=== PATIENT | male | born 1940 | race Caucasian/White ===

== ENCOUNTER 2018-09-16 14:06 | Inpatient (IN) | payer MEDICARE, OTHER, SELFPAY ==
[2018-09-16] VITALS (8 sets, daily range): BP systolic 101–135; BP diastolic 55–85; PULSE 69–73; RESP 13–19; TEMP 36.3–36.4; O2SAT 96–100; BMI 29.2
--- NOTE | 2018-09-16 | DI.ECHO.S_ITS ---
[facility] +---------+ : : [address] : : : [place], [place] : : : : [id number] : : : : Phone: [phone]+ Echocardiogram Report + + :Name: LIDIA STEVENS Study Date: 09/17/2018 Height: 76 in : :[facility] Exam Location: [facility] Weight: 240 lb : : Gender: Male BSA: 2.4 m2 : :: 1940 Age: 77 yrs BP: 116/74 mmHg: :Reason For Study: Heart failure / Valve repair : :Ordering Physician: Nik : :Hospitalist Performed By: Xiomara Page : :Referring: JONATHAN MOSES : + + Interpretation Summary There is mild concentric left ventricular hypertrophy. The left ventricle is normal in size. Left ventricular ejection fraction is estimated to be 50 +/- 5%. Left ventricular systolic function has significantly improved compared to the previous exam. Mild inferolateral hypokinesis and basal inferior hypokinesis The right ventricle is moderate to severely dilated. There is a pacemaker lead in the right ventricle. Right ventricular systolic function is moderately reduced. Both atria are severely dilated. The mitral valve has been surgically repaired and an annuloplasty ring sewn in place. The aortic valve is mildly calcified. There is mild aortic regurgitation. There is moderate tricuspid regurgitation. Right ventricular systolic pressure is estimated to be 25 mmHg plus the clinically estimated CVP which cannot be estimated on this exam. Procedure: A two-dimensional transthoracic echocardiogram with color flow and Doppler was performed. The study quality was technically difficult. Comparison is made with the echocardiogram of 05/09/2011. The patient has a paced rhythm. Left Ventricle: The left ventricle is normal in size. There is mild concentric left ventricular hypertrophy. Left ventricular ejection fraction is estimated to be 50 +/- 5%. Left ventricular systolic function has significantly improved compared to the previous exam. Mild inferolateral hypokinesis and basal inferior hypokinesis. Diastolic function could not be accurately assessed due to paced rhythm. Right Ventricle: The right ventricle is moderate to severely dilated. There is a pacemaker lead in the right ventricle. Right ventricular systolic function is moderately reduced. Atria: Both atria are severely dilated. There is no Doppler evidence for an interatrial shunt. The interatrial septum bows toward right atrium consistent with elevated left atrial pressure. Mitral Valve: The mitral valve has been surgically repaired and an annuloplasty ring sewn in place. There is trace mitral regurgitation. Aortic Valve: The aortic valve is not well visualized. The aortic valve is mildly calcified. The aortic valve opens well. There is mild aortic regurgitation. Tricuspid Valve: The tricuspid valve leaflets are thin and pliable. There is moderate tricuspid regurgitation. Right ventricular systolic pressure is estimated to be 25 mmHg plus the clinically estimated CVP which cannot be estimated on this exam. Pulmonic Valve: The pulmonic valve is not well visualized. There is a trace or physiologic amount of pulmonic regurgitation. Great Vessels: The aortic root is normal size. The ascending aorta could not be visualized. The aortic arch could not be visualized. The pulmonary artery is not well visualized, but is probably normal size. The inferior vena cava was not visualized. Pericardium/ Pleura There is no pericardial effusion. There is no pleural effusion. MMode/2D Measurements & Calculations LVIDd: 4.8 cm LVOT diam: 2.3 cm LVIDs: 3.7 cm Ao root diam: 3.8 cm FS: 22.3 % EPSS: 0.28 cm IVSd: 1.1 cm LVPWd: 1.2 cm LV maier. diameter/BSA (cm/m^2): 2.0 LV sys. diameter/BSA (cm/m^2): 1.6 LA A2 area: 58.9 cm2 RA long axis: 8.8 cm LA A4 area: 62.1 cm2 RA area: 49.5 cm2 LA length (vol): 9.7 cm RA vol: 236.7 ml LA vol: 320.1 ml RA : 98.9 ml/m2 LA vol index: 133.7 ml/m2 RVD1 (basal): 5.7 cm Doppler Measurements & Calculations Ao V2 max: 138.9 cm/sec LVOT Max Lg: 85.7 cm/sec Ao V2 mean: 101.0 cm/sec LV V1 max P.9 mmHg Ao max P.7 mmHg LV V1 VTI: 16.8 cm Ao mean P.4 mmHg CARLOS(I,D): 2.7 cm2 Ao V2 VTI: 25.8 cm CARLOS(V,D): 2.6 cm2 sev ratio: 0.65 CARLOS indexed to BSA (cm^2/m^2): 1.1 AI P1/2t: 540.2 msec AI dec slope: 226.1 cm/sec2 MV E max lg: 146.1 cm/sec TR max lg: 251.6 cm/sec MV P1/2t: 71.4 msec TR max P.3 mmHg MVA(VTI): 1.9 cm2 PA V2 max: 69.3 cm/sec PA V2 mean: 51.2 cm/sec PA mean P.1 mmHg PA Accel Time: 0.09 sec MV V2 mean: 63.3 cm/sec MV P1/2t max lg: 147.0 cm/sec MV mean P.3 mmHg MVA(P1/2t): 3.1 cm2 MV V2 VTI: 36.7 cm SV(LVOT): 70.1 ml Reading Physician:04:59 PM
--- NOTE | 2018-09-16 14:58 | DI.RAD.S_ITS ---
PROCEDURE: XR CHEST 1V INDICATIONS: SHORTNESS OF BREATH TECHNIQUE: One view of the chest was acquired. COMPARISON: [facility], , CHEST 1 VIEW, 10/01/2013, 21:21. FINDINGS: Surgical changes and devices: Median sternotomy wires and left chest wall cardiac device position is unchanged. Lungs and pleura: Blunting of left costophrenic angle is seen suggestive of trace left pleural effusion and left basilar atelectasis. No definite focal infiltrate. No gross pneumothorax. Mediastinum: Mediastinal contours appear normal. Heart size is enlarged. Bones and chest wall: No suspicious bony lesions. Overlying soft tissues appear unremarkable. IMPRESSION: Suggestion of trace left pleural effusion/thickening with left basilar atelectasis. No focal infiltrate or pneumothorax. Dictated by: Sanjay Vann M.D. on 09/16/2018 at 15:39 Approved by: Sanjay Vann M.D. on 09/16/2018 at 15:40
[2018-09-16 15:04] LABS: Add Manual Diff / Slide Review NO; Basophils Absolute Auto 100 /uL (0-100); Basophils Percent Auto 0.8 % (0-2); Eosinophils Absolute Auto 0 /uL (0-450); Eosinophils Percent Auto 0.4 % (2-4); Hematocrit 28.9 % (41-53); Hemoglobin 9.8 g/dL (13.5-17.5); Lymphocytes Absolute Auto 900 /uL (1100-4500); Lymphocytes Percent Auto 9.7 % (25-40); Mean Corpuscular HGB Conc 33.8 % (30-36); Mean Corpuscular Hemoglobin 32.2 PG (26-34); Mean Corpuscular Volume 95.2 fL (80-100); Monocytes Absolute Auto 1000 /uL (0-900); Neutrophils Absolute Auto 7800 /uL (1500-7000); Neutrophils Percent Auto 79.1 % (50-75); Platelet Count 183 X10^3/uL (150-400); Red Blood Cell Count 3.04 X10^6/uL (4.5-5.9); Red Cell Distribution Width 17.2 % (11.6-14.8); White Blood Cell Count 9.8 X10^3/uL (4.5-11.0)
[2018-09-16 15:16] LABS: Alanine Aminotransferase 38 IU/L (21-72); Albumin 3.3 g/dL (3.5-5.0); Albumin Globulin Ratio 1.2 (1.0-2.8); Alkaline Phosphatase 61 U/L (38-126); Aspartate Aminotransferase 51 IU/L (17-59); Bilirubin Total 3.8 mg/dL (0.2-1.3); Blood Urea Nitrogen 33 mg/dL (9-20); Calcium 8.6 mg/dL (8.4-10.2); Carbon Dioxide 29 mmol/L (22-32); Chloride 93 mmol/L (98-107); Creatine Kinase 178 U/L (55-170); Estimated Glomerular Filt Rate 45.3 mL/min (>60); Globulin 2.8 g/dL (1.7-4.1); Glucose 88 mg/dL (80-110); HEMOLYSIS < 15 (0-50); Lipase 90 U/L (23-300); Potassium 4.1 mmol/L (3.4-5.1); Sodium 130 mmol/L (137-145); Total Protein 6.1 g/dL (6.3-8.2)
[2018-09-16 15:23] LABS: B Type Natriuretic Peptide 445 (<100)
--- NOTE | 2018-09-16 15:26 | ED_ITS ---
HPI - Abdominal Pain General Chief Complaint: Abdominal Pain Stated Complaint: states pubic area is all black,legs swelling Time Seen by Provider: 09/16/18 14:54 Source: patient Mode of arrival: ambulatory Limitations: no limitations History of Present Illness HPI narrative: Patient is a 77-year-old male who presents with a variety of complaints. He has a history of a pacemaker and possibly congestive heart failur e presenting with increasing shortness of breath. He has noticed increasing lower extremity edema in his legs. At he gets more short of breath with exertion. 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 Since then he has notice worsening affect. He denies any chest pain or heart palpitations. His bigger complaint today is that he has right hip pain. He denies any fall. His cousin who states she feeds him dinner every night 2 weeks ago he was able to walk from his truck into her house without stopping and now is unable to get out of the truck due to severe right hip pain. He is noted to have a signific ant contusion along his right leg and abdomen. He is on Coumadin for valve replacement and pacemaker. He denies falling or any injury. He does not really have abdominal pain but is noted to have significant contusion on his abdomen. Related Data Home Medications Medication Instructions Recorded Confirmed Fish Oil 1,000 mg PO DAILY #0 12/27/11 09/16/18 amlodipine 5 mg PO DAILY 09/16/18 09/16/18 anastrozole 0.5 mg PO 2XW 09/16/18 09/16/18 carvedilol 25 mg PO BID 09/16/18 09/16/18 furosemide 40 mg PO DAILY 09/16/18 09/16/18 levothyroxine 50 mcg PO DAILY 09/16/18 09/16/18 lisinopril 10 mg PO BID 09/16/18 09/16/18 spironolactone 12.5 mg PO BID 09/16/18 09/16/18 testosterone 1 applic TOPICAL DIRECTED 09/16/18 09/16/18 thyroid (pork) [[place] Thyroid] 45 mg PO DAILY 09/16/18 09/16/18 warfarin 2.5 mg PO WE 09/16/18 09/16/18 warfarin 5 mg PO SUMOTUTHFRSA 09/16/18 09/16/18 Allergies Allergy/AdvReac Type Severity Reaction Status Date / Time No Known Drug Allergies Allergy Verified 09/16/18 16:17 Review of Systems Review of Systems ROS Unobtainable: All systems reviewed & are unremarkable except as noted in HPI and below Constitutional Denies chills, Denies fever(s), Denies lethargy and Denies weakness Cardiovascular Reports as per HPI, Reports dyspnea on exertion and Denies orthopnea Respiratory Reports as per HPI and Reports dyspnea on exertion Gastrointestinal Gastrointestinal: Denies abdominal pain, Denies diarrhea and Denies nausea Genitourinary Denies hematuria, Denies flank pain, Denies urinary incontinence and Denies urinary urgency Musculoskeletal Reports as per HPI Integumentary/Breasts Reports as per HPI Neurologic Denies weakness Hematologic/Lymphatic Reports easy bleeding and Reports easy bruising PFSH Medical History Cardiac valvular malformation (Acute) Hypertension (Acute) Hypothyroid (Acute) Pacemaker (Acute) Surgical History Status post cardiac catheterization (12/25/07) Status post hernia repair Status post transurethral resection of prostate Family History Father Heart disease Social History Smoking Status: Never smoker Family History Father Heart disease Social History Smoking Status: Never smoker Exam Initial Vital Signs Initial Vital Signs: Vital Signs Temperature 97.5 F L 09/16/18 14:37 Pulse Rate 69 09/16/18 14:37 Respiratory Rate 13 09/16/18 14:37 Blood Pressure 102/66 09/16/18 14:37 Pulse Oximetry 96 09/16/18 14:37 Gen.: Alert pleasant elderly male HEENT: Atraumatic no contusion no depression, EOMI Neck: Supple no vertebral tenderness Lungs: Slight rales at bases no respiratory distress no wheezing speaks in full sentences without difficulty Cardiac: Regular rate no murmurs S1-S2 her Abdomen: Non tender no guarding no rebound Extremities: +3 is pitting edema bilateral lower extremities, no gross bony deformities. Tender right hip area. Distal pulses difficult to feel due to such significant swelling. Neurologic: Alert oriented x3 immigration manager strength equal bilaterally moving all extremities skin: Significant extensive contusion in abdomen and right thigh and hip area. It does extend onto his back as well. Slightly tender to touch. Course Orders Ordered: ED Orders 09/16/18 14:55 B Type Natriuretic Peptide Stat Complete Blood Count AUTO DIFF Stat Comprehensive Metabolic Panel Stat Lipase Stat Partial Thromboplastin Time Stat Prothrombin Time INR Stat Troponin & CK Cardiac Panel Stat 09/16/18 14:58 XR chest 1V Stat 09/16/18 15:25 CT abdomen pelvis w con Stat 09/16/18 15:38 EKG-12 Lead Stat Carvedilol (Coreg) 25 mg PO BID MARSHALL Furosemide (Lasix) 40 mg PO DAILY MARSHALL Lisinopril (Zestril) 10 mg PO BID MARSHALL Spironolactone (Aldactone) 12.5 mg PO BID MARSHALL Discontinued Medications Furosemide (Lasix) 60 mg IV NOW ONE Stop: 09/16/18 15:26 Last Admin: 09/16/18 15:59 Dose: 60 mg Phytonadione (Mephyton) 5 mg PO NOW ONE Stop: 09/16/18 16:01 Last Admin: 09/16/18 16:11 Dose: 5 mg Prothrombin Complex Concent (Human) (Kcentra 1,000 Unit Vial) 5,000 unit IV NOW ONE Stop: 09/16/18 18:01 Last Admin: 09/16/18 18:52 Dose: 5,000 unit Vital Signs - 8 hr 09/16/18 14:37 09/16/18 16:14 09/16/18 17:00 Temperature 97.5 F L Pulse Rate 69 70 73 Respiratory Rate 13 19 18 Blood Pressure 102/66 Blood Pressure [Right Arm] 114/77 135/85 Pulse Oximetry 96 100 100 09/16/18 17:55 Temperature 97.4 F L Pulse Rate 72 Respiratory Rate 14 Blood Pressure 116/74 Blood Pressure [Right Arm] Pulse Oximetry 98 MDM - Abdominal Pain Lab Data Attestation: I reviewed the patient's lab results. Result diagrams: 09/16/18 14:55 09/16/18 14:55 Lab Results 09/16/18 09/16/18 09/16/18 Range/Units 14:55 14:55 14:55 WBC 9.8 (4.5-11.0) X10^3/uL RBC 3.04 L (4.5-5.9) X10^6/uL Hgb 9.8 L (13.5-17.5) g/dL Hct 28.9 L (41-53) % MCV 95.2 (80-100) fL MCH 32.2 (26-34) PG MCHC 33.8 (30-36) % RDW 17.2 H (11.6-14.8) % Plt Count 183 (150-400) X10^3/uL Neut % (Auto) 79.1 H (50-75) % Lymph % (Auto) 9.7 L (25-40) % [place] % (Auto) 10.0 (3-14) % Eos % (Auto) 0.4 L (2-4) % Baso % (Auto) 0.8 (0-2) % Neut # (Auto) 7800 H (0878-6393) /uL Lymph # (Auto) 900 L (1244-2111) /uL [place] # (Auto) 1000 H (0-900) /uL Eos # (Auto) 0 (0-450) /uL Baso # (Auto) 100 (0-100) /uL PT (10.1-12.7) SECONDS INR (0.9-1.3) APTT (26.4-36.2) SECONDS Sodium 130 L (137-145) mmol/L Potassium 4.1 (3.4-5.1) mmol/L Chloride 93 L (98-107) mmol/L Carbon Dioxide 29 (22-32) mmol/L BUN 33 H (9-20) mg/dL Creatinine 1.50 H (0.66-1.25) mg/dL Estimated GFR 45.3 L (>60) mL/min BUN/Creatinine Ratio 22.0 (6-22) Glucose 88 (80-110) mg/dL Calcium 8.6 (8.4-10.2) mg/dL Total Bilirubin 3.8 H (0.2-1.3) mg/dL AST 51 (17-59) IU/L ALT 38 (21-72) IU/L Alkaline Phosphatase 61 (38-126) U/L Total Creatine Kinase 178 H (55-170) U/L CK-MB (CK-2) 1.92 (<2.37) ng/mL CK-MB (CK-2) Rel Index 1.1 L (1.5-5.0) % Troponin I 0.025 (0.01-0.034) ng/mL B-Natriuretic Peptide 445 H (<100) Total Protein 6.1 L (6.3-8.2) g/dL Albumin 3.3 L (3.5-5.0) g/dL Globulin 2.8 (1.7-4.1) g/dL Albumin/Globulin Ratio 1.2 (1.0-2.8) Lipase 90 (23-300) U/L 09/16/18 Range/Units 14:55 WBC (4.5-11.0) X10^3/uL RBC (4.5-5.9) X10^6/uL Hgb (13.5-17.5) g/dL Hct (41-53) % MCV (80-100) fL MCH (26-34) PG MCHC (30-36) % RDW (11.6-14.8) % Plt Count (150-400) X10^3/uL Neut % (Auto) (50-75) % Lymph % (Auto) (25-40) % [place] % (Auto) (3-14) % Eos % (Auto) (2-4) % Baso % (Auto) (0-2) % Neut # (Auto) (1557-9589) /uL Lymph # (Auto) (6084-1745) /uL [place] # (Auto) (0-900) /uL Eos # (Auto) (0-450) /uL Baso # (Auto) (0-100) /uL PT 152.0 H (10.1-12.7) SECONDS INR 12.6 H* (0.9-1.3) APTT 78 H* (26.4-36.2) SECONDS Sodium (137-145) mmol/L Potassium (3.4-5.1) mmol/L Chloride (98-107) mmol/L Carbon Dioxide (22-32) mmol/L BUN (9-20) mg/dL Creatinine (0.66-1.25) mg/dL Estimated GFR (>60) mL/min BUN/Creatinine Ratio (6-22) Glucose (80-110) mg/dL Calcium (8.4-10.2) mg/dL Total Bilirubin (0.2-1.3) mg/dL AST (17-59) IU/L ALT (21-72) IU/L Alkaline Phosphatase (38-126) U/L Total Creatine Kinase (55-170) U/L CK-MB (CK-2) (<2.37) ng/mL CK-MB (CK-2) Rel Index (1.5-5.0) % Troponin I (0.01-0.034) ng/mL B-Natriuretic Peptide (<100) Total Protein (6.3-8.2) g/dL Albumin (3.5-5.0) g/dL Globulin (1.7-4.1) g/dL Albumin/Globulin Ratio (1.0-2.8) Lipase (23-300) U/L Imaging Data CT scan - abdomen: Radiologist's impression: PROCEDURE: CT ABDOMEN PELVIS W CON INDICATIONS: significant external brusing on coumadin, no injury TECHNIQUE: After the administration of intravenous contrast, 5 mm thick sections acquired from the diaphragm to the symphysis. 5 mm coronal and sagittal reformats were acquired. For radiation dose reduction, the following was used: automated exposure control, adjustment of mA and/or kV according to patient size. COMPARISON: None. FINDINGS: Image quality: Excellent. ABDOMEN: Lung bases: Emphysematous changes are noted at bilateral lung bases. Bibasilar scarring/atelectasis is seen more prominent on the left side. Trace left pleural effusion is also present. Heart size is normal. Solid organs: Liver is normal in size and enhancement. Gallbladder is contracted and show no gross abnormality. Biliary system is non dilated. Pancreas enhances normally. Spleen is normal in size and enhancement. Thickened left adrenal gland is seen with suggestion of multiple hypodense left adrenal nodules measuring up to 1.5 x 1.3 cm in size and may represent adrenal adenoma. Kidneys demonstrate normal size and enh ancement, without hydronephrosis. Peritoneum and bowel: Bowel loops demonstrate normal wall thickness and caliber. No free fluid or air. Nodes and vessels: No retroperitoneal or mesenteric adenopathy by size criteria. Aorta and inferior vena cava are normal in size. Miscellaneous: No ventral hernias. PELVIS: Genitourinary: Bladder wall thickness is normal. Miscellaneous: No inguinal hernias or adenopathy. Large intramuscular hematoma involving the right gluteus [place], and right gluteus medius and minimus muscles are seen. Bones: No suspicious bony lesions. Osteophytic changes throughout bony pelvis is seen. Degenerative disc disease throughout lumbar spine is noted. No vertebral body compression fractures. IMPRESSION: 1. Large intramuscular hematoma involving right gluteus muscles adjacent to right iliac bone and right hip joint. No gross acute hip fracture or dislocation is seen. Osteoarthritis throughout bony pelvis. 2. No peritoneal free fluid or free air. No retroperitoneal hematoma. 3. Nodular thickening of left adrenal gland, which may represent adrenal adenoma. 4. Trace left pleural effusion and bibasilar atelectasis. Dictated by: Sanjay Vann M.D. on 09/16/2018 at 16:10 Approved by: Sanjay Vann M.D. on 09/16/2018 at 16:17 Chest x-ray: Radiologist's impression: PROCEDURE: XR CHEST 1V INDICATIONS: SHORTNESS OF BREATH TECHNIQUE: One view of the chest was acquired. COMPARISON: [facility], , CHEST 1 VIEW, 10/01/2013, 21:21. FINDINGS: Surgical changes and devices: Median sternotomy wires and left chest wall cardiac device position is unchanged. Lungs and pleura: Blunting of left costophrenic angle is seen suggestive of t race left pleural effusion and left basilar atelectasis. No definite focal infiltrate. No gross pneumothorax. Mediastinum: Mediastinal contours appear normal. Heart size is enlarged. Bones and chest wall: No suspicious bony lesions. Overlying soft tissues appear unremarkable. IMPRESSION: Suggestion of trace left pleural effusion/thickening with left basilar atelectasis. No focal infiltrate or pneumothorax. Dictated by: Sanjay Vann M.D. on 09/16/2018 at 15:39 ECG Data Attestation: I personally reviewed and interpreted this ECG as follows: Prior ECG tracings: available for review Interpretation: Of paced rhythm artifact noted no significant ST changes similar to prior EKG MDM Narrative Medical decision making narrative: Patient has significantly elevated INR 12.6 with extensive contusion and bruising. Patient finally did remember that he did fall about 10 days ago landing on his right hip. I discussed his with radiologist results of a large right gluteal hematoma is specifically asked for any fractures. CT is negative for fractures. Patient is given vitamin K to help decrease his INR. I discussed case with Dr. Mendoza, general surgery, in regards to large hematoma. She says at this time conservative management only. If still having pain is in weeks to months they may drainage however certainly not with a significantly elevated INR. Discussed case with Dr. Calix was happy to accept patient. Agrees with vitamin K. Discharge Plan Departure Patient Disposition: Admitted As Inpatient Clinical Impression: Elevated INR Hematoma of abdominal wall Qualifiers: Encounter type: initial encounter Qualified Code(s): S30.1XXA - Contusion of abdominal wall, initial encounter CHF (congestive heart failure) Qualifiers: Heart failure type: other Qualified Code(s): I50.9 - Heart failure, unspecified Discharge Date/Time: 09/16/18 17:50 Interventions: ED Discharge Assessment Last Done: 09/16/18 17:50 Admit Date/Time: 09/16/18 17:02 Admit Provider: Melissa Calix
[2018-09-16 15:27] LABS: Troponin I 0.025 ng/mL (0.01-0.034)
[2018-09-16 15:32] LABS: CKMB % Relative Index 1.1 % (1.5-5.0); Creatine Kinase MB 1.92 ng/mL (<2.37)
[2018-09-16 15:49] LABS: INR 12.6 (0.9-1.3)
[2018-09-16 15:58] LABS: PTT Partial Thromboplastin Tim 78 SECONDS (26.4-36.2)
[2018-09-16] MEDS: FUROSEMIDE 100 MG/10 ML VIAL 60 MG IV (15:59)
[2018-09-16] MEDS: PHYTONADIONE (VIT K1) 5 MG TABLET PO (16:11)
[2018-09-16] MEDS: PROTHROMBIN CPLX(PCC)4FACT 1,000 UNIT/40 ML VIAL 5000 UNIT IV (18:52)
--- NOTE | 2018-09-16 19:24 | PM.HP.1 ---
History of Present Illness Date Patient Seen: 09/16/18 Time Patient Seen: 19:45 Chief complaint: states pubic area is all black,legs swelling Narrative: This is a 77-year-old gentleman with a history congestive failure, atrial fibrillation, ventricular pacemaker, hypertension and hypothyroidism who presents to the hospital today with complaints of abdominal pain, right hip pain with bruising over right hip in abdomen and leg swelling. The patient was in his usual state health which is active and independent when he took a fall 10 days ago that was a nonsyncopal ground level trip and fall landing on his right hip. He has been anticoagulated on warfarin. The patient reports on his last INR was 3.1 and received no call back for dosage adjustment or instructions, he indicates that was a couple months ago and he has not had INR testing since. He states since the fall he has had pain with ambulation and developed progressive leg swelling with increasing pain in the right ankle. He has been using a walker to ambulate and at baseline has needed no assistive devices. Additionally, the patient was seen approximately 10 days ago at [facility] by Cardiology or the patient had spirolactone added to his medication regimen. The patient is no complaints of headaches or dizziness, has no changes in hearing or vision and is status post cataract surgery bilaterally. Denies neck or back pain. He denies chest pain or palpitations and does have a left anterior chest pacemaker. Reports no shortness of breath, exertional dyspnea or cough. He has had no nausea vomiting and has tenderness the lower abdominal wall with presence of ecchymosis extending laterally into the right buttock. Reports difficulty ambulating related to pain. Since his fall is had developed marked swelling in the lower extremities which reports as new though he has been on diuretic therapy. The patient arrived in the ER at 2:37 p.m. at that time he was found to be afebrile at 97.5, have a heart rate 69, blood pressure of 102/66, respiratory rate of 13 with a saturation of 96% on room air. In the ER the patient had a chest x-ray taken which showed a small left pleural effusion/thickening with left atelectasis and enlarged heart. A CT scan of the abdomen was done with the radiologist interpretation of: a large intramuscular hematoma of the right gluteus muscle adjacent to the iliac bone and right hip without bony fracture, nodular thickening of left adrenal which may represent aunt adrenal adenoma. On lab work the patient was found to have INR supratherapeutic at 12.6. His CBC reveals a white count of 9.8 with a left shift, hemoglobin of 9.8 and hematocrit 28.9 and platelets of 183. His electrolytes are within normal range he has a BUN of 33 and creatinine 1.5. His LFTs are within normal range with an elevated bilirubin of 3.8 He has a negative troponin at 0.025 and elevated total CK at 178 with a normal CK-MB at 1.92 and a low index of 1.1. He has a BNP of 445. In the ER patient additionally had EKG completed, received vitamin K 5 mg and 60 mg of Lasix. The patient is admitted for supratherapeutic INR associated bleeding in the form of a large gluteal hematoma. 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 (Acute) Hypertension (Acute) Hypothyroid (Acute) Pacemaker (Acute) Surgical History History of heart valve repair (Acute) Status post cardiac catheterization (12/25/07) Status post hernia repair Status post transurethral resection of prostate Family History Father Heart disease Social History Smoking Status: Never smoker Family & Social History Safety & Behavioral: Feels Safe in Current Yes Environment Been Physically Hurt or No Threatened By a Person Suicidal Ideation Description None Suicide Plan Description No Plan Tobacco & Substance use: Smoking Status Never smoker alcohol intake frequency holiday/special occasion Substance Use Type does not use Comment: The patient currently lives alone in a single family home. He had been for a ?couple of years? and has been for 25 years. His parents are both passing away from cardiac disease his father notably at the age 49 and his mother at 92. He has no brothers or sisters and has no children. Occupation: Patient is retired [employer] Smoking: Patient has never smoked Alcohol: Occasionally on holidays Substance use: No recreational pharmaceuticals, herbals or cannabis products Advanced directives: Patient desires to be a full code and designates his friend Ramos East as his surrogate decision maker [facility] Medications Medication Instructions Recorded Confirmed Type Fish Oil 1,000 mg PO DAILY #0 12/27/11 09/16/18 History amlodipine 5 mg PO DAILY 09/16/18 09/16/18 History anastrozole 0.5 mg PO 2XW 09/16/18 09/16/18 History carvedilol 25 mg PO BID 09/16/18 09/16/18 History furosemide 40 mg PO DAILY 09/16/18 09/16/18 History levothyroxine 50 mcg PO DAILY 09/16/18 09/16/18 History lisinopril 10 mg PO BID 09/16/18 09/16/18 History spironolactone 12.5 mg PO BID 09/16/18 09/16/18 History testosterone 1 applic TOPICAL DIRECTED 09/16/18 09/16/18 History thyroid (pork) [Garland Thyroid] 45 mg PO DAILY 09/16/18 09/16/18 History warfarin 2.5 mg PO WE 09/16/18 09/16/18 History warfarin 5 mg PO SUMOTUTHFRSA 09/16/18 09/16/18 History Allergies Allergy/AdvReac Type Severity Reaction Status Date / Time No Known Drug Allergies Allergy Verified 09/16/18 16:17 Review of Systems Review of Systems All systems reviewed & are unremarkable except as noted in HPI and below Exam Vital Signs (past 8 hours): - 09/16/18 14:37 09/16/18 16:14 09/16/18 17:00 Temperature 97.5 F L Pulse Rate 69 70 73 Respiratory Rate 13 19 18 Blood Pressure 102/66 Blood Pressure [Right Arm] 114/77 135/85 Pulse Oximetry 96 100 100 09/16/18 17:55 Temperature 97.4 F L Pulse Rate 72 Respiratory Rate 14 Blood Pressure 116/74 Blood Pressure [Right Arm] Pulse Oximetry 98 Oxygen Delivery Method Room Air Oxygen Flow Rate 0 Narrative Exam Narrative: GENERAL APPEARANCE: well developed, well nourished, in no acute distress. HEAD: Normocephalic, atraumatic, no scalp lesions. EYES: pupils equal, round, reactive to light and accommodation, sclera non-icteric, small right subconjunctival hemorrhage, extraocular movement intact . EARS: normal external structures, no ear pain NOSE: nares patent, no lesions, sinuses non tender to percussion, no rhinorrhea ORAL CAVITY: mucosa moist without lesions or exudate, on dentition, palate normal, tongue in midline. THROAT: normal, no erythema, no exudate, pharynx normal, uvula midline. NECK/THYROID: neck supple, no cervical lymphadenopathy, no jugular venous distention, no carotid bruit, no thyromegaly, thyroid nontender, trachea midline. LYMPH NODES: no cervical or supraclavicular lymphadenopathy. SKIN: warm and dry, large area of ecchymosis right lower abdomen sending lateral to the hip and down the right leg, no suspicious lesions, no rashes, good turgor. HEART: regular rate and rhythm, 1/6 systolic murmur loudest over left mid sternal borde, rubs, gallops, brisk capillary refill, 4+ edema extending to above the knees LUNGS: clear to auscultation bilaterally, no coarseness crackles or wheezing CHEST: Symmetrical movement, no accessory muscle use, no pain to AP and lateral compression. ABDOMEN: Soft, no epigastric or upper abdominal tenderness on palpation, abdominal wall pain right lower quadrant and right flank, no guarding or peritoneal signs, no organomegaly, ecchymoses across right lower quadrant extending lateral to the flank and hip and inferiorly across the perineum BACK: Normal curvature, lumbar tenderness to palpation without perispinal muscular spasm, no CVA tenderness EXTREMITIES: moves all extremities, strength is 5/5 and symmetrical, light ecchymosis right leg extending down to the right ankle NEUROLOGIC: AAO x4, no focal neurologic deficits, motor strength normal upper and lower extremities, sensory exam intact to light touch, cranial nerves II-XII grossly intact, hearing grossly normal to speech. PSYCH: Flat affect, short answer to questions alert, mildly impaired memory, stable mood with congruent affect Objective Labs Result Diagrams: 09/16/18 14:55 09/16/18 14:55 Labs: Laboratory Results - last 24 hr 09/16/18 09/16/18 09/16/18 14:55 14:55 14:55 WBC 9.8 RBC 3.04 L Hgb 9.8 L Hct 28.9 L MCV 95.2 MCH 32.2 MCHC 33.8 RDW 17.2 H Plt Count 183 Neut % (Auto) 79.1 H Lymph % (Auto) 9.7 L Mathews % (Auto) 10.0 Eos % (Auto) 0.4 L Baso % (Auto) 0.8 Neut # (Auto) 7800 H Lymph # (Auto) 900 L Mathews # (Auto) 1000 H Eos # (Auto) 0 Baso # (Auto) 100 PT INR APTT Sodium 130 L Potassium 4.1 Chloride 93 L Carbon Dioxide 29 BUN 33 H Creatinine 1.50 H Estimated GFR 45.3 L BUN/Creatinine Ratio 22.0 Glucose 88 Calcium 8.6 Total Bilirubin 3.8 H AST 51 ALT 38 Alkaline Phosphatase 61 Total Creatine Kinase 178 H CK-MB (CK-2) 1.92 CK-MB (CK-2) Rel Index 1.1 L Troponin I 0.025 B-Natriuretic Peptide 445 H Total Protein 6.1 L Albumin 3.3 L Globulin 2.8 Albumin/Globulin Ratio 1.2 Lipase 90 09/16/18 14:55 WBC RBC Hgb Hct MCV MCH MCHC RDW Plt Count Neut % (Auto) Lymph % (Auto) Mathews % (Auto) Eos % (Auto) Baso % (Auto) Neut # (Auto) Lymph # (Auto) Mathews # (Auto) Eos # (Auto) Baso # (Auto) PT 152.0 H INR 12.6 H* APTT 78 H* Sodium Potassium Chloride Carbon Dioxide BUN Creatinine Estimated GFR BUN/Creatinine Ratio Glucose Calcium Total Bilirubin AST ALT Alkaline Phosphatase Total Creatine Kinase CK-MB (CK-2) CK-MB (CK-2) Rel Index Troponin I B-Natriuretic Peptide Total Protein Albumin Globulin Albumin/Globulin Ratio Lipase CT scan - abdomen: Radiologist's impression: PROCEDURE: CT ABDOMEN PELVIS W CON INDICATIONS: significant external brusing on coumadin, no injury TECHNIQUE: After the administration of intravenous contrast, 5 mm thick sections acquired from the diaphragm to the symphysis. 5 mm coronal and sagittal reformats were acquired. For radiation dose reduction, the following was used: automated exposure control, adjustment of mA and/or kV according to patient size. COMPARISON: None. FINDINGS: Image quality: Excellent. ABDOMEN: Lung bases: Emphysematous changes are noted at bilateral lung bases. Bibasilar scarring/atelectasis is seen more prominent on the left side. Trace left pleural effusion is also present. Heart size is normal. Solid organs: Liver is normal in size and enhancement. Gallbladder is contracted and show no gross abnormality. Biliary system is non dilated. Pancreas enhances normally. Spleen is normal in size and enhancement. Thickened left adrenal gland is seen with suggestion of multiple hypodense left adrenal nodules measuring up to 1.5 x 1.3 cm in size and may represent adrenal adenoma. Kidneys demonstrate normal size and enhancement, without hydronephrosis. Peritoneum and bowel: Bowel loops demonstrate normal wall thickness and caliber. No free fluid or air. Nodes and vessels: No retroperitoneal or mesenteric adenopathy by size criteria. Aorta and inferior vena cava are normal in size. Miscellaneous: No ventral hernias. PELVIS: Genitourinary: Bladder wall thickness is normal. Miscellaneous: No inguinal hernias or adenopathy. Large intramuscular hematoma involving the right gluteus [place], and right gluteus medius and minimus muscles are seen. Bones: No suspicious bony lesions. Osteophytic changes throughout bony pelvis is seen. Degenerative disc disease throughout lumbar spine is noted. No vertebral body compression fractures. IMPRESSION: 1. Large intramuscular hematoma involving right gluteus muscles adjacent to right iliac bone and right hip joint. No gross acute hip fracture or dislocation is seen. Osteoarthritis throughout bony pelvis. 2. No peritoneal free fluid or free air. No retroperitoneal hematoma. 3. Nodular thickening of left adrenal gland, which may represent adrenal adenoma. 4. Trace left pleural effusion and bibasilar atelectasis. Dictated by: Sanjay Vann M.D. on 09/16/2018 at 16:10 Approved by: Sanjay Vann M.D. on 09/16/2018 at 16:17 Chest x-ray: Radiologist's impression: PROCEDURE: XR CHEST 1V INDICATIONS: SHORTNESS OF BREATH TECHNIQUE: One view of the chest was acquired. COMPARISON: [facility], CHEST 1 VIEW, 10/01/2013, 21:21. FINDINGS: Surgical changes and devices: Median sternotomy wires and left chest wall cardiac device position is unchanged. Lungs and pleura: Blunting of left costophrenic angle is seen suggestive of trace left pleural effusion and left basilar atelectasis. No definite focal infiltrate. No gross pneumothorax. Mediastinum: Mediastinal contours appear normal. Heart size is enlarged. Bones and chest wall: No suspicious bony lesions. Overlying soft tissues appear unremarkable. IMPRESSION: Suggestion of trace left pleural effusion/thickening with left basilar atelectasis. No focal infiltrate or pneumothorax. Assessment & Plan Assessment & Plan narrative: The patient is admitted to the hospital related to supratherapeutic INR of 12.6 with associated large right hip hematoma. Dr. Mendoza surgery was consulted by the ER physician who recommended conservative treatment related to the supra therapeutic INR. 1. Supratherapeutic INR, present on admission, chronic -patient is on long-term anticoagulation on warfarin -the patient reports an INR 3.1 several months ago and no subsequent testing or just been in medication -patient received 5 mg of vitamin K in the ER as well as 4 factor PCC. -will recheck INR now and follow as appropriate 2. Large right gluteal hematoma, present on admission, acute -patient sustained a fall 10 days ago landing on right hip, patient has been ambulatory since albeit with increasing pain and debility using a walker for assistance. -CT imaging identified a large right gluteal hematoma adjacent to the iliac bone extending to the right hip, without bony fracture. -supratherapeutic INR is reversed as above -PT and OT to consult, evaluate and treat 3. Atrial fibrillation, chronic -12 lead EKG reviewed by myself shows atrial fibrillation with ventricular paced rhythm at a rate of 70, no ectopy or signs of ischemia -will continue carvedilol 25 mg twice daily for rhythm control 4. Congestive heart failure, unspecified, acute on chronic -patient has an enlarged heart on chest x-ray with a mildly elevated BNP of 445 -history of valvular surgery which patient describes as ?valve work?, 1/6 systolic murmur noted, sternal wires are present but no annular ring is visualized on chest x-ray. -marked 4+ bilateral lower extremity edema that the patient reports his progressive -patient also has elevated creatinine at 1.5 a BUN of 33 with recent addition of spironolactone to furosemide -patient takes 40 mg Lasix daily with addition of spironolactone 12.5 mg twice daily by Cardiology 10 days ago -the patient received 60 mg of Lasix in the emergency department, will continue Lasix 40 mg and spironolactone and monitor renal function and edema 5. Elevated serum creatinine, present on admission -it is unknown whether this is a acute or chronic condition -will monitor renal function 6. Hypertension, chronic, stable -Patient has been on amlodipine 5 mg daily, carvedilol 25 mg twice daily Lasix and spirolactone -Blood pressure appears well managed with a blood pressure 102/66. -will hold amlodipine at this time and re-evaluate affect on edema 7. Hypothyroidism, chronic, presumed stable -Pharmacy was called to validate patient is taking both thyroxine 50 mcg and Garland Thyroid 45 mcg since the patient states he cannot recall his medications -obtain a TSH and free T4 levels The patient is admitted to the hospital related to the severity of symptoms as well as high risk of complications. Patient will be admitted as an inpatient with expected length of stay greater than 2 midnights. Scores GCS Sun coma scale eye opening: Spontaneous [place] coma scale verbal response: Orientated Sun coma scale motor response: Obey commands [place] coma scale total score: 15 CHADS-VASc Congestive heart failure: yes Hypertension: yes Age 75 years or older: yes Diabetes mellitus: no Stroke, TIA, or TE: no Vascular disease: no Age 65 to 74 years: yes Sex category (female): Male CHADS-VASc Score: 5 Quality VTE Deep Vein Thrombosis/Pulmonary Embolism Present on Admission: No
[2018-09-16 20:31] LABS: INR 1.3 (0.9-1.3); Prothrombin Time 14.6 SECONDS (10.1-12.7)
[2018-09-16 20:35] LABS: Magnesium 1.9 mg/dL (1.6-2.3)
[2018-09-16] MEDS: CARVEDILOL 25 MG TABLET PO (20:40)
[2018-09-16] MEDS: DOCUSATE 100 MG CAPSULE PO (20:41)
[2018-09-16] MEDS: SPIRONOLACTONE 25 MG TABLET 12.5 MG PO (20:42)
[2018-09-16] MEDS: LISINOPRIL 10 MG TABLET PO (20:42)
[2018-09-16] MEDS: PANTOPRAZOLE 20 MG TABLET PO (21:07)
[2018-09-16] MEDS: HYDROCODONE/ACET 5/325 TABLET 1 TAB PO (22:14)
[2018-09-16 22:18] LABS: Bacteria Urine None Seen; RBC Urine None Seen (0-5/HPF); WBC Urine None Seen (0-5/HPF)
[2018-09-16 22:40] LABS: Appearance Urine UA CLEAR; Bilirubin Urine UA NEGATIVE (NEGATIVE); Color Urine UA YELLOW; Glucose Urine UA NEGATIVE (Negative); Ketones Urine UA NEGATIVE (NEGATIVE); Leukocyte Esterase Urine UA NEGATIVE (NEGATIVE); Nitrite Urine UA NEGATIVE (Negative); Occult Blood Urine UA NEGATIVE (Negative); Protein Urine UA NEGATIVE (Negative); Specific Gravity Urine UA <=1.005 (1.000-1.035)
--- NOTE | 2018-09-16 22:41 | PC.NURSE ---
Pt alert/oriented. Due to frequency to void, has set off bed alarm while sitting up to bedside to void via urinal. LS clear, SOB with exertion. RA 96%. Large hematoma/bruising to right buttock/thigh, bruising on lower back/abdomen and down right leg/thigh to ankle. One tab vicodin given for pain. Using call light appropriately.
[2018-09-16 22:46] LABS: Culture Indicated Urine Cult Not Indicated; Urine Comments Microscopic Normal
[2018-09-17] VITALS (11 sets, daily range): BP systolic 94–119; BP diastolic 51–73; PULSE 70–98; RESP 16–20; TEMP 36.1–36.7; O2SAT 95–98
[2018-09-17 05:24] LABS: INR 1.8 (0.9-1.3); Prothrombin Time 20.4 SECONDS (10.1-12.7)
[2018-09-17 05:28] LABS: Add Manual Diff / Slide Review NO; Basophils Absolute Auto 0 /uL (0-100); Basophils Percent Auto 0.4 % (0-2); Eosinophils Absolute Auto 100 /uL (0-450); Eosinophils Percent Auto 0.7 % (2-4); Hematocrit 26.1 % (41-53); Lymphocytes Absolute Auto 1100 /uL (1100-4500); Lymphocytes Percent Auto 11.5 % (25-40); Mean Corpuscular HGB Conc 34.3 % (30-36); Mean Corpuscular Hemoglobin 32.5 PG (26-34); Mean Corpuscular Volume 94.6 fL (80-100); Monocytes Absolute Auto 1000 /uL (0-900); Monocytes Percent Auto 10.7 % (3-14); Neutrophils Absolute Auto 7200 /uL (1500-7000); Neutrophils Percent Auto 76.7 % (50-75); Platelet Count 169 X10^3/uL (150-400); Red Blood Cell Count 2.76 X10^6/uL (4.5-5.9); Red Cell Distribution Width 16.9 % (11.6-14.8); White Blood Cell Count 9.4 X10^3/uL (4.5-11.0)
[2018-09-17 05:31] LABS: Creatine Kinase 218 U/L (55-170)
[2018-09-17 05:32] LABS: Blood Urea Nitrogen 33 mg/dL (9-20); Calcium 8.1 mg/dL (8.4-10.2); Carbon Dioxide 29 mmol/L (22-32); Chloride 94 mmol/L (98-107); Estimated Glomerular Filt Rate 45.3 mL/min (>60); Glucose 98 mg/dL (80-110); HEMOLYSIS < 15 (0-50); Potassium 3.8 mmol/L (3.4-5.1); Sodium 130 mmol/L (137-145)
[2018-09-17 05:42] LABS: Troponin I 0.026 ng/mL (0.01-0.034)
[2018-09-17 05:46] LABS: CKMB % Relative Index 0.8 % (1.5-5.0); Creatine Kinase MB 1.75 ng/mL (<2.37)
[2018-09-17] MEDS: PANTOPRAZOLE 20 MG TABLET PO (06:10)
[2018-09-17] MEDS: HYDROCODONE/ACET 5/325 TABLET 1 TAB PO (06:10)
[2018-09-17 06:13] LABS: Free T4, Direct Thyroxine 1.59 ng/dL (0.78-2.19)
[2018-09-17 06:27] LABS: Thyroid Stimulating Hormone 2.71 uIU/mL (0.47-4.68)
[2018-09-17] MEDS: LEVOTHYROXINE 50 MCG TABLET PO (08:20)
[2018-09-17] MEDS: FUROSEMIDE 40 MG TABLET PO (08:21)
[2018-09-17] MEDS: SPIRONOLACTONE 25 MG TABLET 12.5 MG PO ×2 (08:21→20:41)
[2018-09-17] MEDS: DOCUSATE 100 MG CAPSULE PO ×2 (08:22→20:41)
[2018-09-17] MEDS: THYROID, PORK 30 MG TABLET 45 MG PO (08:23)
[2018-09-17] MEDS: CARVEDILOL 25 MG TABLET PO ×2 (08:23→20:40)
[2018-09-17] MEDS: SODIUM CHLORIDE 0.9% FLUSH 10 ML IV ×2 (08:26→20:41)
--- NOTE | 2018-09-17 10:31 | PC.NURSE ---
Addendum entered by Carlotta Lynn R.N. 09/17/18 14:39: Pt started on IV lasix 40mg, given at 1305. Since dose pt has voided 225mls kate urine and inc X1 on his way to BR with PT/OT. Pt slightly dizzy upon ambulation with PT/OT to BR, BP checked at 1430 99/64 once back in bed. Original Note: Day Shift- Pt A&OX4, slightly disoriented to date, states 18 of September. Cooperative with care, able to make needs known using call light. High fall risk precautions in place, bed alarm on. Denies pain, states had pain earlier to right hip that was relieved with prn Tylenol. Abd, right hip, outer thigh, outer lower leg has purple bruising. Edema to RLE more than LLE from groin to foot. Pedal pulses found with doppler and marked. BLE edema 3+ pitting.
--- NOTE | 2018-09-17 10:53 | CM.DANOTE ---
Addendum entered by Libra Barrera R.N. 09/17/18 14:58: Met with patient's friend, Ramos Landin, and his . Also met with patient's cousin, Lucila. She gave her phone number of: [phone]. Ramos gave a different phone number to reach him on. His number is: [phone]. Patient has no power of chemist pharmaceutical, or immediate family in the area. Apparently, he goes over to his cousin Lucila's house for dinner. He has breakfast at Ramos's house. They voiced concerns regarding patient's living environment. They stated that house is cluttered and dirty. Asked if he has gone to see his primary provider. They stated that he goes to the walk in clinic if he needs any care. He also sees a flatwork catcher in [place] named Dr. Gallardo at [facility]. Their number is: [phone]. Spoke to [facility], for Dr. Gillespie and Urmila Means are listed on face sheet. They stated that they have not seen him in 6 years, and he would need to get re-established. Stated that they have a nurse practitioner that can see him, Randi Ma. May try to pursue skilled, if he is here for 3 days, and if patient will consent to go, for medication management and weakness. Original Note: DCP: Case received, EMR reviewed and met with patient. Introduced self and role. DCP template completed with information currently available. Patient is a 77 year old male who admitted yesterday afternoon to the care of the hospitalist team. PCP: Dr. Gillespie. Payer: confirmed: Medicare/[employer]. Patient came to hospital due to hematoma to right hip region. Patient had a fall approximately 10 days ago. He is also on Warfarin for cardiac issues. Was noted to have an increased INR. Patient has history of A-fib, CHF, and has a pacemaker. He is a full code, and is . Lives at home alone. Has a friend named Ramos Landin, who helps him out. He also uses a walker. P: DCP to continue to follow closely, and will see how he progresses here in hospital. Libra Barrera RN/Sourcing Assistant
--- NOTE | 2018-09-17 11:26 | PT.IPTN ---
Current Diagnoses Hypothyroidism, unspecified (09/16/18) Essential (primary) hypertension (09/16/18) Chronic atrial fibrillation (09/16/18) Heart failure, unspecified (09/16/18) Abnormal coagulation profile (09/16/18) Physical Therapy Treatment Note Notes Pt currently getting echo, will check back in the afternoon.
--- NOTE | 2018-09-17 11:50 | PM.PN.1 ---
Subjective Date Patient Seen: 09/17/18 Interval history: The patient is a 77-year-old male with a history of atrial fibrillation, pacemaker placement, congestive heart failure presumably systolic dysfunction who presented with a supratherapeutic INR and a right gluteal hematoma. Patient also has significant bilateral pedal edema exertional shortness of breath and likely decompensated congestive heart failure as well. He reports he continues to have pain in the gluteal area. His edema has been worse most recently and he has had associated shortness of breath. Patient does confirm that he was not getting his INR checked. Last INR was 3.1/1 month ago. Following administration of factor for concentrate his INR corrected from 12.6-1.8. Exam Vital Signs (past 8 hours): - 09/17/18 04:36 09/17/18 08:00 09/17/18 08:23 Temperature 97.4 F L 97.6 F Pulse Rate 70 70 70 Respiratory Rate 16 16 Blood Pressure 117/65 98/63 108/66 Pulse Oximetry 95 98 09/17/18 09:09 09/17/18 10:18 09/17/18 11:00 Temperature 98 F Pulse Rate 70 70 Respiratory Rate 16 Blood Pressure 101/51 L 94/52 L Pulse Oximetry 98 97 Oxygen Delivery Method Room Air Oxygen Flow Rate 0 Narrative Exam Narrative: Pleasant elderly gentleman who appears to be somewhat uncomfortable from pain lungs: Decreased breath sounds bilaterally cardiac exam: Irregularly irregular normal S1-S2 with a 2/6 systolic ejection murmur abdomen: Soft nontender skin: Multiple bruising and ecchymoses on the abdomen right flank right thigh and right hip lower extremity: 4+ bilateral pitting edema Objective Labs Result Diagrams: 09/17/18 05:00 09/17/18 05:00 Labs: Laboratory Results - last 24 hr 09/16/18 09/16/18 09/16/18 14:55 14:55 14:55 WBC 9.8 RBC 3.04 L Hgb 9.8 L Hct 28.9 L MCV 95.2 MCH 32.2 MCHC 33.8 RDW 17.2 H Plt Count 183 Neut % (Auto) 79.1 H Lymph % (Auto) 9.7 L [place] % (Auto) 10.0 Eos % (Auto) 0.4 L Baso % (Auto) 0.8 Neut # (Auto) 7800 H Lymph # (Auto) 900 L [place] # (Auto) 1000 H Eos # (Auto) 0 Baso # (Auto) 100 PT INR APTT Sodium 130 L Potassium 4.1 Chloride 93 L Carbon Dioxide 29 BUN 33 H Creatinine 1.50 H Estimated GFR 45.3 L BUN/Creatinine Ratio 22.0 Glucose 88 Calcium 8.6 Phosphorus Magnesium Total Bilirubin 3.8 H AST 51 ALT 38 Alkaline Phosphatase 61 Total Creatine Kinase 178 H CK-MB (CK-2) 1.92 CK-MB (CK-2) Rel Index 1.1 L Troponin I 0.025 B-Natriuretic Peptide 445 H Total Protein 6.1 L Albumin 3.3 L Globulin 2.8 Albumin/Globulin Ratio 1.2 Lipase 90 TSH Free T4 Urine Color Urine Appearance Urine pH Ur Specific [place] Urine Protein Urine Glucose (UA) Urine Ketones Urine Occult Blood Urine Nitrate Urine Bilirubin Urine Urobilinogen Ur Leukocyte Esterase Urine RBC Urine WBC Urine Bacteria Ur Culture Indicated? Micro UA Comment 09/16/18 09/16/18 09/16/18 14:55 20:15 20:15 WBC RBC Hgb Hct MCV MCH MCHC RDW Plt Count Neut % (Auto) Lymph % (Auto) [place] % (Auto) Eos % (Auto) Baso % (Auto) Neut # (Auto) Lymph # (Auto) [place] # (Auto) Eos # (Auto) Baso # (Auto) PT 152.0 H INR 12.6 H* APTT 78 H* Sodium Potassium Chloride Carbon Dioxide BUN Creatinine Estimated GFR BUN/Creatinine Ratio Glucose Calcium Phosphorus 3.0 Magnesium 1.9 Total Bilirubin AST ALT Alkaline Phosphatase Total Creatine Kinase CK-MB (CK-2) CK-MB (CK-2) Rel Index Troponin I B-Natriuretic Peptide Total Protein Albumin Globulin Albumin/Globulin Ratio Lipase TSH Free T4 Urine Color Urine Appearance Urine pH Ur Specific [place] Urine Protein Urine Glucose (UA) Urine Ketones Urine Occult Blood Urine Nitrate Urine Bilirubin Urine Urobilinogen Ur Leukocyte Esterase Urine RBC Urine WBC Urine Bacteria Ur Culture Indicated? Micro UA Comment 09/16/18 09/16/18 09/17/18 20:15 Unknown 05:00 WBC RBC Hgb Hct MCV MCH MCHC RDW Plt Count Neut % (Auto) Lymph % (Auto) [place] % (Auto) Eos % (Auto) Baso % (Auto) Neut # (Auto) Lymph # (Auto) [place] # (Auto) Eos # (Auto) Baso # (Auto) PT 14.6 H D INR 1.3 APTT Sodium Potassium Chloride Carbon Dioxide BUN Creatinine Estimated GFR BUN/Creatinine Ratio Glucose Calcium Phosphorus Magnesium Total Bilirubin AST ALT Alkaline Phosphatase Total Creatine Kinase CK-MB (CK-2) CK-MB (CK-2) Rel Index Troponin I B-Natriuretic Peptide Total Protein Albumin Globulin Albumin/Globulin Ratio Lipase TSH 2.71 Free T4 1.59 Urine Color Yellow Urine Appearance Clear Urine pH 6.0 Ur Specific [place] <=1.005 Urine Protein Negative Urine Glucose (UA) Negative Urine Ketones Negative Urine Occult Blood Negative Urine Nitrate Negative Urine Bilirubin Negative Urine Urobilinogen 1.0 Ur Leukocyte Esterase Negative Urine RBC None seen Urine WBC None seen Urine Bacteria None seen Ur Culture Indicated? Cult not indicated Micro UA Comment Microscopic normal 09/17/18 09/17/18 09/17/18 05:00 05:00 05:00 WBC 9.4 RBC 2.76 L Hgb 9.0 L Hct 26.1 L MCV 94.6 MCH 32.5 MCHC 34.3 RDW 16.9 H Plt Count 169 Neut % (Auto) 76.7 H Lymph % (Auto) 11.5 L [place] % (Auto) 10.7 Eos % (Auto) 0.7 L Baso % (Auto) 0.4 Neut # (Auto) 7200 H Lymph # (Auto) 1100 [place] # (Auto) 1000 H Eos # (Auto) 100 Baso # (Auto) 0 PT 20.4 H D INR 1.8 H APTT Sodium 130 L Potassium 3.8 Chloride 94 L Carbon Dioxide 29 BUN 33 H Creatinine 1.50 H Estimated GFR 45.3 L BUN/Creatinine Ratio 22.0 Glucose 98 Calcium 8.1 L Phosphorus Magnesium Total Bilirubin AST ALT Alkaline Phosphatase Total Creatine Kinase CK-MB (CK-2) CK-MB (CK-2) Rel Index Troponin I B-Natriuretic Peptide Total Protein Albumin Globulin Albumin/Globulin Ratio Lipase TSH Free T4 Urine Color Urine Appearance Urine pH Ur Specific [place] Urine Protein Urine Glucose (UA) Urine Ketones Urine Occult Blood Urine Nitrate Urine Bilirubin Urine Urobilinogen Ur Leukocyte Esterase Urine RBC Urine WBC Urine Bacteria Ur Culture Indicated? Micro UA Comment 09/17/18 05:00 WBC RBC Hgb Hct MCV MCH MCHC RDW Plt Count Neut % (Auto) Lymph % (Auto) [place] % (Auto) Eos % (Auto) Baso % (Auto) Neut # (Auto) Lymph # (Auto) [place] # (Auto) Eos # (Auto) Baso # (Auto) PT INR APTT Sodium Potassium Chloride Carbon Dioxide BUN Creatinine Estimated GFR BUN/Creatinine Ratio Glucose Calcium Phosphorus Magnesium Total Bilirubin AST ALT Alkaline Phosphatase Total Creatine Kinase 218 H CK-MB (CK-2) 1.75 CK-MB (CK-2) Rel Index 0.8 L Troponin I 0.026 B-Natriuretic Peptide Total Protein Albumin Globulin Albumin/Globulin Ratio Lipase TSH Free T4 Urine Color Urine Appearance Urine pH Ur Specific [place] Urine Protein Urine Glucose (UA) Urine Ketones Urine Occult Blood Urine Nitrate Urine Bilirubin Urine Urobilinogen Ur Leukocyte Esterase Urine RBC Urine WBC Urine Bacteria Ur Culture Indicated? Micro UA Comment Assessment & Plan (1) Hematoma of abdominal wall: Problem details: the patient is status post 5000 units of K Centra. His INR has improved. His his blood count is stable and there is no evidence of ongoing bleeding. Will continue to monitor his INR. Consider resuming Coumadin at a lower dose in 1-2 day Qualifiers: Encounter type: initial encounter Qualified Code(s): S30.1XXA - Contusion of abdominal wall, initial encounter Current visit: Yes Status: Acute (2) CHF (congestive heart failure): Problem details: patient is awaiting cardiac echo. This will determine whether he has systolic or diastolic dysfunction. Suspect the patient has acute on chronic systolic dysfunction echo to confirm. Will start the patient on IV Lasix given his significant peripheral edema. Will hold his lisinopril given his low blood pressure but resume once he is no longer on the IV Lasix Qualifiers: Heart failure chronicity: Heart failure type: other Qualified Code(s): I50.9 - Heart failure, unspecified Current visit: Yes Status: Acute (3) Elevated INR: Problem details: supratherapeutic INR has improved. Will need close monitoring of Coumadin. Would consider alternative anticoagulation given this occurrence. Current visit: Yes Status: Acute (4) Chronic atrial fibrillation: Problem details: Patient's rate is controlled. Will continue Coreg. Coumadin on hold but will resume shortly. Current visit: No Status: None (5) Essential hypertension with goal blood pressure less than 140/90: Problem details: Continue Coreg. Lisinopril on hold. Will resume once blood pressure tolerates Current visit: No Status: None (6) Acquired hypothyroidism: Problem details: continue levothyroxine Current visit: No Status: None (7) Anemia in chronic illness: Problem details: will continue to follow Current visit: Yes Status: Acute Quality VTE Deep Vein Thrombosis/Pulmonary Embolism Present on Admission: No
[2018-09-17] MEDS: FUROSEMIDE 40 MG/4 ML VIAL IV (13:05)
--- NOTE | 2018-09-17 14:38 | OT.IP.EVAL ---
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 (Acute) Hypertension (Acute) Hypothyroid (Acute) Pacemaker (Acute) Surgical History (Last Reviewed 09/16/18 @ 21:19 by TULIO Suazo) History of heart valve repair (Acute) Status post cardiac catheterization (12/25/07) Status post hernia repair Status post transurethral resection of prostate Occupational Therapy Inpatient Evaluation/Re-Eval M1 PT/OT-IP Prior Functional Status Start: 09/17/18 09:08 Freq: NEEDED Status: Active Protocol: Document 09/17/18 14:40 RS (Rec: 09/17/18 15:02 RS [id number]) Medical Review Prior Functional Status Medical History Reviewed Yes Diet/Fluid Consistency Regular Communication no known deficits Mobility and Gait Pt normally walks without a device w/occasional use of SPC, has recently been using a FWW after fall ~10 days ago, denies any other falls Activities of Daily Living and IADL's sits in tub for bathing Prior Functional Level (Other details) drives, eats dinner at his cousin's house nightly, eats breakfast at friend's house Social History Household Members none Living Arrangements House Number of Floors (Floors) One Floor Number of Stairs To Enter/Railing? ramped entry (portable ramp)pt tripped on ramp w/fall 10 days ago Home Environment Tub/Shower Home Equipment Front Wheel Walker Straight Cane Grab Bars In Shower Employment Status Retired M2 OT-IP Current Condition Start: 09/17/18 16:07 Freq: Status: Active Protocol: Document 09/17/18 14:38 PJM (Rec: 09/17/18 16:42 PJM [id number]) Occupational Therapy Current Condition Current Condition Evaluation Date 09/17/18 Treatment Diagnosis decr'd self care,mobility s/p fall w/supratherapeuic INR, abd wall hematoma Diagnosis Onset Date 09/16/18 Post Operative Precautions Other Precautions large abdominal wall intramuscular hematoma of R gluteal muscle extending to R iliac bone and hip joint with extensive bruising of R hip/ flank area Weight Bearing Status Weight Bearing Status Weight Bear as Tolerated M3 OT- IP Subjective and Pain Start: 09/17/18 16:07 Freq: Status: Active Protocol: Document 09/17/18 14:38 PJM (Rec: 09/17/18 16:42 PJ [id number]) OT- Subjective Occupational Therapy Visit Type Type Initial Evaluation Visit Start Time 14:11 Visit Stop Time 14:38 Total Visit Minutes 27 Notes Partial co eval with P.T. to conserve energy. Pt irritable with questions and declines gait belt or CGA for gait to bathroom. Just get out of my way. Occupational Therapy Visit Comments Patient/Caregiver Goals none verbalized this session OT Pain Assessment Pain When Pain Assessed After Treatment Pain Present Pain Present Pain Reported FLACC Pain Scale Face Occasional grimace/frown Legs Uneasy, restless, tense Activity Quiet, moves easily Cry No cry (awake or asleep) Consolability Reassurable with touch FLACC Total 3 Location Right Hip Scale Used does not rate on 10 pt scale M4 OT- IP ADL's Start: 09/17/18 16:07 Freq: Status: Active Protocol: Document 09/17/18 14:38 PJM (Rec: 09/17/18 16:42 PJ [id number]) OT OCG-Hdfu-Sxwyiue General Evaluation Self-Feeding Ability Independent OT ADL-Grooming Comments OT Grooming Comments pt declined to wash his hands after using bathroom or use hand slip dumper OT ADL-Oral Care Comments Oral Care Comments pt declined OT ADL-Dressing General Eval Upper Body Dressing Ability Standby Assistance Areas Needing Assistance Underpants/Brief Comments OT Dressing Comments pt able to change brief seated EOB with no LOB noted OT ADL-Toileting General Evaluation Toileting Ability Minimal Assistance Comments OT Toileting Comments Pt stood at toilet but therapist noticed significant amount of urine on floor. Pt unaware and did not wait for urine to be wiped up. Note urine on pt's bare feet causing significant slip and fall risk. Pt declined assistance for drying of feet or floor. OT ADL-Bathing Comments OT Bathing Comments to be assessed M5 OT- IP IADL's Start: 09/17/18 16:07 Freq: Status: Active Protocol: Document 09/17/18 14:38 PJM (Rec: 09/17/18 16:42 PJM [id number]) OT-Instrumental Activities of Daily Living Deficits IADL Deficits Identified Deficits Home Safety Awareness Awareness of Need for Assistance at Home Decreased Awareness Ability to Problem Solve Emergency Unable to Problem Solve Situations Medication Management Medication Management Comments Pt states he manages his own meds but could not name any of them or what they are for, except Warfarin. Money Management Money Management Comments Pt states he manages his own finances Meal Preparation Meal Preparation Caregiver Provides Assist Meal Preparation Comments Pt states he does his own cooking but note that family states he eats dinner every night at his cousin's and breakfast every night at his friend's house. Insurance Business Analyst Insurance Business Analyst Comments Family reports dirty and cluttered house. Note pt would be unable to clean up floor in bathroom after urinating on it today, Driving Driving Comments Pt still drives. M6 OT- IP Functional Cognition Start: 09/17/18 16:07 Freq: Status: Active Protocol: Document 09/17/18 14:38 PJM (Rec: 09/17/18 16:42 PJ [id number]) Cognitive Factors Limiting Selfcare Function Cognitive Ability Level of Alertness Alert Patient Orientation Name Month Date Year Place Attention Span Ability Capable of Focused Attention Ability to Follow Commands Able to Follow One Step Commands Memory Description Short Term Impaired Safety Awareness Underestimates Need for Assistance Problem Solving Ability Unable to Identify Errors Needs Assist to Identify Solutions Cognitive Comments Cognitive Assessment Comments Pt has decreased insight into current medical situation and significantly underestimates his abilities to functional safely alone in his home. Pt appears to have some short term memory deficits as he cannot recall home meds or purpose and RN has reviewed this x2 with him today. Pt appears to use gruffness to cover some deficits. Pt has poor awareness of potential fall risk from wet floor in bathroom and does not initiate appropriate hygiene after toileting. Family notes poor care of his home environment. OT- Vision and Hearing OT- Hearing Assessment OT- Hearing Assessment WFL OT- Vision Assessment Visual Acuity WFL Glasses For Reading Vision Assessment Comments Pt s/p B cataract sx. Can read wall clock without glasses. M7 OT- IP Mobility and Balance Start: 09/17/18 16:07 Freq: Status: Active Protocol: Document 09/17/18 14:38 PJM (Rec: 09/17/18 16:42 PJM [id number]) OT- Bed Mobility Assessment Rolling Type of Rolling Roll to Left Level of Assistance Standby Assistance Supine to Sit Supine to Sit Assist Standby Assistance Sit to Supine Sit to Supine Assist Standby Assistance Scooting Scooting to Edge of Bed Standby Assistance OT-Transfer Assessment Sit to and From Stand Sit to and from Stand Standby Assistance Transfers Transfer Ability Standby Assistance Technique Transfer Destination Bed Transfer Technique Stand Step Pivot Devices Transfer Assistive Devices Front Wheeled Walker Comments Mobility Comments pt adamantly declines gait belt or CGA for mobility; impulsivity noted OT- Gait Assessment Gait Gait Assistance Required: Standby Assistance Distance (Feet) 20 Assistive Devices Assistive Device Front Wheeled Walker Comments Gait Ability Comments pt moves quickly with decreased safety awareness OT- Balance Assessment Sitting Balance and Reactions Static Sitting Balance Ability Good Standing Balance and Reactions Static Standing Balance Ability Good Comments Other Balance Tests/Deviations/Treatment pt leans on wall when standing : to urinate M8 OT- IP Objective Assessments Start: 09/17/18 16:07 Freq: Status: Active Protocol: Document 09/17/18 14:38 PJM (Rec: 09/17/18 16:42 PJM [id number]) OT Gross Range of Motion Upper Extremity Range of Motion Assessment Within Functional Limits OT Strength Upper Extremity Strength Assessment Within Functional Limits OT- Coordination Assessment Comments Coordination Comments BUE appears WFL for self care OT-Muscle Tone Assessment Muscle Tone WNL Yes OT Sensation Assessment Comments Summary Comments pt reports occasional numbness in L index finger, none today Edema Edema Present Edema Comments Pt has generalized edema in BUE and especially BLE's R>L M9 OT- IP Assessment and Plan Start: 09/17/18 16:07 Freq: Status: Active Protocol: Document 09/17/18 14:38 PJM (Rec: 09/17/18 16:42 PJM [id number]) OT Summary Assessment and Plan Potential Rehabilitation Potential Fair Analytic Complexity at Evaluation Low Summary OT Impairments Strength Balance Functional Cognition Functional Mobility Grooming Dressing Toileting Bathing Toilet Transfers Shower Transfers Assessment Summary Low complexity OT assessment completed on this 77 yr old male admitted after fall 10 days prior to admit. Pt found to have supratherapeuitc INR on admit at 12.6 with large abdominal hematoma with intramuscular hematoma of R gluteus extending to iliac crest and R hip joint. Pt appears to have significantly decreased insight into current medical situation and significantly underestimates his abilities to functional safely alone in his home. Pt appears to have some short term memory deficits as he cannot recall home meds or purpose and RN has reviewed this x2 with him today. Pt appears to use gruffness to cover some deficits. Pt has poor awareness of potential fall risk from wet floor in bathroom and does not initiate appropriate hygiene after toileting. Family notes poor care of his home environment. Pt also has performance deficits in all functional mobility/transfers with significantly decreased activity tolerance due to R hip pain. He also has decreased independence in lower body dressing, bathing and toileting. Recommend SNF at discharge for further subacute rehab services and to further assess IADL skills and home safety. Will attempt cognitive screening here if pt willing to participate. Goals Self-Feeding Goal Adapted Ut[place]il Grooming Goal Standby Assistance Dressing Goal Standby Assistance Toileting Goal Standby Assistance Bathing Goal Standby Assistance Toilet Transfer Goal Standby Assistance Shower Transfer Goal Contact Guard Assistance Walk-in Shower Shower Chair Grab Bars Patient/Caregiver Education Goal Demonstrate Energy Conservation and Pacing OT-Other Goals Pt to complete cognitive screening test with good participation and effort. Days to Meet Goals 7 Frequency of Treatment Frequency Of Treatment Once a Day Treatment Plan OT Treatment Plan ADL Training Functional Cognition Training Functional Mobility Patient/Family Education Discharge Planning Discharge Recommendations OT Discharge Recommendations SNF Rehab Home Equipment Needs to be determined in next rehab setting
--- NOTE | 2018-09-17 14:40 | PT.IIE ---
Current Diagnoses Anemia in other chronic diseases classified elsewhere (09/16/18) Hypothyroidism, unspecified (09/16/18) Essential (primary) hypertension (09/16/18) Chronic atrial fibrillation (09/16/18) Heart failure, unspecified (09/16/18) Abnormal coagulation profile (09/16/18) Contusion of abdominal wall, initial encounter (09/16/18) Surgical History (Last Reviewed 09/16/18 @ 21:19 by TULIO Suazo) History of heart valve repair (Acute) Status post cardiac catheterization (12/25/07) Status post hernia repair Status post transurethral resection of prostate Medical History (Last Updated 09/16/18 @ 21:19 by TULIO Suazo) Atrial fibrillation (Acute) Cardiac valvular malformation (Acute) Congestive heart failure (Acute) Current use of group home anticoagulation (Acute) Hypertension (Acute) Hypothyroid (Acute) Pacemaker (Acute) Physical Therapy Inpatient Evaluation/Re-Eval M1 PT/OT-IP Prior Functional Status Start: 09/17/18 09:08 Freq: NEEDED Status: Active Protocol: Document 09/17/18 14:40 RS (Rec: 09/17/18 15:02 RS [id number]) Medical Review Prior Functional Status Medical History Reviewed Yes Diet/Fluid Consistency Regular Communication no known deficits Mobility and Gait mostly ind, occassional use of SPC, has recently been using a FWW after fall ~10 days ago, denies any other falls Activities of Daily Living and IADL's sits in tub for bathing Prior Functional Level (Other details) drives, eats dinner at his cousin's house nightly Social History Household Members none Living Arrangements House Number of Floors (Floors) One Floor Number of Stairs To Enter/Railing? ramped entry (portable ramp) Home Environment Tub/Shower Home Equipment Front Wheel Walker Straight Cane Grab Bars In Shower Employment Status Retired M3 PT-IP Subjective Start: 09/17/18 09:08 Freq: NEEDED Status: Active Protocol: Document 09/17/18 14:40 RS (Rec: 09/17/18 15:02 RS [id number]) Subjective Physical Therapy Visit Type Type Initial Evaluation Visit Start Time 14:15 Visit Stop Time 14:40 Total Visit Minutes 25 Physical Therapy Visit Comments Patient Comments Pt initially pleasant and answering questions without issue but quickly progressed to a little bit agitated and now wanting to answer questions, Get out of my way , Enough with the questions Patient Goals did not state Therapy Pain Assessment Pain When Pain Assessed During Mobility Pain Present Pain Present Pain Reported M4 PT-IP Mobility and Gait Start: 09/17/18 09:08 Freq: NEEDED Status: Active Protocol: Document 09/17/18 14:40 RS (Rec: 09/17/18 15:02 RS [id number]) PT-Bed Mobility Assessment Supine to Sit Supine to Sit Standby Assistance Head of Bed Elevated Bedrails Sit to Supine Sit to Supine Standby Assistance Head of Bed Elevated Bedrails Scooting Scooting to Edge of Bed Standby Assistance PT-Transfer Assessment Sit to and From Stand Sit to and from Stand Standby Assistance Equipment Transfer Assistive Device Front Wheeled Walker Transfers Transfer Destination Bed Transfer Technique walked Transfer Ability Level of Assist Standby Assistance Comments Mobility Comments Pt a little impulsive, but trying to make it to the bathroom quickly. Did not listen to cues or wait to allow a gait belt to be donned . When attempting to hold onto pt's gown as an alternative he asked to be let go. Gait Assessment Gait Gait Assistance Required: Standby Assistance Distance (Feet) 10 Assistive Devices Assistive Device Front Wheeled Walker Gait Deviations General Gait Pattern Decreased Stride Length Decreased Feet Clearance Wide Based Gait Comments Gait Comments Pt demonstrating unsafe behaviors while walking, pt made no effort to avoid or ask for help with a puddle in the bathroom, just walked right through it in bare feet. Pt was observably SOB after walking back to bed from toilet. Stair Climbing Assessment Comments Stair Climbing Comments not tested this session PT-Balance Assessment Sitting Balance and Reactions Static Sitting Balance Ability Good Dynamic Sitting Balance Ability Good Standing Balance and Reactions Static Standing Balance Ability Fair Dynamic Standing Balance Ability Fair Device Used FWW M5 PT-IP Objective Assessments Start: 09/17/18 09:08 Freq: NEEDED Status: Active Protocol: Document 09/17/18 14:40 RS (Rec: 09/17/18 15:02 RS [id number]) Gross Range of Motion Upper Extremity ROM Assessment Within Functional Limits Lower Extremity ROM Assessment Within Functional Limits Impairments except decreased bilat ankle DF d/t swelling Strength Comments Strength Comments BLE not formally assessed due to pt's need to get to bathroom quickly and then d/t growing agitation with continuing to participate in therapy session M6 PT-IP Treatment Start: 09/17/18 09:08 Freq: NEEDED Status: Active Protocol: Document 09/17/18 14:40 RS (Rec: 09/17/18 15:02 RS [id number]) Physical Therapy Treatment Education Education Provided Safety M7 PT-IP Assessment and Plan Start: 09/17/18 09:08 Freq: NEEDED Status: Active Protocol: Document 09/17/18 14:40 RS (Rec: 09/17/18 15:02 RS [id number]) PT Summary Assessment and Plan Potential Rehabilitation Potential Good Status of Condition at Evaluation Evolving Summary Impairments Pain Strength Balance Cognition Transfers Gait Activity Tolerance Assessment Summary Pt presents today with pain, likely pain-related weakness, and poor activity tolerance with SOB. Pt currently requiring use of FWW and 1 person assist for very short distances, which is below pt's reported functional baseline. Pt does have potential for functional improvement and will benefit from ongoing skilled PT. Recommend pt transition to SNF rehab once medically ready. Goals Bed Mobility Goal Standby Assistance Transfer Goal Standby Assistance Front Wheeled Walker Gait Goal Standby Assistance Front Wheel Walker Gait Distance 75 Days to Meet Goals 4 Frequency of Treatment Frequency Of Treatment Twice a Day Treatment Plan Physical Therapy Treatment Plan Bed Mobility Training Transfer Training Gait Training Therapeutic Exercise Balance Retraining Post Op Education Discharge Planning Hot or Cold Pack Neuromuscular Re-ed Coordination Retraining Manual Therapy Other Recommendations and Next Treatment bed mob from flat bed, Focus progress gait distance, monitor BP and SpO2 Recommendations To Nursing Amount of Assist Needed 1 Person Assist Discharge Recommendations PT Discharge Recommendations SNF Rehab Other Discharge Recommendations may progress to home pending length of acute stay, would need HHPT
[2018-09-18] MEDS: FUROSEMIDE 40 MG/4 ML VIAL IV ×3 (00:30→20:00)
[2018-09-18 03:28] VITALS: BP 125/74; PULSE 70; RESP 16; TEMP 36.3; O2SAT 95
[2018-09-18 05:33] LABS: INR 2.7 (0.9-1.3); Prothrombin Time 31.3 SECONDS (10.1-12.7)
[2018-09-18] MEDS: PANTOPRAZOLE 20 MG TABLET PO (06:02)
[2018-09-18] MEDS: LEVOTHYROXINE 50 MCG TABLET PO (06:42)
[2018-09-18 07:41] VITALS: BP 130/72; PULSE 68; RESP 18; TEMP 37.2; O2SAT 95
[2018-09-18] MEDS: CARVEDILOL 25 MG TABLET PO ×2 (09:06→20:00)
[2018-09-18] MEDS: SPIRONOLACTONE 25 MG TABLET 12.5 MG PO ×2 (09:06→20:01)
[2018-09-18] MEDS: THYROID, PORK 30 MG TABLET 45 MG PO (09:06)
[2018-09-18] MEDS: SODIUM CHLORIDE 0.9% FLUSH 10 ML IV ×2 (09:14→20:01)
--- NOTE | 2018-09-18 09:15 | P.PN_ITS ---
Subjective Date Patient Seen: 09/18/18 Interval history: MR. STEVENS IS A 77-YEAR-OLD GENTLEMAN WITH A HISTORY OF ATRIAL FIBRILLATION, PACEMAKER PLACEMENT, CHRONIC ANTICOAGULATION, CONGESTIVE HEART FAILURE WHO PRESENTED TO THE HOSPITAL WITH A SUPRATHERAPEUTIC INR. IN ADDITION THE PATIENT PRESENTED WITH ACUTE ON CHRONIC HEART FAILURE. HIS INR WAS 12. HE RECEIVED 4 FACTOR CONCENTRATE AND NOW HIS INR IS LESS THAN 3.0. THE PATIENT HAD BEEN TAKING COUMADIN AT HOME AND THIS HAD NOT BEEN REGULATED. HE FELL AND SUSTA INED A HEMATOMA TO THE LEFT GLUTEAL REGION. HE HAS NO FURTHER EVIDENCE OF BLEEDING. PATIENT DENIES ANY SHORTNESS OF BREATH. HE CONTINUES TO HAVE SIGNIFICANT BILATERAL LOWER EXTREMITY EDEMA. HE IS ANXIOUS TO AMBULATE. HIS DESIRE IS TO RETURN HOME. eCHO REVEALS THE FOLLOWING: There is mild concentric left ventricular hypertrophy. The left ventricle is normal in size. Left ventricular ejection fraction is estimated to be 50 +/- 5%. Left ventricular systolic function has significantly improved compared to the previous exam. Mild inferolateral hypokinesis and basal inferior hypokinesis The right ventricle is moderate to severely dilated. There is a pacemaker lead in the right ventricle. Right ventricular systolic function is moderately reduced. Both atria are severely dilated. The mitral valve has been surgically repaired and an annuloplasty ring sewn in place. The aortic valve is mildly calcified. There is mild aortic regurgitation. There is moderate tricuspid regurgitation. Right ventricular systolic pressure is estimated to be 25 mmHg plus the clinically estimated CVP which cannot be estimated on this exam. Exam Vital Signs (past 8 hours): - 09/18/18 03:28 09/18/18 07:41 Temperature 97.3 F L 98.9 F Pulse Rate 70 68 Respiratory Rate 16 18 Blood Pressure 125/74 130/72 Pulse Oximetry 95 95 Oxygen Delivery Method Room Air Oxygen Flow Rate 0 Narrative Exam Narrative: PLEASANT ELDERLY MALE WHO DOES NOT APPEAR SHORT OF BREATH LUNGS: DECREASED BREATH SOUNDS BILATERALLY CARDIAC EXAM: REGULAR RATE AND RHYTHM NORMAL S1 AND S2 WITH A 2/6 SYSTOLIC EJECTI ON MURMUR ABDOMEN: SOFT NONTENDER NONDISTENDED EXTREMITIES: 3 TO 4+ PITTING EDEMA BILATERALLY Objective Labs Result Diagrams: 09/17/18 05:00 09/17/18 05:00 Labs: Laboratory Results - last 24 hr 09/18/18 05:10 PT 31.3 H D INR 2.7 H Assessment & Plan (1) Gluteal pain: Problem details: the patient is a 77-year-old male who presented with a gluteal hematoma following a fall and a supratherapeutic INR, present on admission patient will continue to work with PT and OT. His INR has been improved with [facility]. Given his history of atrial fibrillation will resume low-dose Coumadin at 2.5 mg daily. Current visit: Yes Status: Acute (2) Acute blood loss anemia: Problem details: Acute blood loss anemia, present on admission. Suspect the patient has lost blood due to the fall and hematoma of the gluteal area. At this point will check iron studies. Will defer transfusion unless hemoglobin is less than 8 Current visit: Yes Status: Acute (3) CHF (congestive heart failure): Problem details: acute on chronic heart failure, secondary to diastolic dysfunction, present on admission will continue IV Lasix, will continue to follow laboratory studies Qualifiers: Heart failure chronicity: Heart failure type: other Qualified Code(s): I50.9 - Heart failure, unspecified Current visit: Yes Status: Acute (4) Presence of cardiac pacemaker: Current visit: No Status: None (5) Acquired hypothyroidism: Problem details: continue levothyroxine Current visit: No Status: None (6) Essential hypertension with goal blood pressure less than 140/90: Problem details: Continue Coreg. Lisinopril on hold. Will resume once blood pressure tolerates Current visit: No Status: None (7) Chronic atrial fibrillation: Problem details: Patient's rate is controlled. Will continue Coreg. Coumadin on hold but will resume shortly. Current visit: No Status: None (8) Paroxysmal atrial fibrillation: Current visit: Yes Status: Acute Assessment & Plan narrative: patient is ready for discharge home when he is able to ambulate safely independently. Quality VTE Deep Vein Thrombosis/Pulmonary Embolism Present on Admission: No
--- NOTE | 2018-09-18 10:55 | OT.IP.TRT ---
Current Diagnoses Acute posthemorrhagic anemia (09/16/18) Anemia in other chronic diseases classified elsewhere (09/16/18) Hypothyroidism, unspecified (09/16/18) Essential (primary) hypertension (09/16/18) Paroxysmal atrial fibrillation (09/16/18) Chronic atrial fibrillation (09/16/18) Heart failure, unspecified (09/16/18) Myalgia, other site (09/16/18) Abnormal coagulation profile (09/16/18) Contusion of abdominal wall, initial encounter (09/16/18) Presence of cardiac pacemaker (09/16/18) Occupational Therapy Treatment Note M2 OT-IP Current Condition Start: 09/17/18 16:07 Freq: Status: Active Protocol: Document 09/17/18 14:38 PJM (Rec: 09/17/18 16:42 PJM [id number]) Occupational Therapy Current Condition Current Condition Evaluation Date 09/17/18 Treatment Diagnosis decr'd self care,mobility s/p fall w/supratherapeuic INR, abd wall hematoma Diagnosis Onset Date 09/16/18 Post Operative Precautions Other Precautions large abdominal wall intramuscular hematoma of R gluteal muscle extending to R iliac bone and hip joint with extensive bruising of R hip/ flank area Weight Bearing Status Weight Bearing Status Weight Bear as Tolerated M3 OT- IP Subjective and Pain Start: 09/17/18 16:07 Freq: Status: Active Protocol: Document 09/18/18 10:55 PJM (Rec: 09/18/18 17:00 PJM [id number]) OT- Subjective Occupational Therapy Visit Type Type Treatment Note Visit Start Time 10:30 Visit Stop Time 10:55 Total Visit Minutes 25 Notes Pt agreeable to tx, cooperative throughout session . Pt c/o of feeling dizzy while long sitting in bed with BP 100/52 HR 65, short sitting edge of bed BP 94/54 HR 69, standing BP 92/59 HR 72. RN notified of results. Occupational Therapy Visit Comments Patient/Caregiver Goals to go home OT Pain Assessment Pain When Pain Assessed After Treatment Pain Present Pain Present Denied Pain Location Right Hip Scale Used no pain at rest in chair, but R hip discomfort with ambulation M4 OT- IP ADL's Start: 09/17/18 16:07 Freq: Status: Active Protocol: Document 09/18/18 10:55 PJM (Rec: 09/18/18 17:00 PJM [id number]) OT [id number] General Evaluation Self-Feeding Ability Independent OT ADL-Grooming General Evaluation Areas Needing Assistance Combing/Brushing Hair Comments OT Grooming Comments pt declined face washing, independent brushing hair with fair thoroughness OT ADL-Dressing General Eval Upper Body Dressing Ability Standby Assistance Lower Body Dressing Ability Minimal Assistance Areas Needing Assistance Underpants/Brief Socks Comments OT Dressing Comments Pt SBA to don and doff brief except CGA for balance while standing balance when pulling clothing on/off hips. Pt needs encouragement to change wet brief and declines any fazal care/cleaning after wet brief removed. Pt needed min asssit to don socks due to tight fit with significant RLE>LLE edema noted. OT ADL-Bathing Bathing Type Bathing Type Sponge Bath Comments OT Bathing Comments pt declined sponge bath M5 OT- IP IADL's Start: 09/17/18 16:07 Freq: Status: Active Protocol: Document 09/17/18 14:38 PJM (Rec: 09/17/18 16:42 PJM [id number]) OT-Instrumental Activities of Daily Living Deficits IADL Deficits Identified Deficits Home Safety Awareness Awareness of Need for Assistance at Home Decreased Awareness Ability to Problem Solve Emergency Unable to Problem Solve Situations Medication Management Medication Management Comments Pt states he manages his own meds but could not name any of them or what they are for, except Warfarin. Money Management Money Management Comments Pt states he manages his own finances Meal Preparation Meal Preparation Caregiver Provides Assist Meal Preparation Comments Pt states he does his own cooking but note that he eats dinner every night at his cousin's and breakfast every night at his friend's house. Science Intern Science Intern Comments Family reports dirty and cluttered house. Note pt would be unable to clean up floor in bathroom after urinating on it today, Driving Driving Comments Pt still drives. M6 OT- IP Functional Cognition Start: 09/17/18 16:07 Freq: Status: Active Protocol: Document 09/18/18 10:55 PJM (Rec: 09/18/18 17:00 PJM [id number]) Cognitive Factors Limiting Selfcare Function Cognitive Ability Level of Alertness Alert Attention Span Ability Capable of Focused Attention Ability to Follow Commands Able to Follow One Step Commands Memory Description Short Term Impaired Safety Awareness Decreased Recall of Precautions Underestimates Need for Assistance Problem Solving Ability Needs Assist to Identify Solutions Cognitive Comments Cognitive Assessment Comments Pt asking some repetitive questions about R hip hematoma during this session. Pt moves rapidly with decreased safety awareness and continues to move quickly even when cued to slow down to decrease dizziness. M7 OT- IP Mobility and Balance Start: 09/17/18 16:07 Freq: Status: Active Protocol: Document 09/18/18 10:55 PJM (Rec: 09/18/18 17:00 PJM [id number]) OT- Bed Mobility Assessment Rolling Level of Assistance Standby Assistance Supine to Sit Supine to Sit Assist Standby Assistance OT-Transfer Assessment Sit to and From Stand Sit to and from Stand Contact Guard Assistance Transfers Transfer Ability Contact Guard Assistance Technique Transfer Destination Chair Transfer Technique Stand Step Pivot Devices Transfer Assistive Devices Gait Belt Front Wheeled Walker Comments Mobility Comments Partial co tx with P.T. for safety at end of session due to c/o pt dizziness when up. OT- Gait Assessment Gait Gait Assistance Required: Contact Guard Assist Distance (Feet) 12 Assistive Devices Assistive Device Gait Belt Front Wheeled Walker Comments Gait Ability Comments Pt walked around bed to chair and left with P.T.A. present in room. OT- Balance Assessment Sitting Balance and Reactions Static Sitting Balance Ability Good Dynamic Sitting Balance Ability Good Standing Balance and Reactions Static Standing Balance Ability Good Dynamic Standing Balance Ability Fair M8 OT- IP Objective Assessments Start: 09/17/18 16:07 Freq: Status: Active Protocol: Document 09/17/18 14:38 PJM (Rec: 09/17/18 16:42 PJM [id number]) OT Gross Range of Motion Upper Extremity Range of Motion Assessment Within Functional Limits OT Strength Upper Extremity Strength Assessment Within Functional Limits OT- Coordination Assessment Comments Coordination Comments BUE appears WFL for self care OT-Muscle Tone Assessment Muscle Tone WNL Yes OT Sensation Assessment Comments Summary Comments pt reports occasional numbness in L index finger, none today Edema Edema Present Edema Comments Pt has generalized edema in BUE and especially BLE's R>L M9 OT- IP Assessment and Plan Start: 09/17/18 16:07 Freq: Status: Active Protocol: Document 09/18/18 10:55 PJM (Rec: 09/18/18 17:00 PJM [id number]) OT Summary Assessment and Plan Summary OT Impairments Pain Balance Functional Cognition Functional Mobility Grooming Dressing Toileting Bathing Toilet Transfers Shower Transfers Progress Towards Goals Slow Progress due to Medical Issues Assessment Summary Pt able to tolerate OOB activity today despite complaints of dizziness, especially with position changes. His BP is generally low but not orthostatic. Pt asking repetitive questions and does not consistently modify behaviors to improve safety despite verbal cues from therapist. Pt's BLE edema is decreasing his independence with lower body dressing. Pt declining personal hygiene tasks such as washing hands after urination and cleaning fazal area after removal of wet brief. Declines sponge bathing. Pt not safe to be home alone at this time due to decreased independence in basic self care and decreased insight into safety issues. Will complete cognitive screening tomorrow to further document suspected cognitive deficits that result in decreased self care (decreased personal hygiene) and home management. Family expressing concerns that pt's home is very cluttered and dirty. Goals Self-Feeding Goal Adapted Utensil Grooming Goal Standby Assistance Dressing Goal Standby Assistance Toileting Goal Standby Assistance Bathing Goal Standby Assistance Toilet Transfer Goal Standby Assistance Shower Transfer Goal Contact Guard Assistance Walk-in Shower Shower Chair Grab Bars Patient/Caregiver Education Goal Demonstrate Energy Conservation and Pacing OT-Other Goals Pt to complete cognitive screening test with good participation and effort. Days to Meet Goals 6 Frequency of Treatment Frequency Of Treatment Once a Day Treatment Plan OT Treatment Plan ADL Training Functional Cognition Training Functional Mobility Patient/Family Education Discharge Planning Discharge Recommendations OT Discharge Recommendations SNF Rehab Other Discharge Recommendations vs home with assist during waking hours Home Equipment Needs to be determined
[2018-09-18 11:15] VITALS: BP 101/53; PULSE 70; RESP 18; TEMP 37.4; O2SAT 95
--- NOTE | 2018-09-18 12:44 | PT.IPTN ---
Current Diagnoses Acute posthemorrhagic anemia (09/16/18) Anemia in other chronic diseases classified elsewhere (09/16/18) Hypothyroidism, unspecified (09/16/18) Essential (primary) hypertension (09/16/18) Paroxysmal atrial fibrillation (09/16/18) Chronic atrial fibrillation (09/16/18) Heart failure, unspecified (09/16/18) Myalgia, other site (09/16/18) Abnormal coagulation profile (09/16/18) Contusion of abdominal wall, initial encounter (09/16/18) Presence of cardiac pacemaker (09/16/18) Physical Therapy Treatment Note M2 PT-IP Current Condition Start: 09/17/18 09:08 Freq: NEEDED Status: Active Protocol: Document 09/17/18 14:40 RS (Rec: 09/17/18 15:03 RS [id number]) Physical Therapy Current Condition Current Condition Evaluation Date 09/17/18 Treatment Diagnosis weak, SOB, s/p GLF Onset Date fell ~10 days ago M3 PT-IP Subjective Start: 09/17/18 09:08 Freq: NEEDED Status: Active Protocol: Document 09/18/18 12:34 SA (Rec: 09/18/18 12:44 SA [id number]) Subjective Physical Therapy Visit Type Type Treatment Note Visit Start Time 10:50 Visit Stop Time 11:15 Total Visit Minutes 25 Notes Pt finishing up with OT, agreeable to PT. Physical Therapy Visit Comments Patient Comments Pt reports mild pain in R hip/ buttock but states he feels much better than yesterday. Therapy Pain Assessment Pain When Pain Assessed During Mobility Pain Present Pain Present Pain Reported Location Right Hip Intensity 1 Scale Used Numeric (1 - 10) M4 PT-IP Mobility and Gait Start: 09/17/18 09:08 Freq: NEEDED Status: Active Protocol: Document 09/18/18 12:34 SA (Rec: 09/18/18 12:44 SA [id number]) PT-Transfer Assessment Sit to and From Stand Sit to and from Stand Standby Assistance Use of Upper Extremities Equipment Transfer Assistive Device Front Wheeled Walker Transfers Transfer Destination Chair Transfer Technique Stand Step Pivot Transfer Ability Level of Assist Standby Assistance Comments Mobility Comments BP at start of session 92/49. SBA with transfers and cues for safety and pacing. FWW adjusted for proper fit and does not need extenders. Gait Assessment Gait Gait Assistance Required: Contact Guard Assist Distance (Feet) 25 Assistive Devices Assistive Device Gait Belt Front Wheeled Walker Gait Deviations General Gait Pattern Decreased Stride Length Decreased Feet Clearance Wide Based Gait Factors Limiting Gait Function Factors Limiting Gait Function Decreased Activity Tolerance Decreased Strength Comments Gait Comments BP up to 101/53 after activity . Short walks in room 15 + 10 + 12 feet with seated rests between and cues for safety. pt moves quickly and is a bit impulsive but receptive to cues for safety. M5 PT-IP Objective Assessments Start: 09/17/18 09:08 Freq: NEEDED Status: Active Protocol: Document 09/17/18 14:40 RS (Rec: 09/17/18 15:02 RS [id number]) Gross Range of Motion Upper Extremity ROM Assessment Within Functional Limits Lower Extremity ROM Assessment Within Functional Limits Impairments except decreased bilat ankle DF d/t swelling Strength Comments Strength Comments BLE not formally assessed due to pt's need to get to bathroom quickly and then d/t growing agitation with continuing to participate in therapy session M6 PT-IP Treatment Start: 09/17/18 09:08 Freq: NEEDED Status: Active Protocol: Document 09/18/18 12:34 SA (Rec: 09/18/18 12:44 [id number]) Physical Therapy Treatment Exercises Exercises Ankle Pumps Seated Knee Flexion/Extension Education Education Provided Safety Other Treatments Other Treatment Performed Standing heel raises and lateral weiht shifts with no UE support. No LOB or c/o pain . M7 PT-IP Assessment and Plan Start: 09/17/18 09:08 Freq: NEEDED Status: Active Protocol: Document 09/18/18 12:34 (Rec: 09/18/18 12:44 [id number]) PT Summary Assessment and Plan Summary Assessment Summary pain today and improved mobility. Education for safety and use of FWW, adjustment made for proper fit . Pt tends to walk with forward flexed posture and needs cues to correct. Frequency of Treatment Frequency Of Treatment Twice a Day Recommendations To Nursing Amount of Assist Needed 1 Person Assist Discharge Recommendations PT Discharge Recommendations SNF Rehab
--- NOTE | 2018-09-18 13:16 | PC.NURSE ---
Day Shift- Pt disoriented to year, states 2000, cooperative with care, follows direction in bed. Call light within reach, pt demonstrates how to use properly. OOB with PT/OT today. High fall risk precautions in place. Bed alarm on. Pt reports 2/10 pain to right groin/hip area, from falling. No prn's needed at this time. O2 sat 98% on RA while resting, states has non-distressing shortness of breath when OOB ambulating. LLL lung field has fine crackles upon auscultation. Pt voiding qs in urinal indep. RLE edema 3+ pitting more than LLE. LLE foot edema less compared to yesterday assessment. Skin intact. Has large amount of purple bruising to lower back, across abd, right groin/hip, out and back upper leg and outer lower leg. No voiced concerns.
--- NOTE | 2018-09-18 14:44 | PT.IPTN ---
Current Diagnoses Acute posthemorrhagic anemia (09/16/18) Anemia in other chronic diseases classified elsewhere (09/16/18) Hypothyroidism, unspecified (09/16/18) Essential (primary) hypertension (09/16/18) Paroxysmal atrial fibrillation (09/16/18) Chronic atrial fibrillation (09/16/18) Heart failure, unspecified (09/16/18) Myalgia, other site (09/16/18) Abnormal coagulation profile (09/16/18) Contusion of abdominal wall, initial encounter (09/16/18) Presence of cardiac pacemaker (09/16/18) Physical Therapy Treatment Note M2 PT-IP Current Condition Start: 09/17/18 09:08 Freq: NEEDED Status: Active Protocol: Document 09/17/18 14:40 RS (Rec: 09/17/18 15:03 RS [id number]) Physical Therapy Current Condition Current Condition Evaluation Date 09/17/18 Treatment Diagnosis weak, SOB, s/p GLF Onset Date fell ~10 days ago M3 PT-IP Subjective Start: 09/17/18 09:08 Freq: NEEDED Status: Active Protocol: Document 09/18/18 14:34 SA (Rec: 09/18/18 14:44 SA [id number]) Subjective Physical Therapy Visit Type Type Treatment Note Visit Start Time 14:07 Visit Stop Time 14:30 Total Visit Minutes 23 Physical Therapy Visit Comments Patient Comments Pt in bed and agreeable to PT. Patient Goals [facility] Therapy Pain Assessment Pain When Pain Assessed During Mobility Pain Present Pain Present Pain Reported Location Right Hip Intensity 1 Scale Used Numeric (1 - 10) M4 PT-IP Mobility and Gait Start: 09/17/18 09:08 Freq: NEEDED Status: Active Protocol: Document 09/18/18 14:34 SA (Rec: 09/18/18 14:44 [id number]) PT-Bed Mobility Assessment Rolling Type of Rolling Roll to Left Level of Assist Standby Assistance Supine to Sit Supine to Sit Standby Assistance Head of Bed Elevated Bedrails Sit to Supine Sit to Supine Standby Assistance Head of Bed Elevated Bedrails Scooting Scooting to Edge of Bed Standby Assistance Scooting Up and Down in Bed Standby Assistance PT-Transfer Assessment Sit to and From Stand Sit to and from Stand Standby Assistance Use of Upper Extremities Equipment Transfer Assistive Device Front Wheeled Walker Transfers Transfer Destination Chair Transfer Technique Stand Step Pivot Transfer Ability Level of Assist Standby Assistance Comments Mobility Comments BP 106/61 in supine at start of session. Pt has some mild c /o dizziness with mobility. SBA with all mobility tasks and continued cues for safety and pacing. Gait Assessment Gait Gait Assistance Required: Contact Guard Assist Distance (Feet) 30 Assistive Devices Assistive Device Gait Belt Front Wheeled Walker Orthotic/Prosthetic Devices or Brace: No Gait Deviations General Gait Pattern Decreased Stride Length Decreased Feet Clearance Wide Based Gait Factors Limiting Gait Function Factors Limiting Gait Function Decreased Activity Tolerance Decreased Strength Comments Gait Comments BP 92/57 after short walk. Gait training with FWW and CGA for about 25 feet with forward flexed posture that pt is able to correct with cues. Pt fatigues rapidly, appears SOB but 02 sats 98% Stair Climbing Assessment Comments Stair Climbing Comments declined, does not have stairs to enter home PT-Balance Assessment Sitting Balance and Reactions Static Sitting Balance Ability Good Dynamic Sitting Balance Ability Good Comments Other Balance Tests/Deviations/Treatment Standing balance tasks, : postural correction completed at EOB prior to walking. Functional Assessments Functional Tests Timed Up and Go 17 seconds- High fall risk for age M5 PT-IP Objective Assessments Start: 09/17/18 09:08 Freq: NEEDED Status: Active Protocol: Document 09/17/18 14:40 RS (Rec: 09/17/18 15:02 RS [id number]) Gross Range of Motion Upper Extremity ROM Assessment Within Functional Limits Lower Extremity ROM Assessment Within Functional Limits Impairments except decreased bilat ankle DF d/t swelling Strength Comments Strength Comments BLE not formally assessed due to pt's need to get to bathroom quickly and then d/t growing agitation with continuing to participate in therapy session M6 PT-IP Treatment Start: 09/17/18 09:08 Freq: NEEDED Status: Active Protocol: Document 09/18/18 14:34 SA (Rec: 09/18/18 14:44 SA [id number]) Physical Therapy Treatment Exercises Exercises Ankle Pumps Seated Knee Flexion/Extension Education Education Provided Safety M7 PT-IP Assessment and Plan Start: 09/17/18 09:08 Freq: NEEDED Status: Active Protocol: Document 09/18/18 14:34 SA (Rec: 09/18/18 14:44 [id number]) PT Summary Assessment and Plan Summary Assessment Summary Pt reports decreased pain on R side, fatigues rapidly and is impulsive. Needs cues for safe mobility. Frequency of Treatment Frequency Of Treatment Twice a Day Recommendations To Nursing Amount of Assist Needed 1 Person Assist Discharge Recommendations PT Discharge Recommendations Home with 24/ Assist SNF Rehab Other Discharge Recommendations Pt unsafe at times with mobility demonstrating poor judgment. Pt vague about how much help he has at home, stating he has friends and family near by but not specific with answers to questions. Lives alone. Recommend pt have supervision at home as he is a high fall risk.
[2018-09-18 15:44] VITALS: BP 106/68; PULSE 70; RESP 18; TEMP 36.9; O2SAT 98
[2018-09-18] MEDS: WARFARIN 2.5 MG TABLET PO (17:29)
[2018-09-18 20:00] VITALS: BP 119/69; PULSE 70; RESP 20; TEMP 36.8; O2SAT 97
[2018-09-19] VITALS: BP 104/64; PULSE 75; RESP 20; TEMP 36.6; O2SAT 99
[2018-09-19 04:00] VITALS: BP 122/73; PULSE 72; RESP 18; TEMP 36.6; O2SAT 98
[2018-09-19] MEDS: PANTOPRAZOLE 20 MG TABLET PO (05:32)
[2018-09-19 06:08] LABS: Add Manual Diff / Slide Review NO; Basophils Absolute Auto 100 /uL (0-100); Basophils Percent Auto 0.7 % (0-2); Eosinophils Absolute Auto 100 /uL (0-450); Eosinophils Percent Auto 1.5 % (2-4); Hematocrit 28.6 % (41-53); Hemoglobin 9.7 g/dL (13.5-17.5); Lymphocytes Absolute Auto 1300 /uL (1100-4500); Lymphocytes Percent Auto 16.1 % (25-40); Mean Corpuscular HGB Conc 33.8 % (30-36); Mean Corpuscular Hemoglobin 32.5 PG (26-34); Mean Corpuscular Volume 96.2 fL (80-100); Monocytes Absolute Auto 900 /uL (0-900); Monocytes Percent Auto 11.4 % (3-14); Neutrophils Absolute Auto 5600 /uL (1500-7000); Neutrophils Percent Auto 70.3 % (50-75); Platelet Count 202 X10^3/uL (150-400); Red Blood Cell Count 2.97 X10^6/uL (4.5-5.9); Red Cell Distribution Width 17.6 % (11.6-14.8)
[2018-09-19 06:31] LABS: INR 3.1 (0.9-1.3); Prothrombin Time 36.5 SECONDS (10.1-12.7)
[2018-09-19 06:36] LABS: BUN Creatinine Ratio 23.8 (6-22); Blood Urea Nitrogen 38 mg/dL (9-20); Calcium 8.5 mg/dL (8.4-10.2); Carbon Dioxide 32 mmol/L (22-32); Chloride 93 mmol/L (98-107); Estimated Glomerular Filt Rate 41.9 mL/min (>60); Glucose 88 mg/dL (80-110); HEMOLYSIS < 15 (0-50); Potassium 3.7 mmol/L (3.4-5.1); Sodium 133 mmol/L (137-145)
[2018-09-19] MEDS: LEVOTHYROXINE 50 MCG TABLET PO (06:48)
[2018-09-19 08:00] VITALS: BP 117/70; PULSE 67; RESP 18; TEMP 37.1; O2SAT 94
[2018-09-19] MEDS: SODIUM CHLORIDE 0.9% FLUSH 10 ML IV (08:04)
[2018-09-19] MEDS: FUROSEMIDE 40 MG/4 ML VIAL IV (08:04)
[2018-09-19] MEDS: SPIRONOLACTONE 25 MG TABLET 12.5 MG PO (08:11)
[2018-09-19] MEDS: DOCUSATE 100 MG CAPSULE PO (08:11)
[2018-09-19] MEDS: CARVEDILOL 25 MG TABLET PO (08:12)
[2018-09-19] MEDS: THYROID, PORK 30 MG TABLET 45 MG PO (08:12)
--- NOTE | 2018-09-19 10:50 | OT.IP.TRT ---
Current Diagnoses Acute posthemorrhagic anemia (09/16/18) Anemia in other chronic diseases classified elsewhere (09/16/18) Hypothyroidism, unspecified (09/16/18) Essential (primary) hypertension (09/16/18) Paroxysmal atrial fibrillation (09/16/18) Chronic atrial fibrillation (09/16/18) Heart failure, unspecified (09/16/18) Myalgia, other site (09/16/18) Abnormal coagulation profile (09/16/18) Contusion of abdominal wall, initial encounter (09/16/18) Presence of cardiac pacemaker (09/16/18) Occupational Therapy Treatment Note M3 OT- IP Subjective and Pain Start: 09/17/18 16:07 Freq: Status: Active Protocol: Document 09/19/18 10:50 PJM (Rec: 09/19/18 17:45 PJM [id number]) OT- Subjective Occupational Therapy Visit Type Type Treatment Note Visit Start Time 09:33 Visit Stop Time 10:50 Total Visit Minutes 77 Notes Pt awake and alert in bed; agreeable to tx. BP improved today to 118/59 and stable this session with no c/o dizziness from pt. Occupational Therapy Visit Comments Patient Comments I want to make my own decisions about where I go and how I do things. Patient/Caregiver Goals to go home and see his dog OT Pain Assessment Pain When Pain Assessed After Treatment Pain Present Pain Present Denied Pain M4 OT- IP ADL's Start: 09/17/18 16:07 Freq: Status: Active Protocol: Document 09/19/18 10:50 PJM (Rec: 09/19/18 17:45 PJM [id number]) OT ADL-Grooming Comments OT Grooming Comments pt declines to go to sink for grooming OT ADL-Oral Care Comments Oral Care Comments pt declines oral care OT ADL-Dressing General Eval Lower Body Dressing Ability Independent Areas Needing Assistance Underpants/Brief Socks Shoes Comments OT Dressing Comments Pt independent donning his own socks and shoes with orthotics today while seated EOB. OT ADL-Toileting General Evaluation Toileting Ability Independent Areas Needing Assistance Manage Clothing Comments OT Toileting Comments poor perineal hygiene noted. Pt does not wash hands after toileting, declines hand hall clerk. OT ADL-Bathing Comments OT Bathing Comments pt declines to shower here M5 OT- IP IADL's Start: 09/17/18 16:07 Freq: Status: Active Protocol: Document 09/19/18 10:50 PJM (Rec: 09/19/18 17:45 PJ [id number]) OT-Instrumental Activities of Daily Living Deficits IADL Deficits Identified Deficits Home Safety Awareness Awareness of Need for Assistance at Home Decreased Awareness Medication Management Medication Management Comments Recommend supervision for all medication management due to decreased memory and cognitive deficits. Money Management Money Management Comments Recommend supervision for financial reporting accountant due to decreased memory and cognitive deficits. Meal Preparation Meal Preparation Comments Memory deficits may cause safety issues during use of stove or oven. Pt does not do much hot meal preparation per his cousin. He frequently picks up deli meals at grocery store, eats dinner at cousin' s house, and breakfast at a friend's house. General Machinist General Machinist Comments Per cousin, pt's house is cluttered and dirty. Recommend housekeeping assist to decrease fall risk. Driving Driving Comments Results of cognitive assessment raise significant concern about driving safety. See details below. Discussed these concerns with pt, his cousin (with pt's permission), case preparer and liner and MD. Recommend pt NOT drive at this time due to slow speed of processing, decreased visual scanning speed and memory deficits. M6 OT- IP Functional Cognition Start: 09/17/18 16:07 Freq: Status: Active Protocol: Document 09/19/18 10:50 PJM (Rec: 09/19/18 17:45 PJ [id number]) Cognitive Factors Limiting Selfcare Function Cognitive Ability Level of Alertness Alert Patient Orientation Name Age Birthday Month Date Year Place Situation Attention Span Ability Capable of Focused Attention Capable of Sustained Attention Ability to Follow Commands Able to Follow One Step Commands Memory Description Immediate Impaired Short Term Impaired Safety Awareness Decreased Recall of Precautions Decreased Ability to Apply Precautions Underestimates Need for Assistance Problem Solving Ability Unable to Identify Errors Executive Function Ability Unable to Integrate Past Experience With Present Action Abstract Thinking Ability Unable to Draw Logical Conclusions Unable to Be Adaptable in Thinking Cognitive Tests SLUMS Pt scored 19/30 (norm is 27/30). Pt had difficulty with immediate, short term and working memory. He recalls 2/5 words after 5 min delay and recalls 3/4 facts about short paragraph read to him. He has slow word generation and decreased mental math skills. He demonstrates omissions and decreased attention to detail when placing numbers on clock drawing. Cognitive Comments Cognitive Assessment Comments Administered Trailmaking A/B test. Pt completed Trails A in 172 sec (Normal is less than 39 sec, and > 42 sec is significant and severe impairment). Pt completed Trails B in 332 sec (Normal is <85 sec, and > 121 sec is significant and severe impairment). Pt need more than 8 verbal cues to complete sequence of task and multiple repetitions of instructions for task. Per AMA guidelines, persons taking longer than 180 sec on Trails B are at a higher risk of auto accident in the upcoming year . Pt's visual scanning speed is very slow and divided attention is poor. All of these factors raise concerns about driving safety. 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 M7 OT- IP Mobility and Balance Start: 09/17/18 16:07 Freq: Status: Active Protocol: Document 09/19/18 10:50 PJM (Rec: 09/19/18 17:45 PJM [id number]) OT- Bed Mobility Assessment Rolling Type of Rolling Roll to Left Level of Assistance Independent Supine to Sit Supine to Sit Assist Independent Sit to Supine Sit to Supine Assist Independent Scooting Scooting to Edge of Bed Independent OT-Transfer Assessment Sit to and From Stand Sit to and from Stand Independent Transfers Transfer Ability Standby Assistance Technique Transfer Destination Chair Toilet Devices Transfer Assistive Devices Front Wheeled Walker Comments Mobility Comments pt declines gait belt; moves very quickly, frequently kicking back leg of FWW with his R foot. OT- Gait Assessment Gait Gait Assistance Required: Standby Assistance Distance (Feet) 35 Assistive Devices Assistive Device Front Wheeled Walker Comments Gait Ability Comments no loss of balance noted but impulsive M9 OT- IP Assessment and Plan Start: 09/17/18 16:07 Freq: Status: Active Protocol: Document 09/19/18 10:50 PJM (Rec: 09/19/18 17:45 PJM [id number]) OT Summary Assessment and Plan Summary Assessment Summary Pt presents with significant cognitive deficits as described above that raise concerns about home safety in areas of medication management , financial reporting accountant, hot meal preparation and driving. Discussed these concerns in depth with pt, and his cousin who is pt's primary social support (with pt's permission). Pt also demonstrates significant impulsivity which increases his fall risk. He does not modify his behavior in response to verbal cues from therapist. Pt not receptive to making any changes in his home situation stating I want to make my own decisions about where I go and how I do things. Also discussed with case preparer and liner and MD. Did recommend HH services to pt and he did not actually refuse them but suspect he will not follow through with this. Will d/c OT services at this time as pt not receptive to suggestions to improve safety at home. Discharge Recommendations OT Discharge Recommendations Home with Assistance Home Health Other Discharge Recommendations supervision for all medication management, financial reporting accountant, hot meal preparation and NO driving.
--- NOTE | 2018-09-19 12:10 | PT.IPTN ---
Current Diagnoses Acute posthemorrhagic anemia (09/16/18) Anemia in other chronic diseases classified elsewhere (09/16/18) Hypothyroidism, unspecified (09/16/18) Essential (primary) hypertension (09/16/18) Paroxysmal atrial fibrillation (09/16/18) Chronic atrial fibrillation (09/16/18) Heart failure, unspecified (09/16/18) Myalgia, other site (09/16/18) Abnormal coagulation profile (09/16/18) Contusion of abdominal wall, initial encounter (09/16/18) Presence of cardiac pacemaker (09/16/18) Physical Therapy Treatment Note M2 PT-IP Current Condition Start: 09/17/18 09:08 Freq: NEEDED Status: Active Protocol: Document 09/17/18 14:40 RS (Rec: 09/17/18 15:03 RS [id number]) Physical Therapy Current Condition Current Condition Evaluation Date 09/17/18 Treatment Diagnosis weak, SOB, s/p GLF Onset Date fell ~10 days ago M3 PT-IP Subjective Start: 09/17/18 09:08 Freq: NEEDED Status: Active Protocol: Document 09/19/18 12:08 CLB (Rec: 09/19/18 12:10 CLB [id number]) Subjective Physical Therapy Visit Type Type Patient Refusal Notes Pt refused gait and stair training stating he can walk by himself.
--- NOTE | 2018-09-19 12:35 | PM.DS.1 ---
History of Present Illness Date Patient Seen: 09/16/18 Chief complaint: states pubic area is all black,legs swelling Narrative: Written by Shimon ANTUNEZ: This is a 77-year-old gentleman with a history congestive failure, atrial fibrillation, ventricular pacemaker, hypertension and hypothyroidism who presents to the hospital today with complaints of abdominal pain, right hip pain with bruising over right hip in abdomen and leg swelling. The patient was in his usual state health which is active and independent when he took a fall 10 days ago that was a nonsyncopal ground level trip and fall landing on his right hip. He has been anticoagulated on warfarin. The patient reports on his last INR was 3.1 and received no call back for dosage adjustment or instructions, he indicates that was a couple months ago and he has not had INR testing since. He states since the fall he has had pain with ambulation and developed progressive leg swelling with increasing pain in the right ankle. He has been using a walker to ambulate and at baseline has needed no assistive devices. Additionally, the patient was seen approximately 10 days ago at [facility] by Cardiology or the patient had spirolactone added to his medication regimen. The patient is no complaints of headaches or dizziness, has no changes in hearing or vision and is status post cataract surgery bilaterally. Denies neck or back pain. He denies chest pain or palpitations and does have a left anterior chest pacemaker. Reports no shortness of breath, exertional dyspnea or cough. He has had no nausea vomiting and has tenderness the lower abdominal wall with presence of ecchymosis extending laterally into the right buttock. Reports difficulty ambulating related to pain. Since his fall is had developed marked swelling in the lower extremities which reports as new though he has been on diuretic therapy. The patient arrived in the ER at 2:37 p.m. at that time he was found to be afebrile at 97.5, have a heart rate 69, blood pressure of 102/66, respiratory rate of 13 with a saturation of 96% on room air. In the ER the patient had a chest x-ray taken which showed a small left pleural effusion/thickening with left atelectasis and enlarged heart. A CT scan of the abdomen was done with the radiologist interpretation of: a large intramuscular hematoma of the right gluteus muscle adjacent to the iliac bone and right hip without bony fracture, nodular thickening of left adrenal which may represent aunt adrenal adenoma. On lab work the patient was found to have INR supratherapeutic at 12.6. His CBC reveals a white count of 9.8 with a left shift, hemoglobin of 9.8 and hematocrit 28.9 and platelets of 183. His electrolytes are within normal range he has a BUN of 33 and creatinine 1.5. His LFTs are within normal range with an elevated bilirubin of 3.8 He has a negative troponin at 0.025 and elevated total CK at 178 with a normal CK-MB at 1.92 and a low index of 1.1. He has a BNP of 445. In the ER patient additionally had EKG completed, received vitamin K 5 mg and 60 mg of Lasix. The patient is admitted for supratherapeutic INR associated bleeding in the form of a large gluteal hematoma. Discharge Providers Date of admission: 09/16/18 17:02 Discharge Date: 09/19/18 Primary care physician: Diego Gillespie MD Consults: 09/16/18 19:44 Consult to Dietitian, Adult Routine Comment: Reason For Exam: supratherapeutic INR, on warfarin 09/16/18 19:46 Consult to Discharge Planning Routine Comment: Consult to Occupational Therapy Evaluate & Treat Comment: large gluteal hematoma r/t supratherapeutic INR Physician Instructions: Evaluate and treat Consult to Physical Therapy Evaluate & Treat Comment: large gluteal hematoma r/t supratherapeutic INR Physician Instructions: Evaluate and Treat Discharge provider: Alicia Caputo DO Summary Discharge Diagnosis: 1. Gluteal pain, present on admission. Resolving. 2. Acute blood loss anemia, present on admission. Stable. 3. Acute on chronic heart failure, secondary to diastolic dysfunction, present on admission. Resolving. 4. History of cardiac pacemaker. 5. Hypothyroidism, chronic, present on admission. Stable. 6. Essential hypertension, chronic, present on admission. Stable. 7. Chronic atrial fibrillation, chronic, present on admission. Stable. 8. Chronic kidney disease stage 2, present on admission. Stable. 9. Mild dementia, chronic, present on admission. Stable. Hospital Course: 1. Gluteal pain, present on admission. Resolving. -Presented with a gluteal hematoma following a fall and a supratherapeutic INR. -Continued to work with PT and OT. INR improved with [facility]. Given his history of atrial fibrillation, resumed low-dose Coumadin at 2.5 mg daily with close follow-up at walk-in [facility] for INR check on Saturday 09/23 and follow-up appointment with Dr. Aleyda Whaley on 09/24. 2. Acute blood loss anemia, present on admission. Stable. -Secondary to fall with hematoma of the gluteal area. -Iron studies not performed and recommended outpatient. -Hemoglobin hematocrit stable and trending up. No further signs of bleeding. Transfusion goal hemoglobin less than 9.0. 3. Acute on chronic heart failure, secondary to diastolic dysfunction, present on admission. Resolving. -Patient presented with shortness of breath possibly secondary to acute blood loss anemia versus CHF exacerbation with recent furosemide dose change by computer forensics technician at . Patient has dependent edema to hips bilaterally that has improved markedly. Weight change: max 112 kg down to 105 kg at time of discharge and approx net -7L. -Continued Lasix 40 mg IV twice daily and discharged with increased dose of furosemide from 40 mg daily to 60 mg daily. May need to continue to be adjusted per computer forensics technician or PCP that he establishes with. -Continued carvedilol 25 mg twice daily and held lisinopril. Discharged on decreased dose of lisinopril 5 mg daily due to low normal BP with increased dose of Lasix and will need to be addressed at his hospital follow-up. 4. History of cardiac pacemaker. -Patient is currently paced. 5. Hypothyroidism, chronic, present on admission. Stable. -TSH 2.71. Free T4 1.59. -Continued home levothyroxine 50 mcg daily. 6. Essential hypertension, chronic, present on admission. Stable. -Goal blood pressure less than 140/90. -Continued carvedilol 25 mg twice daily and held lisinopril. Discharged on decreased dose of lisinopril 5 mg daily due to low normal BP with increased dose of lasix and will need to be addressed at his hospital follow-up. Blood pressure well controlled. 7. Chronic atrial fibrillation, chronic, present on admission. Stable. -Patient's rate is paced and controlled. Continued home carvedilol 25 mg twice daily. Coumadin was initially held but restarted at 2.5 mg daily at bedtime which is half his normal dose. Instructed patient to have INR checked at walk-in Clinic on Sunday and follow up with Dr. Aleyda Whaley on Sunday09/24/2018. 8. Chronic kidney disease stage 2, present on admission. Stable. -Unknown baseline creatinine. Initial creatinine 1.5. -Avoided nephrotoxic agents other than furosemide as above. -Recheck BMP in 1 week at hospital follow-up. 9. Mild dementia, chronic, present on admission. Stable. -Ordered speech therapy evaluation for SLUMS with score of +19/20 indicative of mild dementia (likely vascular). -Patient is still competent to make decisions. Highly recommend he DOES NOT drive at all. Status at Discharge Functional status at discharge: uses cane/walker Overall status at discharge: patient is progressing back to baseline Exam Vital Signs (past 8 hours): - 09/19/18 08:00 Temperature 98.7 F Pulse Rate 67 Respiratory Rate 18 Blood Pressure 117/70 Pulse Oximetry 94 Oxygen Delivery Method Room Air Oxygen Flow Rate 0 Narrative Exam Narrative: General: Elderly gentleman sitting in bed and in no acute distress, well-developed, well-nourished, appropriately interactive. HEENT: Normocephalic, atraumatic. External ears without defect. Pupils equal, round, and reactive to light. Anicteric sclerae, moist conjunctivae, and no lid lag. Neck: Supple with full range of motion. No lymphadenopathy or thyromegaly. Cardiovascular: Regular rate and rhythm without murmurs, rubs, or gallops appreciated. Pulmonary: Clear to auscultation bilaterally without crackles, wheezes, or rhonchi. Normal respiratory effort with no use of accessory muscles. Abdomen: Soft, bowel sounds present, nontender, nondistended. No hepatosplenomegaly or masses appreciated. Extremities: No clubbing or cyanosis. Dependent edema to hips bilaterally, improved. Large hematoma over low right gluteus, nontender and stable. Skin: Normal temperature, turgor, and texture; no rash, ulcers, or subcutaneous nodules appreciated. Neurological: Cranial nerves grossly intact. Psychiatric: Normal mood and affect. Alert and oriented to person, place, and time. Poor insight. Objective Labs Result Diagrams: 09/19/18 05:29 09/19/18 05:29 Labs: Laboratory Results - last 24 hr 09/19/18 09/19/18 09/19/18 05:29 05:29 05:29 WBC 8.0 RBC 2.97 L Hgb 9.7 L Hct 28.6 L MCV 96.2 MCH 32.5 MCHC 33.8 RDW 17.6 H Plt Count 202 Neut % (Auto) 70.3 Lymph % (Auto) 16.1 L [place] % (Auto) 11.4 Eos % (Auto) 1.5 L Baso % (Auto) 0.7 Neut # (Auto) 5600 Lymph # (Auto) 1300 [place] # (Auto) 900 Eos # (Auto) 100 Baso # (Auto) 100 PT 36.5 H D INR 3.1 H Sodium 133 L Potassium 3.7 Chloride 93 L Carbon Dioxide 32 BUN 38 H Creatinine 1.60 H Estimated GFR 41.9 L BUN/Creatinine Ratio 23.8 H Glucose 88 Calcium 8.5 Discharge Plan Discharge Plan Patient Disposition: Home Discharge comment: You are being discharged home. A fpc facility for rehabilitation or home health was highly recommended but you kindly declined. You are high risk of bleeding and should you fall again. Please follow-up with the physical therapist outpatient 2-3 times per week at the very least. DO NOT drive. Your warfarin dose has been changed to 2.5 mg daily for now and may need to be adjusted. Please have your INR checked at the walk-in clinic and follow-up with Dr. Aleyda Whaley on 09/24/18 at 3:15 p.m. regarding your hospitalization. You may discuss anticoagulants other than warfarin that require less monitoring and home health at that time. Please establish care with someone in the community like Dr. Whaley at a separate appointment. Please follow-up with your computer forensics technician, Dr. Gallardo, as directed in the near future. Your furosemide was increased to 60 mg daily and may need to be adjusted by your PCP or computer forensics technician. Your lisinopril was lowered to 5 daily. Please return to the ER immediately if you have any signs of bleeding. Discharge Med Rec/Prescriptions Prescriptions: New warfarin [Coumadin] 2.5 mg Tablet 2.5 mg PO 1700 Qty: 30 RF: 0 lisinopril 5 mg tablet 5 mg PO DAILY Qty: 30 RF: 0 Continued Fish Oil 1,000 mg PO DAILY Qty: 0 RF: 0 anastrozole 1 mg tablet 0.5 mg PO 2XW RF: 0 carvedilol 25 mg tablet 25 mg PO BID RF: 0 lisinopril 20 mg tablet 10 mg PO BID RF: 0 spironolactone 25 mg tablet 12.5 mg PO BID RF: 0 levothyroxine 50 mcg tablet 50 mcg PO DAILY RF: 0 thyroid (pork) 15 mg tablet 45 mg PO DAILY RF: 0 testosterone 1 applic topical DIRECTED RF: 0 Changed furosemide 40 mg tablet 60 mg PO DAILY Qty: 0 RF: 0 Discontinued amlodipine 5 mg tablet 5 mg PO DAILY RF: 0 warfarin 5 mg tablet 5 mg PO SUMOTUTHFRSA RF: 0 warfarin 5 mg tablet 2.5 mg PO WE RF: 0 Other Ambulatory Orders: Prothrombin Time INR (Routine) Timeframe: 5 Days Location: Laboratory Ordered By: Alicia Caputo Follow up/Referrals: Aleyda Whaley MD [Physician] - 09/24/18 3:15 am (appt:09/24 @ 3:[address] nadersen @ [facility] [phone] please fill out and bring new patient information forms [id number] [place] [address] ) Provider Discharge Instructions Diet: Low-fat, Low-sodium and Low-cholesterol Activity: Activity as tolerated with a forward wheeled walker and physical therapy. Visit Report/Discharge Packet Instructions: DI for Heart Failure, DI for Hematoma (Bruise), How to Prevent Falls, DI for Warfarin Therapy Discharge Data Primary Care Provider: Diego Gillespie Attending Provider: Melissa Calix Admit Date/Time: 09/16/18 17:02 Discharges patient from system. Discharge Date/Time: 09/19/18 15:43 Quality VTE Deep Vein Thrombosis/Pulmonary Embolism Present on Admission: No
--- NOTE | 2018-09-19 12:38 | P.DS_ITS ---
History of Present Illness Date Patient Seen: 09/16/18 Chief complaint: states pubic area is all black,legs swelling Narrative: Written by Shimon ANTUNEZ: This is a 77-year-old gentleman with a history congestive failure, atrial fibrillation, ventricular pacemaker, hypertension and hypothyroidism who presents to the hospital today with complaints of abdominal pain, right hip pain with bruising over right hip in abdomen and leg swelling. The patient was in his usual state health which is active and independent when he took a fall 10 days ago that was a nonsyncopal ground level trip and fall landing on his right hip. He has been anticoagulated on warfarin. The patient reports on his last INR was 3.1 and received no call back for dosage adjustment or instructions, he indicates that was a couple months ago and he has not had INR testing since. He states since the fall he has had pain with ambulation and developed progressive leg swelling with increasing pain in the right ankle. He has been using a walker to ambulate and at baseline has needed no assistive devices. Additionally, the patient was seen approximately 10 days ago at [facility] by Cardiology or the patient had spirolactone added to his medication regimen. The patient is no complaints of headaches or dizziness, has no changes in hearing or vision and is status post cataract surgery bilaterally. Denies neck or back pain. He denies chest pain or palpitations and does have a left anterior chest pacemaker. Reports no shortness of breath, exertional dyspnea or cough. He has had no nausea vomiting and has tenderness the lower abdominal wall with presence of ecchymosis extending laterally into the right buttock. Reports difficulty ambulating related to pain. Since his fall is had developed marked swelling in the lower extremities which reports as new though he has been on diuretic therapy. The patient arrived in the ER at 2:37 p.m. at that time he was found to be afebrile at 97.5, have a heart rate 69, blood pressure of 102/66, respiratory rate of 13 with a saturation of 96% on room air. In the ER the patient had a chest x-ray taken which showed a small left pleural effusion/thickening with left atelectasis and enlarged heart. A CT scan of the abdomen was done with the radiologist interpretation of: a large intramuscular hematoma of the right gluteus muscle adjacent to the iliac bone and right hip without bony fracture, nodular thickening of left adrenal which may represent aunt adrenal adenoma. On lab work the patient was found to have INR supratherapeutic at 12.6. His CBC reveals a white count of 9.8 with a left shift, hemoglobin of 9.8 and hematocrit 28.9 and platelets of 183. His electrolytes are within normal range he has a BUN of 33 and creatinine 1.5. His LFTs are within normal range with an elevated bilirubin of 3.8 He has a negative troponin at 0.025 and elevated total CK at 178 with a normal CK-MB at 1.92 and a low index of 1.1. He has a BNP of 445. In the ER patient additionally had EKG completed, received vitamin K 5 mg and 60 mg of Lasix. The patient is admitted for supratherapeutic INR associated bleeding in the form of a large gluteal hematoma. Discharge Providers Date of admission: 09/16/18 17:02 Discharge Date: 09/19/18 Primary care physician: Diego Gillespie MD Consults: 09/16/18 19:44 Consult to Dietitian, Adult Routine Comment: Reason For Exam: supratherapeutic INR, on warfarin 09/16/18 19:46 Consult to Discharge Planning Routine Comment: Consult to Occupational Therapy Evaluate & Treat Comment: large gluteal hematoma r/t supratherapeutic INR Physician Instructions: Evaluate and treat Consult to Physical Therapy Evaluate & Treat Comment: large gluteal hematoma r/t supratherapeutic INR Physician Instructions: Evaluate and Treat Discharge provider: Alicia Caputo DO Summary Discharge Diagnosis: 1. Gluteal pain, present on admission. Resolving. 2. Acute blood loss anemia, present on admission. Stable. 3. Acute on chronic heart failure, secondary to diastolic dysfunction, present on admission. Resolving. 4. History of cardiac pacemaker. 5. Hypothyroidism, chronic, present on admission. Stable. 6. Essential hypertension, chronic, present on admission. Stable. 7. Chronic atrial fibrillation, chronic, present on admission. Stable. 8. Chronic kidney disease stage 2, present on admission. Stable. 9. Mild dementia, chronic, present on admission. Stable. Hospital Course: 1. Gluteal pain, present on admission. Resolving. -Presented with a gluteal hematoma following a fall and a supratherapeutic INR. -Continued to work with PT and OT. INR improved with [facility]. Given his history of atrial fibrillation, resumed low-dose Coumadin at 2.5 mg daily with close follow-up at walk-in Clinic for INR check on Saturday 09/23 and follow-up appointment with Dr. Aleyda Whaley on 09/24. 2. Acute blood loss anemia, present on admission. Stable. -Secondary to fall with hematoma of the gluteal area. -Iron studies not performed and recommended outpatient. -Hemoglobin hematocrit stable and trending up. No further signs of bleeding. Transfusion goal hemoglobin less than 9.0. 3. Acute on chronic heart failure, secondary to diastolic dysfunction, present on admission. Resolving. -Patient presented with shortness of breath possibly secondary to acute blood loss anemia versus CHF exacerbation with recent furosemide dose change by home care scheduler at . Patient has dependent edema to hips bilaterally that has improved markedly. Weight change: max 112 kg down to 105 kg at time of discharge and approx net -7L. -Continued Lasix 40 mg IV twice daily and discharged with increased dose of furosemide from 40 mg daily to 60 mg daily. May need to continue to be adjusted per home care scheduler or PCP that he establishes with. -Continued carvedilol 25 mg twice daily and held lisinopril. Discharged on decreased dose of lisinopril 5 mg daily due to low normal BP with increased dose of Lasix and will need to be addressed at his hospital follow-up. 4. History of cardiac pacemaker. -Patient is currently paced. 5. Hypothyroidism, chronic, present on admission. Stable. -TSH 2.71. Free T4 1.59. -Continued home levothyroxine 50 mcg daily. 6. Essential hypertension, chronic, present on admission. Stable. -Goal blood pressure less than 140/90. -Continued carvedilol 25 mg twice daily and held lisinopril. Discharged on d ecreased dose of lisinopril 5 mg daily due to low normal BP with increased dose of lasix and will need to be addressed at his hospital follow-up. Blood pressure well controlled. 7. Chronic atrial fibrillation, chronic, present on admission. Stable. -Patient's rate is paced and controlled. Continued home carvedilol 25 mg twice daily. Coumadin was initially held but restarted at 2.5 mg daily at bedtime which is half his normal dose. Instructed patient to have INR checked at walk- in Clinic on Sunday and follow up with Dr. Aleyda Whaley on Sunday09/24/2018. 8. Chronic kidney disease stage 2, present on admission. Stable. -Unknown baseline creatinine. Initial creatinine 1.5. -Avoided nephrotoxic agents other than furosemide as above. -Recheck BMP in 1 week at hospital follow-up. 9. Mild dementia, chronic, present on admission. Stable. -Ordered speech therapy evaluation for SLUMS with score of +19/20 indicative of mild dementia (likely vascular). -Patient is still competent to make decisions. Highly recommend he DOES NOT drive at all. Status at Discharge Functional status at discharge: uses cane/walker Overall status at discharge: patient is progressing back to baseline Exam Vital Signs (past 8 hours): - 09/19/18 08:00 Temperature 98.7 F Pulse Rate 67 Respiratory Rate 18 Blood Pressure 117/70 Pulse Oximetry 94 Oxygen Delivery Method Room Air Oxygen Flow Rate 0 Narrative Exam Narrative: General: Elderly gentleman sitting in bed and in no acute distress, well-devel oped, well-nourished, appropriately interactive. HEENT: Normocephalic, atraumatic. External ears without defect. Pupils equal, round, and reactive to light. Anicteric sclerae, moist conjunctivae, and no lid lag. Neck: Supple with full range of motion. No lymphadenopathy or thyromegaly. Cardiovascular: Regular rate and rhythm without murmurs, rubs, or gallops appreciated. Pulmonary: Clear to auscultation bilaterally without crackles, wheezes, or rhonchi. Normal respiratory effort with no use of accessory muscles. Abdomen: Soft, bowel sounds present, nontender, nondistended. No hepatosple nomegaly or masses appreciated. Extremities: No clubbing or cyanosis. Dependent edema to hips bilaterally, improved. Large hematoma over low right gluteus, nontender and stable. Skin: Normal temperature, turgor, and texture; no rash, ulcers, or subcutaneous nodules appreciated. Neurological: Cranial nerves grossly intact. Psychiatric: Normal mood and affect. Alert and oriented to person, place, and time. Poor insight. Objective Labs Result Diagrams: 09/19/18 05:29 09/19/18 05:29 Labs: Laboratory Results - last 24 hr 09/19/18 09/19/18 09/19/18 05:29 05:29 05:29 WBC 8.0 RBC 2.97 L Hgb 9.7 L Hct 28.6 L MCV 96.2 MCH 32.5 MCHC 33.8 RDW 17.6 H Plt Count 202 Neut % (Auto) 70.3 Lymph % (Auto) 16.1 L [place] % (Auto) 11.4 Eos % (Auto) 1.5 L Baso % (Auto) 0.7 Neut # (Auto) 5600 Lymph # (Auto) 1300 [place] # (Auto) 900 Eos # (Auto) 100 Baso # (Auto) 100 PT 36.5 H D INR 3.1 H Sodium 133 L Potassium 3.7 Chloride 93 L Carbon Dioxide 32 BUN 38 H Creatinine 1.60 H Estimated GFR 41.9 L BUN/Creatinine Ratio 23.8 H Glucose 88 Calcium 8.5 Discharge Plan Discharge Plan Patient Disposition: Home Discharge comment: You are being discharged home. A assisted facility for rehabilitation or home health was highly recommended but you kindly declined. You are high risk of bleeding and should you fall again. Please follow-up with the physical therapist outpatient 2-3 times per week at the very least. DO NOT drive. Your warfarin dose has been changed to 2.5 mg daily for now and may need to be adjusted. Please have your INR checked at the walk-in clinic and follow-up with Dr. Aleyda Whaley on 09/24/18 at 3:15 p.m. regarding your hospitalization. You may discuss anticoagulants other than warfarin that require less monitoring and home health at that time. Please establish care with someone in the community like Dr. Whaley at a separate appointment. Please follow-up with your home care scheduler, Dr. Gallardo, as directed in the near future. Your furosemide was increased to 60 mg daily and may need to be adjusted by your PCP or home care scheduler. Your lisinopril was lowered to 5 daily. Please return to the ER immediately if you have any signs of bleeding. Discharge Med Rec/Prescriptions Prescriptions: New warfarin [Coumadin] 2.5 mg Tablet 2.5 mg PO 1700 Qty: 30 RF: 0 lisinopril 5 mg tablet 5 mg PO DAILY Qty: 30 RF: 0 Continued Fish Oil 1,000 mg PO DAILY Qty: 0 RF: 0 anastrozole 1 mg tablet 0.5 mg PO 2XW RF: 0 carvedilol 25 mg tablet 25 mg PO BID RF: 0 lisinopril 20 mg tablet 10 mg PO BID RF: 0 spironolactone 25 mg tablet 12.5 mg PO BID RF: 0 levothyroxine 50 mcg tablet 50 mcg PO DAILY RF: 0 thyroid (pork) 15 mg tablet 45 mg PO DAILY RF: 0 testosterone 1 applic topical DIRECTED RF: 0 Changed furosemide 40 mg tablet 60 mg PO DAILY Qty: 0 RF: 0 Discontinued amlodipine 5 mg tablet 5 mg PO DAILY RF: 0 warfarin 5 mg tablet 5 mg PO SUMOTUTHFRSA RF: 0 warfarin 5 mg tablet 2.5 mg PO WE RF: 0 Other Ambulatory Orders: Prothrombin Time INR (Routine) Timeframe: 5 Days Location: Laboratory Ordered By: Alicia Caputo Follow up/Referrals: Aleyda Whaley MD [Physician] - 09/24/18 3:15 am (appt:09/24 @ 3:[address] andersen @ [facility] [phone] please fill out and bring new patient information forms [address] [place] [address] ) Provider Discharge Instructions Diet: Low-fat, Low-sodium and Low-cholesterol Activity: Activity as tolerated with a forward wheeled walker and physical therapy. Visit Report/Discharge Packet Instructions: DI for Heart Failure, DI for Hematoma (Bruise), How to Prevent Falls, DI for Warfarin Therapy Discharge Data Primary Care Provider: Diego Gillespie Attending Provider: Melissa Calix Admit Date/Time: 09/16/18 17:02 Discharges patient from system. Discharge Date/Time: 09/19/18 15:43 Quality VTE Deep Vein Thrombosis/Pulmonary Embolism Present on Admission: No
[2018-09-19 13:03] VITALS: BP 108/69; PULSE 70; RESP 16; TEMP 37.1; O2SAT 98
--- NOTE | 2018-09-19 13:48 | CM.DPC ---
Addendum entered by Analisa Sanchez LPN 09/19/18 16:11: Spoke with Lucila as planned when she arrived to pick pt up. Discussed the APS referral that was sent in and encouraged her to do same. She readily agreed and did accept the APS contact information. Original Note: Addendum entered by Analisa Sanchez LPN 09/19/18 14:11: APS referral given now to Wilmer: [phone]. Discussed the case as known thus far and agreed to fax notes to: [phone]/done. Wilmer noted this should be processed by the end of the day. Original Note: DCP: continued: Case received, EMR reviewed and spoke with Dr. Caputo today in Team Rounds. OT and PT were recommending pt go either to snf setting or home w 29/01 assist. Met with pt by himself and went over these options. He noted that he did not want anyone going into his home. He did not want to consider HH. His cousin Lucila had wondered about a hospice referral as pt wishes to live in his home with his dog until he dies. Pt confirms this goal but says that hospice is not what he wants either. Met then with pt when Lucila arrived and discussed this further. Pt at that point was agreeable to establishing with a PCP and Lucila planned to get him an appt with [facility] (she also goes there). HH was again discussed and pt was agreeable during this discussion. He was aware that a PCP was needed first and Lucila had planned to facilitate this. She also was aware that pt was not managing him medications well and offered to assist him with this. POA was encouraged and pt accepted this paperwork with plan to give this either to his friend Ramos or to Lucila. Spoke with Dr. Caputo about an hour later. She had spoken with pt shortly after Lucila left. He stated to her that he wanted no one in his home and that he would do fine on his own. Dr. Caputo also reported that she called Lucila to relay that pt was going to d/c today and said that Lucila was concerned as pt had a tendency to be violent. Dr. Caputo requested that APS referral be put in. Encouraged her to document her concerns re same but agreed to do this for her. Will also see Lucila when she comes in to pick pt up and encourage her or her to make this referral as she is more aware of the concerns. OT Liliana did do a cognitive test today which she states shows some level of dementia. These notes are not currently in the EMR.
--- NOTE | 2018-09-19 14:20 | PT.IPTN ---
Current Diagnoses Acute posthemorrhagic anemia (09/16/18) Anemia in other chronic diseases classified elsewhere (09/16/18) Hypothyroidism, unspecified (09/16/18) Essential (primary) hypertension (09/16/18) Paroxysmal atrial fibrillation (09/16/18) Chronic atrial fibrillation (09/16/18) Heart failure, unspecified (09/16/18) Myalgia, other site (09/16/18) Abnormal coagulation profile (09/16/18) Contusion of abdominal wall, initial encounter (09/16/18) Presence of cardiac pacemaker (09/16/18) Physical Therapy Treatment Note M2 PT-IP Current Condition Start: 09/17/18 09:08 Freq: NEEDED Status: Active Protocol: Document 09/17/18 14:40 RS (Rec: 09/17/18 15:03 RS [id number]) Physical Therapy Current Condition Current Condition Evaluation Date 09/17/18 Treatment Diagnosis weak, SOB, s/p GLF Onset Date fell ~10 days ago M3 PT-IP Subjective Start: 09/17/18 09:08 Freq: NEEDED Status: Active Protocol: Document 09/19/18 14:20 GGD (Rec: 09/19/18 14:20 GGD [id number]) Subjective Physical Therapy Visit Type Type Patient Refusal Notes Pt refused, states he is D/C in a hour. risk.
--- NOTE | 2018-09-19 15:34 | PC.NURSE ---
Day Shift- Reviewed discharge summary with pt and his cousin Lucila and her . Reviewed prescriptions that were electronically sent to [facility] pharmacy in [place]. Medication dose changes, pt states has pill splitter at home. Encouraged recording medications to assure accuracy and after establishing a medication regime, possibly having his medications blister packed by his pharmacy. Also reviewed follow up appointment with Dr. Whaley on 09/24 and bringing new pt information pre-filled prior to appointment. Going to walk in clinic on 09/24 for INR blood work. Pt has paperwork for INR order, copy also placed in chart. Prescription for outpatient physical therapy given and copy placed in chart. Questions answered, pt states wants to go home. Reinforced no driving per Dr. Caputo and accepting help from friends/family in order to get him safely to his appointments. Pt left unit via wheelchair with [employer] at [phone] , Lucila and her present to drive pt home.
== END 2018-09-19 15:43 | disposition home or self-care (01) | DRG 813 ==
LOC: ED 14:54 → AC 17:03
PROVIDERS: Nurse Practitioner Adult Health; Admitting Provider Internal Medicine; Emergency Provider Emergency Medicine; Family Provider Family Medicine; PCP Family Medicine; Visit Provider Internal Medicine
DX: D68.318 Other hemorrhagic disorder due to intrinsic circulating anticoagulants, antibodies, or inhibitors (principal); I50.33 Acute on chronic diastolic (congestive) heart failure; D62 Acute posthemorrhagic anemia; I13.0 Hypertensive heart and chronic kidney disease with heart failure and stage 1 through stage 4 chronic kidney disease, or unspecified chronic kidney disease; S30.0XXA Contusion of lower back and pelvis, initial encounter; W19.XXXA Unspecified fall, initial encounter; R79.1 Abnormal coagulation profile; I48.2 Chronic atrial fibrillation; Z79.01 Long term (current) use of anticoagulants; E03.9 Hypothyroidism, unspecified; Z95.0 Presence of cardiac pacemaker; D64.89 Other specified anemias; N18.2 Chronic kidney disease, stage 2 (mild)
CPT/HCPCS: 36415; 71045; 74177; 80048; 80053; 81001; 82550; 82553; 83690; 83735; 83880; 84100; 84439; 84443; 84484; 85025; 85610; 85730; 93005; 93306; 94762; 96374; 97116; 97127; 97162; 97165; 97530; 97535; 99283; 99285; C9132; J1940; Q9967

== ENCOUNTER 2020-02-05 15:35 | Inpatient (IN) | payer MEDICARE, OTHER, SELFPAY ==
[2018-09-16 18:00] VITALS: BMI 29.2
[2020-02-05] VITALS (9 sets, daily range): BP systolic 116–168; BP diastolic 71–108; PULSE 69–71; RESP 14–22; TEMP 36.7–36.9; O2SAT 92–97; BMI 26.7
--- NOTE | 2020-02-05 | DI.RAD.S_ITS ---
PROCEDURE: XR CHEST 1V INDICATIONS: BROKEN HIP TECHNIQUE: One view of the chest was acquired. COMPARISON: [facility], CR, XR CHEST 1V, 09/16/2018, 15:05. FINDINGS: Surgical changes and devices: Left chest wall cardiac device position is unchanged. Mediastinum E wires are also seen. Lungs and pleura: There is mild pulmonary vascular congestion. No focal infiltrate. No pleural effusions or pneumothorax. Mediastinum: Mediastinal contours appear normal. Heart size is enlarged. Bones and chest wall: No suspicious bony lesions. Overlying soft tissues appear unremarkable. IMPRESSION: Cardiomegaly and very mild pulmonary vascular congestion. No focal infiltrate or pneumothorax. Dictated by: Snajay Vann M.D. on 02/05/2020 at 16:43 Approved by: Sanjay Vann M.D. on 02/05/2020 at 16:44
--- NOTE | 2020-02-05 15:51 | DI.RAD.S_ITS ---
PROCEDURE: XR HIP W PEL IF DONE LT 2V INDICATIONS: possible fracute TECHNIQUE: AP pelvis with lateral view(s) of the left hip(s). COMPARISON: None. FINDINGS: Bones: There is suggestion of an acute fracture of left femoral neck with superior migration of left femoral shaft in relation to femoral head. No dislocation. Mild bilateral hip joint osteoarthritic changes are seen. Soft tissues: The visualized bowel gas pattern is normal. No suspicious soft tissue calcifications. IMPRESSION: Finding is suggestive of acute left femoral neck fracture as above. Dictated by: Sanjay Vann M.D. on 02/05/2020 at 16:42 Approved by: Sanjay Vann M.D. on 02/05/2020 at 16:43
[2020-02-05 16:44] LABS: Add Manual Diff / Slide Review NO; Basophils Absolute Auto 100 /uL (0-100); Basophils Percent Auto 0.7 % (0-2); Eosinophils Absolute Auto 0 /uL (0-450); Eosinophils Percent Auto 0.5 % (2-4); Hematocrit 43.4 % (41-53); Hemoglobin 14.7 g/dL (13.5-17.5); Lymphocytes Absolute Auto 1000 /uL (1100-4500); Lymphocytes Percent Auto 12.1 % (25-40); Mean Corpuscular HGB Conc 33.9 % (30-36); Mean Corpuscular Hemoglobin 32.3 PG (26-34); Mean Corpuscular Volume 95.4 fL (80-100); Monocytes Absolute Auto 500 /uL (0-900); Monocytes Percent Auto 6.2 % (3-14); Neutrophils Absolute Auto 6500 /uL (1500-7000); Neutrophils Percent Auto 80.5 % (50-75); Platelet Count 159 X10^3/uL (150-400); Red Blood Cell Count 4.55 X10^6/uL (4.5-5.9); Red Cell Distribution Width 15.7 % (11.6-14.8); White Blood Cell Count 8.1 X10^3/uL (4.5-11.0)
[2020-02-05 16:50] LABS: INR 3.8 (0.9-1.3); Prothrombin Time 43.4 SECONDS (10.1-12.7)
[2020-02-05 16:53] LABS: PTT Partial Thromboplastin Tim 40 SECONDS (26.4-36.2)
[2020-02-05 16:54] LABS: Alanine Aminotransferase 29 IU/L (<50); Albumin 3.9 g/dL (3.5-5.0); Albumin Globulin Ratio 1.4 (1.0-2.8); Alkaline Phosphatase 63 U/L (38-126); Aspartate Aminotransferase 37 IU/L (17-59); BUN Creatinine Ratio 22.2 (6-22); Blood Urea Nitrogen 40 mg/dL (9-20); Calcium 9.5 mg/dL (8.4-10.2); Carbon Dioxide 24 mmol/L (22-32); Chloride 100 mmol/L (98-107); Estimated Glomerular Filt Rate 36.5 mL/min (>60); Globulin 2.8 g/dL (1.7-4.1); Glucose 123 mg/dL (80-110); HEMOLYSIS 26 (0-50); Potassium 4.6 mmol/L (3.4-5.1); Sodium 132 mmol/L (137-145); Total Protein 6.7 g/dL (6.3-8.2)
--- NOTE | 2020-02-05 17:02 | ED_ITS ---
HPI - Extremity Injury (Lower) <Idalia Ku PA-C - Last Filed: 02/05/20 21:35> General Chief Complaint: Extremity Injury, Lower Stated Complaint: possible fractured hip Time Seen by Provider: 02/05/20 16:35 Source: patient History of Present Illness HPI Narrative: This is an 79-year-old with a afib with pacemaker on warfarin, CHF, hypertension, hypothyroid who presents to the emergency department brought in by EMS after sustaining a fall today and complaining of left hip pain. He says he was outside walking his Labrador retriever and he stepped off of a curb that he was not expecting and fell onto the ground catching himself with his left hand and his left hip. Did not hit his head, he did not lose consciousness. He complains of no other injuries other than left hip pain. He has otherwise been in his normal state of health, this is the isolated complaint. Says that he does live by himself but he has friends in the area. Someone is taking care of his dog for him. MD complaint: hip injury Onset (ago): hour(s) (1) Injury: Left: hip Type of Injury: blunt Place: street/outdoors Severity: moderate Severity scale (1-10): 4 Relieving factors: immobilization Exacerbating factors: movement and palpation Context: fall Associated symptoms: unable to bear weight Other symptoms: none Related Data Home Medications Medication Instructions Recorded Confirmed Fish Oil 1,000 mg PO DAILY #0 12/27/11 09/16/18 anastrozole 0.5 mg PO 2XW 09/16/18 02/05/20 carvedilol 25 mg PO BID 09/16/18 02/05/20 levothyroxine 50 mcg PO DAILY 09/16/18 02/05/20 lisinopril 10 mg PO BID 09/16/18 09/16/18 spironolactone 12.5 mg PO BID 09/16/18 02/05/20 testosterone 1 applic TOPICAL DIRECTED 09/16/18 02/05/20 thyroid (pork) 45 mg PO DAILY 09/16/18 09/16/18 Previous Rx's Medication Instructions Recorded furosemide 60 mg PO DAILY #0 tab 09/19/18 lisinopril 5 mg PO DAILY #30 tab 09/19/18 warfarin [Coumadin] 2.5 mg PO 1700 #30 tab 09/19/18 Allergies Allergy/AdvReac Type Severity Reaction Status Date / Time No Known Drug Allergies Allergy Verified 02/05/20 15:51 Review of Systems <Idalia Ku PA-C - Last Filed: 02/05/20 21:35> Review of Systems Narrative: GENERAL: Denies chills, fatigue, malaise, fever, sweats. HEENT: Denies sinus pain, ear pain, sore throat, difficulty swallowing, dizziness. RESPIRATORY: Denies dyspnea, cough, wheezing, hemoptysis, sputum. CARDIOVASCULAR: Denies chest pain, palpitations, orthopnea, edema, GASTROINTESTINAL: Denies nausea, vomiting, abdominal pain, diarrhea, constipation, melena. : Denies dysuria, frequency, incontinence, hematuria, urinary retention. MUSCULOSKELETAL: Positive for left hip pain since the fall today, positive for chronic back pain, denies other weakness, joint pain, or bony pain SKIN: Denies rash, skin lesions, or other NEUROLOGIC: Denies weakness, headache, numbness, change in speech, confusion, seizures, incoordination. PSYCHIATRIC: No concerning psychosocial issues. 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) Hypertension (Acute) Hypothyroid (Acute) Pacemaker (Acute) Surgical History (Updated 02/05/20 @ 21:35 by Wojciech Tenorio MD) History of heart valve repair (Acute) Status post biventricular pacemaker (Acute) Status post cardiac catheterization (12/25/07) Status post hernia repair Status post transurethral resection of prostate Family History Father Heart disease Mother Heart disease Social History household members: none Smoking Status: Never smoker Smoking Status: Never smoker alcohol intake frequency: holidays/special occasions only Substance Use Type: does not use Exam <CHRISTIANO Ag Last Filed: 02/05/20 21:35> Narrative Exam Narrative: GENERAL: 79 year old patient appears stated age. Well-nourished, slim, in mild distress. HEAD: Atraumatic. Normocephalic. EYES: Pupils equal round and reactive. Extraocular motions intact. No scleral icterus. No injection or drainage. ENT: Nose without bleeding, purulent drainage. Throat without erythema, tonsillar hypertrophy or exudate. Airway patent. NECK: Trachea midline. Non tender CARDIOVASCULAR: Regular rate and rhythm without murmurs, gallops, or rubs, paced. RESPIRATORY: Clear to auscultation. Breath sounds equal bilaterally. No wheezes, rales, or rhonchi. GASTROINTESTINAL: Abdomen soft, non-tender, nondistended. EXTREMITIES: The left leg is shortened and externally rotated. He has tenderness of the left hip, dorsalis pedis pulses are strong and equal bilaterally. Skin color of left lower extremity is consistent with the right, the left lower extremity is warm and dry. No other edema or joint tenderness. BACK: Limited exam due to patient position and left hip fracture. Some tenderness, without deformity or crepitance. No flank tenderness. NEURO: AOx3. SKIN: No rash or erythema of visible areas Initial Vital Signs Initial Vital Signs: Vital Signs Temperature 98.4 F 02/05/20 15:45 Pulse Rate 71 02/05/20 15:45 Respiratory Rate 14 02/05/20 15:45 Blood Pressure 123/76 02/05/20 15:45 Pulse Oximetry 95 02/05/20 15:45 <Bouchra Bain MD - Last Filed: 02/05/20 23:56> Initial Vital Signs Initial Vital Signs: Vital Signs Temperature 98.4 F 02/05/20 15:45 Pulse Rate 71 02/05/20 15:45 Respiratory Rate 14 02/05/20 15:45 Blood Pressure 123/76 02/05/20 15:45 Pulse Oximetry 95 02/05/20 15:45 Scores <CHRISTIANO Ag Last Filed: 02/05/20 21:35> GCS Reading coma scale eye opening: Spontaneous Reading coma scale verbal response: Orientated Reading coma scale motor response: Obey commands Sun coma scale total score: 15 Course <CHRISTIANO Ag Filed: 02/05/20 21:35> Course Course Narrative: Spoke with Dr. Sampson, orthopedics who advises admit to hospitalist, they will likely do surgery tomorrow. 17:[address] Caputo who advises that Dr. Tenorio likely be taking over/accepting this patient, she advises that we should give him 10 mg of vitamin K to reverse his INR as it is 3.8 today, and they will need it down much lower for surgery tomorrow. 18:12 Orders Ordered: ED Orders 02/05/20 15:51 XR hip w pel if done LT 2V Stat 02/05/20 16:30 Complete Blood Count AUTO DIFF Stat Comprehensive Metabolic Panel Stat Partial Thromboplastin Time Stat Prothrombin Time INR Stat 02/05/20 16:37 EKG-12 Lead Stat Acetaminophen (Tylenol) 650 mg PO Q4HR [facility] Last Admin: 02/05/20 21:16 Dose: 650 mg Documented by: LVDEANNA Hydrocodone Bitart/Acetaminophen ([place]ennis 5/325) 2 tab PO Q4HR PRN PRN Reason: Pain, Severe (7-10) Carvedilol (Coreg) 25 mg PO BID [facility] Last Admin: 02/05/20 21:16 Dose: 25 mg Documented by: LVDEANNA Fentanyl (Sublimaze) 50 mcg IV Q1H PRN PRN Reason: Pain, Severe (7-10) Hydromorphone HCl (Dilaudid) 0.5 mg IV Q6HR PRN PRN Reason: Pain, Moderate (4-6) Last Admin: 02/05/20 21:05 Dose: 0.5 mg Documented by: LVAZQUE Sodium Chloride (Normal Saline 0.9%) 1,000 mls @ 75 mls/hr IV CONT [facility] Last Admin: 02/05/20 21:17 Dose: Not Given Documented by: LVAZQUE Dextrose/Sodium Chloride (Dextrose 5%-0.9% Ns) 1,000 mls @ 80 mls/hr IV CONT [facility] Last Admin: 02/05/20 21:16 Dose: 80 mls/hr Documented by: LVCAROLYNNQUE Levothyroxine Sodium (Synthroid) 50 mcg PO DAILY [facility] Lisinopril (Zestril) 10 mg PO BID [facility] Last Admin: 02/05/20 23:35 Dose: 10 mg Documented by: CHELO Naloxone HCl (Narcan) 0.2 mg IV Q2MIN PRN PRN Reason: Opiate Reversal Ondansetron HCl (Zofran) 4 mg IV Q8HR PRN PRN Reason: Nausea And Vomiting Spironolactone (Aldactone) 12.5 mg PO BID [facility] Last Admin: 02/05/20 21:17 Dose: 12.5 mg Documented by: CHELO Thyroid ([place] Thyroid) 45 mg PO 0600 [facility] Discontinued Medications Fentanyl (Sublimaze) 75 mcg IV NOW ONE Stop: 02/05/20 17:41 Last Admin: 02/05/20 17:53 Dose: 75 mcg Documented by: CTRSUELLEN Lisinopril (Zestril) 5 mg PO DAILY [facility] Morphine Sulfate (Morphine) 4 mg IV NOW ONE Stop: 02/05/20 17:37 Last Admin: 02/05/20 19:29 Dose: Not Given Documented by: CHELO Phytonadione (Mephyton) 10 mg PO NOW ONE Stop: 02/05/20 18:24 Last Admin: 02/05/20 18:45 Dose: 10 mg Documented by: SUDHA Vital Signs Vital signs: Vital Signs - 8 hr 02/05/20 16:30 02/05/20 16:47 02/05/20 17:00 Pulse Rate 69 69 Pulse Rate [Left Dorsalis Pedis] 71 Respiratory Rate 19 17 Blood Pressure Pulse Oximetry 95 93 02/05/20 17:57 Pulse Rate 69 Pulse Rate [Left Dorsalis Pedis] Respiratory Rate 20 Blood Pressure 116/71 Pulse Oximetry 97 <Bouchra Bain MD - Last Filed: 02/05/20 23:56> Orders Ordered: ED Orders 02/05/20 15:51 XR hip w pel if done LT 2V Stat 02/05/20 16:30 Complete Blood Count AUTO DIFF Stat Comprehensive Metabolic Panel Stat Partial Thromboplastin Time Stat Prothrombin Time INR Stat 02/05/20 16:37 EKG-12 Lead Stat Acetaminophen (Tylenol) 650 mg PO Q4HR [facility] Last Admin: 02/05/20 21:16 Dose: 650 mg Documented by: CHELO Hydrocodone Bitart/Acetaminophen (Dennis 5/325) 2 tab PO Q4HR PRN PRN Reason: Pain, Severe (7-10) Carvedilol (Coreg) 25 mg PO BID [facility] Last Admin: 02/05/20 21:16 Dose: 25 mg Documented by: CHELO Fentanyl (Sublimaze) 50 mcg IV Q1H PRN PRN Reason: Pain, Severe (7-10) Hydromorphone HCl (Dilaudid) 0.5 mg IV Q6HR PRN PRN Reason: Pain, Moderate (4-6) Last Admin: 02/05/20 21:05 Dose: 0.5 mg Documented by: CHELO Sodium Chloride (Normal Saline 0.9%) 1,000 mls @ 75 mls/hr IV CONT [facility] Last Admin: 02/05/20 21:17 Dose: Not Given Documented by: CHELO Dextrose/Sodium Chloride (Dextrose 5%-0.9% Ns) 1,000 mls @ 80 mls/hr IV CONT [facility] Last Admin: 02/05/20 21:16 Dose: 80 mls/hr Documented by: CHELO Levothyroxine Sodium (Synthroid) 50 mcg PO DAILY [facility] Lisinopril (Zestril) 10 mg PO BID [facility] Last Admin: 02/05/20 23:35 Dose: 10 mg Documented by: CHELO Naloxone HCl (Narcan) 0.2 mg IV Q2MIN PRN PRN Reason: Opiate Reversal Ondansetron HCl (Zofran) 4 mg IV Q8HR PRN PRN Reason: Nausea And Vomiting Spironolactone (Aldactone) 12.5 mg PO BID [facility] Last Admin: 02/05/20 21:17 Dose: 12.5 mg Documented by: CHELO Thyroid ([place] Thyroid) 45 mg PO 0600 [facility] Discontinued Medications Fentanyl (Sublimaze) 75 mcg IV NOW ONE Stop: 02/05/20 17:41 Last Admin: 02/05/20 17:53 Dose: 75 mcg Documented by: CTR.SHERYL Lisinopril (Zestril) 5 mg PO DAILY [facility] Morphine Sulfate (Morphine) 4 mg IV NOW ONE Stop: 02/05/20 17:37 Last Admin: 02/05/20 19:29 Dose: Not Given Documented by: CHELO Phytonadione (Mephyton) 10 mg PO NOW ONE Stop: 02/05/20 18:24 Last Admin: 02/05/20 18:45 Dose: 10 mg Documented by: [email or web address] Vital Signs Vital signs: Vital Signs - 8 hr 02/05/20 16:30 02/05/20 16:47 02/05/20 17:00 Pulse Rate 69 69 Pulse Rate [Left Dorsalis Pedis] 71 Respiratory Rate 19 17 Blood Pressure Pulse Oximetry 95 93 02/05/20 17:57 Pulse Rate 69 Pulse Rate [Left Dorsalis Pedis] Respiratory Rate 20 Blood Pressure 116/71 Pulse Oximetry 97 MDM - Extremity Injury (Lower) <Idalia Ku PA-C - Last Filed: 02/05/20 21:35> Differential Diagnosis Differential diagnosis: Likely fracture of hip and other (Vascular injury, nerve injury, internal bleeding) Medical Records Attestation: I reviewed the patient's medical records. Lab Data Attestation: I reviewed the patient's lab results. Result diagrams: 02/05/20 16:30 02/05/20 16:30 Labs: Lab Results 02/05/20 02/05/20 02/05/20 Range/Units 15:45 16:30 16:30 WBC 8.1 (4.5-11.0) X10^3/uL RBC 4.55 (4.5-5.9) X10^6/uL Hgb 14.7 (13.5-17.5) g/dL Hct 43.4 (41-53) % MCV 95.4 (80-100) fL MCH 32.3 (26-34) PG MCHC 33.9 (30-36) % RDW 15.7 H (11.6-14.8) % Plt Count 159 (150-400) X10^3/uL Neut % (Auto) 80.5 H (50-75) % Lymph % (Auto) 12.1 L (25-40) % [place] % (Auto) 6.2 (3-14) % Eos % (Auto) 0.5 L (2-4) % Baso % (Auto) 0.7 (0-2) % Neut # (Auto) 6500 (7509-8991) /uL Lymph # (Auto) 1000 L (3689-2397) /uL [place] # (Auto) 500 (0-900) /uL Eos # (Auto) 0 (0-450) /uL Baso # (Auto) 100 (0-100) /uL PT (10.1-12.7) SECONDS INR (0.9-1.3) APTT (26.4-36.2) SECONDS Sodium 132 L (137-145) mmol/L Potassium 4.6 (3.4-5.1) mmol/L Chloride 100 (98-107) mmol/L Carbon Dioxide 24 (22-32) mmol/L BUN 40 H (9-20) mg/dL Creatinine 1.80 H (0.66-1.25) mg/dL Estimated GFR 36.5 L (>60) mL/min BUN/Creatinine Ratio 22.2 H (6-22) Glucose 123 H (80-110) mg/dL Calcium 9.5 (8.4-10.2) mg/dL Total Bilirubin 1.0 (0.2-1.3) mg/dL AST 37 (17-59) IU/L ALT 29 (<50) IU/L Alkaline Phosphatase 63 (38-126) U/L Total Protein 6.7 (6.3-8.2) g/dL Albumin 3.9 (3.5-5.0) g/dL Globulin 2.8 (1.7-4.1) g/dL Albumin/Globulin Ratio 1.4 (1.0-2.8) COVID-19 PCR Negative (Negative) 02/05/20 Range/Units 16:30 WBC (4.5-11.0) X10^3/uL RBC (4.5-5.9) X10^6/uL Hgb (13.5-17.5) g/dL Hct (41-53) % MCV (80-100) fL MCH (26-34) PG MCHC (30-36) % RDW (11.6-14.8) % Plt Count (150-400) X10^3/uL Neut % (Auto) (50-75) % Lymph % (Auto) (25-40) % [place] % (Auto) (3-14) % Eos % (Auto) (2-4) % Baso % (Auto) (0-2) % Neut # (Auto) (4632-0861) /uL Lymph # (Auto) (5587-3329) /uL [place] # (Auto) (0-900) /uL Eos # (Auto) (0-450) /uL Baso # (Auto) (0-100) /uL PT 43.4 H (10.1-12.7) SECONDS INR 3.8 H (0.9-1.3) APTT 40 H D (26.4-36.2) SECONDS Sodium (137-145) mmol/L Potassium (3.4-5.1) mmol/L Chloride (98-107) mmol/L Carbon Dioxide (22-32) mmol/L BUN (9-20) mg/dL Creatinine (0.66-1.25) mg/dL Estimated GFR (>60) mL/min BUN/Creatinine Ratio (6-22) Glucose (80-110) mg/dL Calcium (8.4-10.2) mg/dL Total Bilirubin (0.2-1.3) mg/dL AST (17-59) IU/L ALT (<50) IU/L Alkaline Phosphatase (38-126) U/L Total Protein (6.3-8.2) g/dL Albumin (3.5-5.0) g/dL Globulin (1.7-4.1) g/dL Albumin/Globulin Ratio (1.0-2.8) COVID-19 PCR (Negative) Imaging Data XR hip: Attestation: I personally reviewed and interpreted this imaging study as follows: Radiologist's Impression: [address] [address] XRay Report Signed Patient: Dion Torres CMR#: [id number] : 1940Acct:[id number] Age/Sex: 79 / MDate of Service: 02/05/20 Loc: ED Accession Number: [id number] Procedure: XR hip w pel if done LT 2V Ordering Provider: Finesse Rivera MD PROCEDURE: XR HIP W PEL IF DONE LT 2V INDICATIONS: possible fracute TECHNIQUE: AP pelvis with lateral view(s) of the left hip(s). COMPARISON: None. FINDINGS: Bones: There is suggestion of an acute fracture of left femoral neck with superior migration of left femoral shaft in relation to femoral head. No dislocation. Mild bilateral hip joint osteoarthritic changes are seen. Soft tissues: The visualized bowel gas pattern is normal. No suspicious soft tissue calcifications. IMPRESSION: Finding is suggestive of acute left femoral neck fracture as above. Dictated by: Sanjay Vann M.D. on 02/05/2020 at 16:42 Approved by: Sanjay Vann M.D. on 02/05/2020 at 16:43 ECG Data Attestation: I personally reviewed and interpreted this ECG as follows: Interpretation: Biventricular paced rhythm, rate of 70 QRS 140 QT 432 MDM Narrative Medical decision making narrative: This is an alert 79-year-old who has a history of biventricular pacemaker, hypothyroid, AFib, anemia, CHF, hypertension, on warfarin who presents with left hip pain following a fall today while walking his dog and is found have a left hip fracture. This is a modified trauma. Physical exam was unremarkable other than findings of a shortened and externally rotated leg and left hip pain. He did not hit his head, no LOC, no head pain, no neck pain. Surgery was consulted, patient was admitted to hospitalist. Pain control, IV fluids, vitamin K to reverse his INR of 3.8, rapid covered swab. In advance of surgery. <Bouchra Bain MD - Last Filed: 02/05/20 23:56> Lab Data Labs: Lab Results 02/05/20 02/05/20 02/05/20 Range/Units 15:45 16:30 16:30 WBC 8.1 (4.5-11.0) X10^3/uL RBC 4.55 (4.5-5.9) X10^6/uL Hgb 14.7 (13.5-17.5) g/dL Hct 43.4 (41-53) % MCV 95.4 (80-100) fL MCH 32.3 (26-34) PG MCHC 33.9 (30-36) % RDW 15.7 H (11.6-14.8) % Plt Count 159 (150-400) X10^3/uL Neut % (Auto) 80.5 H (50-75) % Lymph % (Auto) 12.1 L (25-40) % [place] % (Auto) 6.2 (3-14) % Eos % (Auto) 0.5 L (2-4) % Baso % (Auto) 0.7 (0-2) % Neut # (Auto) 6500 (9214-6699) /uL Lymph # (Auto) 1000 L (0006-5758) /uL [place] # (Auto) 500 (0-900) /uL Eos # (Auto) 0 (0-450) /uL Baso # (Auto) 100 (0-100) /uL PT (10.1-12.7) SECONDS INR (0.9-1.3) APTT (26.4-36.2) SECONDS Sodium 132 L (137-145) mmol/L Potassium 4.6 (3.4-5.1) mmol/L Chloride 100 (98-107) mmol/L Carbon Dioxide 24 (22-32) mmol/L BUN 40 H (9-20) mg/dL Creatinine 1.80 H (0.66-1.25) mg/dL Estimated GFR 36.5 L (>60) mL/min BUN/Creatinine Ratio 22.2 H (6-22) Glucose 123 H (80-110) mg/dL Calcium 9.5 (8.4-10.2) mg/dL Total Bilirubin 1.0 (0.2-1.3) mg/dL AST 37 (17-59) IU/L ALT 29 (<50) IU/L Alkaline Phosphatase 63 (38-126) U/L Total Protein 6.7 (6.3-8.2) g/dL Albumin 3.9 (3.5-5.0) g/dL Globulin 2.8 (1.7-4.1) g/dL Albumin/Globulin Ratio 1.4 (1.0-2.8) COVID-19 PCR Negative (Negative) 02/04/ Range/Units 16:30 WBC (4.5-11.0) X10^3/uL RBC (4.5-5.9) X10^6/uL Hgb (13.5-17.5) g/dL Hct (41-53) % MCV (80-100) fL MCH (26-34) PG MCHC (30-36) % RDW (11.6-14.8) % Plt Count (150-400) X10^3/uL Neut % (Auto) (50-75) % Lymph % (Auto) (25-40) % [place] % (Auto) (3-14) % Eos % (Auto) (2-4) % Baso % (Auto) (0-2) % Neut # (Auto) (1919-6428) /uL Lymph # (Auto) (0207-4591) /uL [place] # (Auto) (0-900) /uL Eos # (Auto) (0-450) /uL Baso # (Auto) (0-100) /uL PT 43.4 H (10.1-12.7) SECONDS INR 3.8 H (0.9-1.3) APTT 40 H D (26.4-36.2) SECONDS Sodium (137-145) mmol/L Potassium (3.4-5.1) mmol/L Chloride (98-107) mmol/L Carbon Dioxide (22-32) mmol/L BUN (9-20) mg/dL Creatinine (0.66-1.25) mg/dL Estimated GFR (>60) mL/min BUN/Creatinine Ratio (6-22) Glucose (80-110) mg/dL Calcium (8.4-10.2) mg/dL Total Bilirubin (0.2-1.3) mg/dL AST (17-59) IU/L ALT (<50) IU/L Alkaline Phosphatase (38-126) U/L Total Protein (6.3-8.2) g/dL Albumin (3.5-5.0) g/dL Globulin (1.7-4.1) g/dL Albumin/Globulin Ratio (1.0-2.8) COVID-19 PCR (Negative) Discharge Plan Departure Patient Disposition: Admitted As Inpatient Clinical Impression: Closed fracture of left hip requiring operative repair Qualifiers: Encounter type: initial encounter Qualified Code(s): S72.002A - Fracture of unspecified part of neck of left femur, initial encounter for closed fracture Discharge Date/Time: 02/05/20 18:45 Referrals: Diego Gillespie MD [Primary Care Provider] - Admit Date/Time: 02/05/20 18:19 Admit Provider: Wojciech Tenorio <Bouchra Bain MD - Last Filed: 02/05/20 23:56> Cosign ED Attending Soy Attestation: I was immediately available in the department for consultation throughout this patient's visit. I agree with documentation as above. Bouchra Bain MD
[2020-02-05 17:09] LABS: COVID19 -Nasal RAPID Negative (Negative)
[2020-02-05] MEDS: fentaNYL 100 MCG/2 ML INJ 75 MCG IV (17:53)
[2020-02-05] MEDS: PHYTONADIONE (VIT K1) 5 MG TABLET 10 MG PO (18:45)
--- NOTE | 2020-02-05 20:08 | P.CONS_ITS ---
History of Present Illness Consult details Date Patient Seen: 02/05/20 Time Patient Seen: 20:08 Chief complaint: possible fractured hip Reason for consult: Left hip fracture Requesting provider: Wojciech Tenorio Narrative: 79-year-old gentleman admitted to the hospital today. Patient tripped over uneven asphalt causing a twisting injury as well as a fall. Patient fell on his left hip and was unable to get up and bear weight. Denies any other injury from the fall. Denies any loss of consciousness. Denies hitti ng his head. Before the fall, patient states that he was ambulating quite well. Meds Home Medications and Allergies Home Medications Medication Instructions Recorded Confirmed Type Fish Oil 1,000 mg PO DAILY #0 12/27/11 09/16/18 History anastrozole 0.5 mg PO 2XW 09/16/18 09/16/18 History carvedilol 25 mg PO BID 09/16/18 09/16/18 History levothyroxine 50 mcg PO DAILY 09/16/18 09/16/18 History lisinopril 10 mg PO BID 09/16/18 09/16/18 History spironolactone 12.5 mg PO BID 09/16/18 09/16/18 History testosterone 1 applic TOPICAL DIRECTED 09/16/18 09/16/18 History thyroid (pork) 45 mg PO DAILY 09/16/18 09/16/18 History furosemide 60 mg PO DAILY #0 tab 09/19/18 09/16/18 Rx lisinopril 5 mg PO DAILY #30 tab 09/19/18 Rx warfarin [Coumadin] 2.5 mg PO 1700 #30 tab 09/19/18 Rx Allergies Allergy/AdvReac Type Severity Reaction Status Date / Time No Known Drug Allergies Allergy Verified 02/05/20 15:51 Review of Systems Review of Systems ROS: Yes All systems reviewed with the patient and are negative except as otherwise documented Exam Vital Signs (past 8 hours): - 02/05/20 15:45 02/05/20 16:30 02/05/20 16:47 Temperature 98.4 F Pulse Rate 71 69 Pulse Rate [Left Dorsalis Pedis] 71 Respiratory Rate 14 19 Blood Pressure 123/76 Pulse Oximetry 95 95 02/05/20 17:00 02/05/20 17:57 Temperature Pulse Rate 69 69 Pulse Rate [Left Dorsalis Pedis] Respiratory Rate 17 20 Blood Pressure 116/71 Pulse Oximetry 93 97 Oxygen Delivery Method Room Air Narrative Exam Narrative: The patient is alert and oriented x3. No apparent distress. Resting comfortably in his bed. On examination of the lower extremities the left leg is shortened and rotated. Positive dorsiflexion and plantar flexion. Palpable pedal pulses. No sign of any injury to the ankle or knee. No ankle or knee swelling or instability. Compartments are soft. Nontender to palpation to the calf. Patient has normal range of motion of the wrist fingers and elbow. Signs of some rotator cuff arthropathy to the right shoulder which is longstanding. No sign of any upper extremity injuries. Objective Labs Result Diagrams: 02/05/20 16:30 02/05/20 16:30 Labs: Laboratory Results - last 24 hr 02/05/20 02/05/20 02/05/20 15:45 16:30 16:30 WBC 8.1 RBC 4.55 Hgb 14.7 Hct 43.4 MCV 95.4 MCH 32.3 MCHC 33.9 RDW 15.7 H Plt Count 159 Neut % (Auto) 80.5 H Lymph % (Auto) 12.1 L [place] % (Auto) 6.2 Eos % (Auto) 0.5 L Baso % (Auto) 0.7 Neut # (Auto) 6500 Lymph # (Auto) 1000 L [place] # (Auto) 500 Eos # (Auto) 0 Baso # (Auto) 100 PT INR APTT Sodium 132 L Potassium 4.6 Chloride 100 Carbon Dioxide 24 BUN 40 H Creatinine 1.80 H Estimated GFR 36.5 L BUN/Creatinine Ratio 22.2 H Glucose 123 H Calcium 9.5 Total Bilirubin 1.0 AST 37 ALT 29 Alkaline Phosphatase 63 Total Protein 6.7 Albumin 3.9 Globulin 2.8 Albumin/Globulin Ratio 1.4 COVID-19 PCR Negative 02/05/20 16:30 WBC RBC Hgb Hct MCV MCH MCHC RDW Plt Count Neut % (Auto) Lymph % (Auto) [place] % (Auto) Eos % (Auto) Baso % (Auto) Neut # (Auto) Lymph # (Auto) [place] # (Auto) Eos # (Auto) Baso # (Auto) PT 43.4 H INR 3.8 H APTT 40 H D Sodium Potassium Chloride Carbon Dioxide BUN Creatinine Estimated GFR BUN/Creatinine Ratio Glucose Calcium Total Bilirubin AST ALT Alkaline Phosphatase Total Protein Albumin Globulin Albumin/Globulin Ratio COVID-19 PCR Assessment & Plan Assessment & Plan narrative: Patient with a left femoral neck fracture that will require a left hip hemiarthroplasty. The patient's INR is long enough then we will plan on doing surgery tomorrow sometime in the late afternoon. We will recheck his INR in the morning and then reassess possible surgery. Time Spent With Patient Time with patient: less than 15 minutes
--- NOTE | 2020-02-05 20:46 | PM.HP.1 ---
History of Present Illness History of Present Illness Date Patient Seen: 02/05/20 Time Patient Seen: 19:46 Chief complaint: possible fractured hip Narrative: This is an 79 year old male with a new left hip intertrochanteric fracture. He was walking on an asphalt driveway, very near his car, when he fell. He cannot recall if he tripped or simply fell. His left hip was painful so he dragged himself to the car and drove 4 miles to his cousin's house where his family members called for an ambulance. His x-ray appears to show an intertrochanteric fracture of the left hip. He will be going for hip surgery with Dr. Sampson tomorrow. His INR is 3.8 so he is receiving vitamin K 10 mg IV tonight. He drinks alcohol only rarely. His EKG is a paced rhythm. He has a chronically enlarged left knee appearance. At baseline he is treated for congestive heart failure, hypertension, hypothyroidism and atrial fibrillation. Patient History Medical History Atrial fibrillation (Acute) Cardiac valvular malformation (Acute) Congestive heart failure (Acute) Current use of halfway anticoagulation (Acute) Hypertension (Acute) Hypothyroid (Acute) Pacemaker (Acute) Surgical History (Updated 02/05/20 @ 21:35 by Wojciech Tenorio MD) History of heart valve repair (Acute) Status post biventricular pacemaker (Acute) Status post cardiac catheterization (12/25/07) Status post hernia repair Status post transurethral resection of prostate Family & Social History Family History Father Heart disease Mother Heart disease Social History: household members none Safety & Behavioral: Feels Safe in Current Yes Environment Been Physically Hurt or No Threatened By a Person Suicidal Ideation Description None Suicide Plan Description No Plan Tobacco & Substance use: Smoking Status Never smoker alcohol intake frequency holiday/special occasion Substance Use Type does not use Comment: His backup decision maker is his friend Ramos East. His closest relative is his sister Katy Curtis. He lives alone in his home in [facility] Medications and Allergies Home Medications Medication Instructions Recorded Confirmed Type Fish Oil 1,000 mg PO DAILY #0 12/27/11 09/16/18 History anastrozole 0.5 mg PO 2XW 09/16/18 02/05/20 History carvedilol 25 mg PO BID 09/16/18 02/05/20 History levothyroxine 50 mcg PO DAILY 09/16/18 02/05/20 History lisinopril 10 mg PO BID 09/16/18 09/16/18 History spironolactone 12.5 mg PO BID 09/16/18 02/05/20 History testosterone 1 applic TOPICAL DIRECTED 09/16/18 02/05/20 History thyroid (pork) 45 mg PO DAILY 09/16/18 09/16/18 History furosemide 60 mg PO DAILY #0 tab 09/19/18 02/05/20 Rx lisinopril 5 mg PO DAILY #30 tab 09/19/18 Rx warfarin [Coumadin] 2.5 mg PO 1700 #30 tab 09/19/18 Rx Allergies Allergy/AdvReac Type Severity Reaction Status Date / Time No Known Drug Allergies Allergy Verified 02/05/20 15:51 Review of Systems Review of Systems Narrative: Positive for fall, hip pain and weakness Negative for Fever, Chills, Sweats, abdominal pain, nausea, vomiting, coughing, shortness of breath, bleeding, rashes, dysuria, hematuria, seizures, headaches, sore throat, new allergies, difficulty talking. ROS: Yes All systems reviewed with the patient and are negative except as otherwise documented Exam Vital Signs (past 8 hours): - 02/05/20 15:45 02/05/20 16:30 02/05/20 16:47 Temperature 98.4 F Pulse Rate 71 69 Pulse Rate [Left Dorsalis Pedis] 71 Respiratory Rate 14 19 Blood Pressure 123/76 Pulse Oximetry 95 95 02/05/20 17:00 02/05/20 17:57 02/05/20 19:10 Temperature 98.1 F Pulse Rate 69 69 69 Pulse Rate [Left Dorsalis Pedis] Respiratory Rate 17 20 19 Blood Pressure 116/71 168/108 H Pulse Oximetry 93 97 92 Oxygen Delivery Method Room Air Narrative Exam Narrative: He is alert and oriented x3. No apparent distress. His voice is weak but he is clear minded and the seems to be an exacting historian. Pupils are equally round and reactive to light and accommodation. Extraocular muscles are intact. Sclerae are pink and nonicteric. No lymph nodes are felt head, neck, supraclavicular area. Throat looks normal. JVD is less than 6 cm. No carotid bruits are heard. Heart is regular rate and rhythm without murmur. There is a sternal scar. Lungs are clear to auscultation bilaterally. Abdomen is soft, bowel sounds positive, nontender, no organomegaly. Extremities there is actually no detectable tenderness in the left hip. There is no ankle edema There is no obvious hip length discrepancy. Both knees are quite large, more on the left than the right. Skin has no rash or jaundice. Neuro exam Cranial nerves 2-12 test intact Motor function is 4/5 throughout except for the left leg which is limited by some degree of pain There is no tremor. Objective ECG Impression: Ventricular-paced rhythm Biventricular pacemaker detected Abnormal ECG Imaging Left Hip: Radiologist's impression: PROCEDURE: XR HIP W PEL IF DONE LT 2V INDICATIONS: possible fracute TECHNIQUE: AP pelvis with lateral view(s) of the left hip(s). COMPARISON: None. FINDINGS: Bones: There is suggestion of an acute fracture of left femoral neck with superior migration of left femoral shaft in relation to femoral head. No dislocation. Mild bilateral hip joint osteoarthritic changes are seen. Soft tissues: The visualized bowel gas pattern is normal. No suspicious soft tissue calcifications. IMPRESSION: Finding is suggestive of acute left femoral neck fracture as above. Dictated by: Sanjay Vann M.D. on 02/05/2020 at 16:42 Labs Result Diagrams: 02/05/20 16:30 02/05/20 16:30 Labs: Laboratory Results - last 24 hr 02/05/20 02/05/20 02/05/20 15:45 16:30 16:30 WBC 8.1 RBC 4.55 Hgb 14.7 Hct 43.4 MCV 95.4 MCH 32.3 MCHC 33.9 RDW 15.7 H Plt Count 159 Neut % (Auto) 80.5 H Lymph % (Auto) 12.1 L [place] % (Auto) 6.2 Eos % (Auto) 0.5 L Baso % (Auto) 0.7 Neut # (Auto) 6500 Lymph # (Auto) 1000 L [place] # (Auto) 500 Eos # (Auto) 0 Baso # (Auto) 100 PT INR APTT Sodium 132 L Potassium 4.6 Chloride 100 Carbon Dioxide 24 BUN 40 H Creatinine 1.80 H Estimated GFR 36.5 L BUN/Creatinine Ratio 22.2 H Glucose 123 H Calcium 9.5 Total Bilirubin 1.0 AST 37 ALT 29 Alkaline Phosphatase 63 Total Protein 6.7 Albumin 3.9 Globulin 2.8 Albumin/Globulin Ratio 1.4 COVID-19 PCR Negative 02/05/20 16:30 WBC RBC Hgb Hct MCV MCH MCHC RDW Plt Count Neut % (Auto) Lymph % (Auto) [place] % (Auto) Eos % (Auto) Baso % (Auto) Neut # (Auto) Lymph # (Auto) [place] # (Auto) Eos # (Auto) Baso # (Auto) PT 43.4 H INR 3.8 H APTT 40 H D Sodium Potassium Chloride Carbon Dioxide BUN Creatinine Estimated GFR BUN/Creatinine Ratio Glucose Calcium Total Bilirubin AST ALT Alkaline Phosphatase Total Protein Albumin Globulin Albumin/Globulin Ratio COVID-19 PCR Assessment & Plan Assessment & Plan narrative: Left Hip Fracture, present on admission. Active -pending hip surgery for repair of the fracture with orthopedics on 02/05. -receiving vitamin K to reverse INR of 3.8 pending surgery, repeat INR on 02/05 -NPO after midnight with IV fluid maintenance. Chronic Kidney Disease, present on admission. Chronic -BUN 40 with Creatinine 1.8 on admission 02/04. GFR 36. -continue cautious hydration normal saline 75 mL/hr while NPO Congestive Heart Failure, present on admission. Chronic -continue carvedilol, spironolactone, lisinopril. -hold Lasix while NPO pending surgery Hypertension, present on admission. Chronic -blood pressure on admission varying widely between 116/71 and 168/108. -continue carvedilol, spironolactone, lisinopril. Atrial Fibrillation, present on admission. Chronic -Hold Warfarin pending surgery 02/05 -Continue Carvedilol Hypothyroidism, present on admission. Chronic -continue home dose armor thyroid and Levothyroxine Quality VTE Deep Vein Thrombosis/Pulmonary Embolism Present on Admission: No
[2020-02-05] MEDS: HYDROMORPHONE 1 MG INJ 0.5 MG IV (21:05)
[2020-02-05] MEDS: carvediloL 25 MG TABLET PO (21:16)
[2020-02-05] MEDS: ACETAMINOPHEN 325 MG TABLET 650 MG PO (21:16)
[2020-02-05] MEDS: DEXTROSE 5%-0.9% NS 1,000 ML 80 ML IV (21:16)
[2020-02-05] MEDS: SPIRONOLACTONE 25 MG TABLET 12.5 MG PO (21:17)
[2020-02-05] MEDS: lisinopriL 20 MG TABLET 10 MG PO (23:35)
[2020-02-06] VITALS (19 sets, daily range): BP systolic 76–164; BP diastolic 40–101; PULSE 69–72; RESP 11–20; TEMP 35.9–36.9; O2SAT 92–97
--- NOTE | 2020-02-06 | DI.RAD.S_ITS ---
PROCEDURE: XR PELVIS 1-2V INDICATIONS: INTRA OPERATIVE LEFT HIP TECHNIQUE: Intra-operative view of the pelvis and hip acquired. COMPARISON: [facility], CR, XR HIP W PEL IF DONE LT 2V, 02/05/2020, 16:02. FINDINGS: Bones: Intraoperative devices prior to placement of arthroplasty prostheses are in expected positions. No fractures or suspicious bony lesions. Soft tissues: Overlying surgical retractors are present, along with other intraoperative changes. IMPRESSION: Normal intraoperative examination. Dictated by: Suresh Leon M.D. on 02/06/2020 at 18:54 Approved by: Suresh Leon M.D. on 02/06/2020 at 18:54
--- NOTE | 2020-02-06 | DI.RAD.S_ITS ---
PROCEDURE: XR PELVIS 1-2V INDICATIONS: post operative left hip TECHNIQUE: 1 view of the lower pelvis acquired. COMPARISON: [facility], , XR PELVIS 1-2V, 02/06/2020, 19:25. FINDINGS: Bones: Patient is status post left hip arthroplasty, with hardware components in expected positions. The hip joint appears congruent. The visualized bony structures appear intact. Soft tissues: Overlying postoperative changes are noted. No suspicious soft tissue densities. IMPRESSION: Left total hip arthroplasty, normal anatomic alignment established. Dictated by: Brandon Joaquin M.D. on 02/06/2020 at 21:06 Approved by: Brandon Joaquin M.D. on 02/06/2020 at 21:06
[2020-02-06] MEDS: ACETAMINOPHEN 325 MG TABLET 650 MG PO ×3 (00:14→09:33)
[2020-02-06] MEDS: HYDROMORPHONE 0.5 MG INJ IV (05:09)
[2020-02-06 05:19] LABS: Add Manual Diff / Slide Review NO; Basophils Absolute Auto 0 /uL (0-100); Basophils Percent Auto 0.4 % (0-2); Eosinophils Absolute Auto 100 /uL (0-450); Hematocrit 41.9 % (41-53); Hemoglobin 13.9 g/dL (13.5-17.5); Lymphocytes Absolute Auto 1200 /uL (1100-4500); Lymphocytes Percent Auto 11.3 % (25-40); Mean Corpuscular HGB Conc 33.3 % (30-36); Mean Corpuscular Hemoglobin 31.6 PG (26-34); Mean Corpuscular Volume 95.1 fL (80-100); Monocytes Absolute Auto 800 /uL (0-900); Neutrophils Absolute Auto 8900 /uL (1500-7000); Neutrophils Percent Auto 80.3 % (50-75); Platelet Count 151 X10^3/uL (150-400); Red Blood Cell Count 4.41 X10^6/uL (4.5-5.9); Red Cell Distribution Width 15.9 % (11.6-14.8); White Blood Cell Count 11.1 X10^3/uL (4.5-11.0)
[2020-02-06 05:23] LABS: Blood Urea Nitrogen 37 mg/dL (9-20); Calcium 9.1 mg/dL (8.4-10.2); Carbon Dioxide 25 mmol/L (22-32); Chloride 100 mmol/L (98-107); Estimated Glomerular Filt Rate 39.5 mL/min (>60); Glucose 141 mg/dL (80-110); HEMOLYSIS < 15 (0-50); Potassium 4.3 mmol/L (3.4-5.1); Sodium 131 mmol/L (137-145)
[2020-02-06 05:24] LABS: Prothrombin Time 34.8 SECONDS (10.1-12.7)
--- NOTE | 2020-02-06 07:51 | PM.PN.1 ---
Subjective Subjective Date Patient Seen: 02/06/20 Interval history: Dion Torres is an 79-year-old male with a past medical history significant for hypertension, paroxysmal atrial fibrillation status post pacemaker, systolic congestive heart failure, chronic kidney disease stage 3 and hypothyroidism who presented to the ED after sustaining a ground level fall with left hip pain and inability to ambulate. The patient is resting in bed comfortably. He has no complaints. He has no significant pain at left hip unless he moves. He denies headache, shortness of breath, chest pain, abdominal pain, nausea, vomiting, fever, chills, dysuria, diarrhea or constipation. He is voiding via Gee catheter without difficulty. Plan to reverse warfarin with vitamin K and FFP with tentative surgical repair later this afternoon. Exam Vital Signs (past 8 hours): - 02/06/20 00:15 02/06/20 04:40 Temperature 97.3 F L Pulse Rate 70 Respiratory Rate 20 Blood Pressure 109/68 Pulse Oximetry 92 94 Oxygen Delivery Method Room Air Narrative Exam Narrative: General: Elderly male lying in bed and in no acute distress, well-developed, well-nourished, appropriately interactive. HEENT: Normocephalic, atraumatic. External ears without defect. Pupils equal, round, and reactive to light. Anicteric sclerae, moist conjunctivae, and no lid lag. Oropharynx free of erythema and cobble stoning with moist mucosa. Neck: Supple with full range of motion. No lymphadenopathy or thyromegaly. Cardiovascular: Regular rate and rhythm without murmurs, rubs, or gallops appreciated Pulmonary: Clear to auscultation bilaterally without crackles, wheezes, or rhonchi. Normal respiratory effort with no use of accessory muscles. Abdomen: Soft, bowel sounds present, nontender, nondistended. No hepatosplenomegaly or masses appreciated. Extremities: No clubbing, cyanosis, or edema. Left leg externally rotated and shortened. Skin: Normal temperature, turgor, and texture; no rash, ulcers, or subcutaneous nodules appreciated. Neurological: Cranial nerves grossly intact. Psychiatric: Normal mood and affect. Alert and oriented to person, place, and time. Mild cognitive impairment with short-term memory recall deficit Objective Labs Result Diagrams: 02/07/20 04:50 02/07/20 04:50 Labs: Laboratory Results - last 24 hr 02/05/20 02/05/2002/04/20 15:45 16:30 16:30 WBC 8.1 RBC 4.55 Hgb 14.7 Hct 43.4 MCV 95.4 MCH 32.3 MCHC 33.9 RDW 15.7 H Plt Count 159 Neut % (Auto) 80.5 H Lymph % (Auto) 12.1 L [place] % (Auto) 6.2 Eos % (Auto) 0.5 L Baso % (Auto) 0.7 Neut # (Auto) 6500 Lymph # (Auto) 1000 L [place] # (Auto) 500 Eos # (Auto) 0 Baso # (Auto) 100 PT INR APTT Sodium 132 L Potassium 4.6 Chloride 100 Carbon Dioxide 24 BUN 40 H Creatinine 1.80 H Estimated GFR 36.5 L BUN/Creatinine Ratio 22.2 H Glucose 123 H Calcium 9.5 Total Bilirubin 1.0 AST 37 ALT 29 Alkaline Phosphatase 63 Total Protein 6.7 Albumin 3.9 Globulin 2.8 Albumin/Globulin Ratio 1.4 COVID-19 PCR Negative 02/05/20 02/06/20 02/06/20 16:30 04:51 04:51 WBC 11.1 H RBC 4.41 L Hgb 13.9 Hct 41.9 MCV 95.1 MCH 31.6 MCHC 33.3 RDW 15.9 H Plt Count 151 Neut % (Auto) 80.3 H Lymph % (Auto) 11.3 L [place] % (Auto) 7.0 Eos % (Auto) 1.0 L Baso % (Auto) 0.4 Neut # (Auto) 8900 H Lymph # (Auto) 1200 [place] # (Auto) 800 Eos # (Auto) 100 Baso # (Auto) 0 PT 43.4 H INR 3.8 H APTT 40 H D Sodium 131 L Potassium 4.3 Chloride 100 Carbon Dioxide 25 BUN 37 H Creatinine 1.68 H Estimated GFR 39.5 L BUN/Creatinine Ratio 22.0 Glucose 141 H Calcium 9.1 Total Bilirubin AST ALT Alkaline Phosphatase Total Protein Albumin Globulin Albumin/Globulin Ratio COVID-19 PCR 02/06/20 04:51 WBC RBC Hgb Hct MCV MCH MCHC RDW Plt Count Neut % (Auto) Lymph % (Auto) [place] % (Auto) Eos % (Auto) Baso % (Auto) Neut # (Auto) Lymph # (Auto) [place] # (Auto) Eos # (Auto) Baso # (Auto) PT 34.8 H D INR 3.0 H APTT Sodium Potassium Chloride Carbon Dioxide BUN Creatinine Estimated GFR BUN/Creatinine Ratio Glucose Calcium Total Bilirubin AST ALT Alkaline Phosphatase Total Protein Albumin Globulin Albumin/Globulin Ratio COVID-19 PCR Assessment & Plan Assessment & Plan narrative: Dion Torres is an 79-year-old male with a past medical history significant for hypertension, paroxysmal atrial fibrillation status post pacemaker, systolic congestive heart failure, chronic kidney disease stage 3 and hypothyroidism who presented to the ED after sustaining a ground level fall with left hip pain and inability to ambulate. 1. Acute pathological left hip fracture, present on admission. Active. -Patient sustained a mechanical ground level fall and presented unable to ambulate with left hip pain. -Left hip x-ray demonstrated acute left femoral neck fracture as above. -Held warfarin pending surgery. Initial INR supratherapeutic at 3.8. Received vitamin K 10 mg PO x1 in ED to reverse warfarin. Ordered additional vitamin K 5 mg IV x1 and 2 units FFP. Recheck INR after received FFP. Goal INR 1.5 for surgery. -Continue calcium and vitamin D3 supplementation. Patient will need to be treated for osteoporosis as an outpatient by either PCP or Orthopedic surgery. -Consulted Orthopedic surgery, Dr. Byrd, who plans to perform surgical pair of left hip later this afternoon. Patient has been NPO since midnight. 2. Chronic kidney disease stage 3, present on admission. Stable. -Initial creatinine 1.8 and GFR 37 on admission. Unknown baseline creatinine but appears to be 1.5-1.6 in 2019. -Avoid nephrotoxic agents. -Continue to dental IV fluid hydration with D5 normal saline 80 mL/hr while NPO. -Continue to monitor creatinine daily. 3. Systolic congestive heart failure, chronic, present on admission. Stable. -Does not represent CHF exacerbation. -Continue home medications carvedilol 25 mg twice daily, lisinopril 10 mg twice daily and spironolactone 12.5 mg daily. -Held furosemide while NPO and pending surgery. -Continue to monitor strict I&O and daily weights. 4. Hypertension, chronic, present on admission. Stable -Continue home medications carvedilol 25 mg twice daily, lisinopril 10 mg twice daily and spironolactone 12.5 mg daily. 5. Paroxysmal atrial fibrillation status post pacemaker, chronic, present on admission. Stable. -Held Warfarin pending surgery 02/05 -Continue carvedilol 25 mg twice daily. Held warfarin pending surgery. Initial INR supratherapeutic at 3.8. Received vitamin K 10 mg PO x1 in ED to reverse warfarin. Ordered additional vitamin K 5 mg IV x1 and 2 units FFP. Recheck INR after received FFP. Goal INR 1.5 for surgery. 6. Hypothyroidism, chronic, present on admission. Stable. -Continue home dose of levothyroxine 50 mcg daily. Code status: Full code VTE prophylaxis: SCDs, held chemical prophylaxis with warfarin due to pending surgical repair Disposition: Patient will discharge in several days after surgical repair of left hip and will likely retirement facility for rehabilitation. Quality VTE Deep Vein Thrombosis/Pulmonary Embolism Present on Admission: No
--- NOTE | 2020-02-06 08:07 | P.PN_ITS ---
Subjective Subjective Date Patient Seen: 02/06/20 Time Patient Seen: 08:07 Interval history: Pain controlled overnight with Tylenol. Sitting up in bed comfortably. IM working on reversing INR. Currently 3.0 Exam Vital Signs (past 8 hours): - 02/06/20 00:15 02/06/20 04:40 Temperature 97.3 F L Pulse Rate 70 Respiratory Rate 20 Blood Pressure 109/68 Pulse Oximetry 92 94 Oxygen Delivery Method Room Air Narrative Exam Narrative: NV intact in LLE, no skin breaks. Extermity held in a shortened and externally rotated position Objective Labs Result Diagrams: 02/06/20 04:51 02/06/20 04:51 Labs: Laboratory Results - last 24 hr 02/05/20 02/05/20 02/05/20 15:45 16:30 16:30 WBC 8.1 RBC 4.55 Hgb 14.7 Hct 43.4 MCV 95.4 MCH 32.3 MCHC 33.9 RDW 15.7 H Plt Count 159 Neut % (Auto) 80.5 H Lymph % (Auto) 12.1 L [place] % (Auto) 6.2 Eos % (Auto) 0.5 L Baso % (Auto) 0.7 Neut # (Auto) 6500 Lymph # (Auto) 1000 L [place] # (Auto) 500 Eos # (Auto) 0 Baso # (Auto) 100 PT INR APTT Sodium 132 L Potassium 4.6 Chloride 100 Carbon Dioxide 24 BUN 40 H Creatinine 1.80 H Estimated GFR 36.5 L BUN/Creatinine Ratio 22.2 H Glucose 123 H Calcium 9.5 Total Bilirubin 1.0 AST 37 ALT 29 Alkaline Phosphatase 63 Total Protein 6.7 Albumin 3.9 Globulin 2.8 Albumin/Globulin Ratio 1.4 COVID-19 PCR Negative 02/05/20 02/06/20 02/06/20 16:30 04:51 04:51 WBC 11.1 H RBC 4.41 L Hgb 13.9 Hct 41.9 MCV 95.1 MCH 31.6 MCHC 33.3 RDW 15.9 H Plt Count 151 Neut % (Auto) 80.3 H Lymph % (Auto) 11.3 L [place] % (Auto) 7.0 Eos % (Auto) 1.0 L Baso % (Auto) 0.4 Neut # (Auto) 8900 H Lymph # (Auto) 1200 [place] # (Auto) 800 Eos # (Auto) 100 Baso # (Auto) 0 PT 43.4 H INR 3.8 H APTT 40 H D Sodium 131 L Potassium 4.3 Chloride 100 Carbon Dioxide 25 BUN 37 H Creatinine 1.68 H Estimated GFR 39.5 L BUN/Creatinine Ratio 22.0 Glucose 141 H Calcium 9.1 Total Bilirubin AST ALT Alkaline Phosphatase Total Protein Albumin Globulin Albumin/Globulin Ratio COVID-19 PCR 02/06/20 04:51 WBC RBC Hgb Hct MCV MCH MCHC RDW Plt Count Neut % (Auto) Lymph % (Auto) [place] % (Auto) Eos % (Auto) Baso % (Auto) Neut # (Auto) Lymph # (Auto) [place] # (Auto) Eos # (Auto) Baso # (Auto) PT 34.8 H D INR 3.0 H APTT Sodium Potassium Chloride Carbon Dioxide BUN Creatinine Estimated GFR BUN/Creatinine Ratio Glucose Calcium Total Bilirubin AST ALT Alkaline Phosphatase Total Protein Albumin Globulin Albumin/Globulin Ratio COVID-19 PCR Assessment & Plan Assessment & Plan narrative: Patient is a 79-year-old male who had a ground level fall yesterday which was mechanical in nature. He fell onto his left hip and had immediate onset of pain and inability to bear weight. He does not have a previous history of hip or groin pain. He uses a cane to ambulate in the community sometimes. Did not have cane with him yesterday when he fell. I had a long discussion with the patient regarding the risks and benefits of surgery including the risk of dislocations, fractures, infection, damage to local st ructures such as vessels and nerves, DVT, PE, etc. patient demonstrates understanding of the risks and benefits. Plan will be for a left hip hemiarthroplasty, cemented hemiarthroplasty as backup. - Reverse INR. Goal of 1.5 - NPO - NWB LLE - OCTOR today COVID-19 COVID-19 status: Negative Result date/Date tested (Pos, Neg/Pending): 02/05/20 Time Spent With Patient Time with patient: 15-24 minutes Quality VTE Deep Vein Thrombosis/Pulmonary Embolism Present on Admission: No
[2020-02-06] MEDS: DEXTROSE 5%-0.9% NS 1,000 ML 80 ML IV (08:43)
--- NOTE | 2020-02-06 09:29 | PC.NURSE ---
Day shift: Per Dr Caputo ok to give Pt his PO meds this AM.
[2020-02-06] MEDS: SPIRONOLACTONE 25 MG TABLET 12.5 MG PO (09:34)
[2020-02-06] MEDS: carvediloL 25 MG TABLET PO (09:35)
[2020-02-06] MEDS: LEVOTHYROXINE 50 MCG TABLET PO (09:35)
[2020-02-06] MEDS: THYROID, PORK 30 MG TABLET 45 MG PO (10:18)
[2020-02-06] MEDS: PHYTONADIONE (VIT K1) 5 MG in DEXTROSE 5 % IN WATER 50 ML 101 ML IV (12:41)
--- NOTE | 2020-02-06 12:49 | PC.NURSE ---
Day shift: Per Dion today it is ok for Pt information to be given to Ramos Larsen. Ramos is listed as the only contact for Dion and Ramos said that he is the only person Dion has.
[2020-02-06 13:05] LABS: INR 2.3 (0.9-1.3)
--- NOTE | 2020-02-06 14:15 | CM.IDA ---
Initial DCP Assessment Note Patient is an 79 yo male, resident of [place]. Patient presents after GLF and subsequent hip fx, scheduled for hip surgery/repair w/ Dr Byrd today PCP: Dr Diego Gillespie Payer: KATHRYN/Mimi mcgrath Prosser Reviewed chart. Patient last admitted September 2018 after a fall, notes from the Care Management team indicate APS report was submitted for self neglect. Patient was living alone at that time and only contact was friend Ramos Landin P# [phone] (prior notes) number on chart: P# [phone]. These facts appear to remain the same. Patient off the floor for hip surgery today, will plan to assess needs further POD#1, therapy evals are pending and will be helpful in determining safest recommended dispo ONESIMO Sheppard
[2020-02-06 17:40] LABS: INR 1.9 (0.9-1.3); Prothrombin Time 21.8 SECONDS (10.1-12.7)
[2020-02-06] MEDS: CEFAZOLIN 2 GM/100 ML FROZ.PIGGY IV ×2 (18:05→21:47)
--- NOTE | 2020-02-06 18:22 | PM.PREOP ---
Pre-operative Note COVID-19 COVID-19 status: Negative Result date/Date tested (Pos, Neg/Pending): 02/05/20 Interval Note History & Physical reviewed/Exam performed by Physician: Yes Changes to H&P: No H&P completed within 30 days and has changed as indicated here:: I had a long discussion with the patient regarding the risks and benefits of surgery. Risks include fracture, damage to local structures such as vessels and nerves, need for future surgery, infection, dislocation, DVT, PE, , etc. Patient demonstrates understanding of the risks and benefits and wishes to proceed with left hip hemiarthroplasty. In addition, patient's INR is currently 1.9 and he has FFP on board. I think the benefit of INR goal of 1.5 is outweighed by the risks of waiting another day to mobilize patient. Plan for left hip hemiarthroplasty
--- NOTE | 2020-02-06 19:12 | SUR.OPER ---
Lateral on padded OR bed. Gel axillary roll. Arms secured on padded armboard with pillow supporting top arm. Padded hip positioner braces x4 - anterior and posterior chest and pelvis. Additional gel pad used anterior pelvis. Gel pad under bottom leg from knee to foot and secured with tape over sheet.
[2020-02-06] MEDS: MORPHINE 4 MG/ML INJ IV (19:34)
[2020-02-06] MEDS: ROPIVACAINE 0.5% PF 20ML 60 ML, MORPHINE 4 MG, KETOROLAC 30 MG INJ (19:36)
[2020-02-06] MEDS: ACETAMINOPHEN IV 1,000 MG/100 ML VIAL 400 MG IV (19:44)
--- NOTE | 2020-02-06 20:13 | PM.OP.1 ---
Operative Date/Time/Diagnoses Date of procedure: 02/06/20 Time of procedure: 20:13 Pre-op diagnosis: Displaced intra-capsular femoral neck fracture Post-op diagnosis: same Procedure & Clinicians Procedure: Left Hip hemiarthroplasty Same procedure as scheduled: Yes Indications: Displaced intracapsular femoral neck fracture Surgeon: Mathew Byrd Business Banking Sales Assistant: Mati Molina Anesthesia Type: General Operative Notes Findings: Displaced intracapsular femoral neck fracture, intracapsular hematoma Closure Type: primary Specimen(s): none sent Prosthetic devices, grafts, tissues, transplants, or devices: Dunlap and Nephew size 17 standard offset Synergy Press-Fit Dunlap and Nephew crabtree the medial pole of 59 mm head with a 12/14 +0 mm sleeve Estimated Blood Loss (mL): 100 Blood products transfused: none Procedure in detail: Patient was met in the preoperative holding area where the site and side of surgery were marked by MD. The risks and benefits of surgery were reviewed with the patient patient demonstrated understanding of the risks and benefits. Informed consent was reviewed and signed. All last minute questions were answered. Patient was then brought back in the operating room where he was induced under general anesthesia on the gurney. He was then transferred onto the operating room table and placed in the right lateral decubitus position all bony prominences were well padded. The left hip was then prepped and draped in normal sterile fashion. A surgical time-out was performed verifying the site and side of surgery as well as the name of the patient. A 7 cm long incision starting from the bony prominence over the greater trochanter aiming approximately 45? proximal and posterior was then made in the skin with a 10. Blade. Electrocautery was used to gain hemostasis and sharp dissection down to the superior gluteal fascia and IT band was then performed. A new 10. Blade was then used to sharply incise the superior gluteal fascia and ITB and. A Cobra retractor was then placed beneath the gluteus medius and the piriformis was identified and released off the back of the greater trochanter this piriformis was tagged. The gluteus minimus was then elevated and the Cobra was placed underneath the gluteus minimus giving us good capsular exposure. An L-shaped capsulotomy was performed at which point dark hematoma was encountered and suctioned away. Great care was used to leave the labrum intact. Visualized was a femoral neck fracture. There is quite a bit interdigitation between the femoral head piece and the femoral neck. A oscillating saw was then used to simplify the fracture pattern thereby allowing us to elevate the femur up and out of the wound. The head was then removed with a tenaculum. All bony fragments were then carefully removed from the acetabular cup. A freshen up cut was then performed of the femoral neck with a oscillating saw. The head was sized to a size 59 mm head. A box osteotome was used to gain access the femoral canal followed by reamers on power starting with a size 11 and eventually ending up at a size 16. Broaches were used from size 11 up to a size 16 at size 16 we calcar planed off the component we then trialed with a standard offset neck and a 59+ 0 head the patient had excellent stability on the table in position of sleep as well as hip flexion 90? and internal rotation to approximately 85? before starting to sublux a. X-ray was brought in determined canal fit as well as leg lengths we will short on leg length and we could also get a little bit better canal fill. Trial components were then removed we reamed up to a size 17 and a size 17 broach was then malleted into place this add a couple mm proud of where the 16 mm broach ended up. We selected a size 17 standard offset Synergy stem with a 59+ 0 head. The surgical wound was thoroughly irrigated with normal saline the femoral stem was then malleted into place and found to be stable. The 59 mm head with a +0 sleeve was then malleted onto the trunnion and the hip was reduced into the socket. Betadine solution was used to irrigate the wound this allowed to sit for several minutes prior to sectioning away and copious irrigation with normal saline. The capsulotomy was then closed with the Ethibond in a running fashion. A drill hole was then placed in the superior posterior aspect of the greater trochanter and 1 limb of the FiberWire stitch for the piriformis was passed through this drill hole with a Hook suture Passer. The other limb was passed through the abductor tendon with a free needle and the piriformis was tied down this fashion. The ITB band was then closed with 0 Vicryl interrupted fashion followed by an 0 Vicryl in a running locking fashion the superior gluteal fascia. The subcutaneous tissue was then closed with 2 O Vicryl in interrupted fashion followed by ninfa on skin an Aquacel dressing. Complications: none Post-operative Condition: stable Disposition: PACU Plan for aftercare: Patient can resume his warfarin tomorrow for DVT prophylaxis. Weightbearing as tolerated left lower extremity. Posterior hip precautions.
[2020-02-06 21:29] LABS: Add Manual Diff / Slide Review NO; Basophils Absolute Auto 0 /uL (0-100); Basophils Percent Auto 0.2 % (0-2); Eosinophils Absolute Auto 300 /uL (0-450); Eosinophils Percent Auto 2.8 % (2-4); Hematocrit 42.8 % (41-53); Hemoglobin 14.2 g/dL (13.5-17.5); Lymphocytes Absolute Auto 900 /uL (1100-4500); Lymphocytes Percent Auto 9.5 % (25-40); Mean Corpuscular HGB Conc 33.2 % (30-36); Mean Corpuscular Volume 96.4 fL (80-100); Monocytes Absolute Auto 900 /uL (0-900); Monocytes Percent Auto 9.3 % (3-14); Neutrophils Absolute Auto 7200 /uL (1500-7000); Neutrophils Percent Auto 78.2 % (50-75); Platelet Count 125 X10^3/uL (150-400); Red Blood Cell Count 4.44 X10^6/uL (4.5-5.9); White Blood Cell Count 9.2 X10^3/uL (4.5-11.0)
[2020-02-06] MEDS: LACTATED RINGERS 1,000 ML 125 ML IV (21:47)
[2020-02-07] VITALS (9 sets, daily range): BP systolic 105–141; BP diastolic 67–90; PULSE 69–77; RESP 16–19; TEMP 36.6–37.1; O2SAT 93–98
--- NOTE | 2020-02-07 04:00 | PC.NURSE ---
Pt. woke up coughing & noted some upper airway wheezing. Dr. Tenorio notified ordered to stop IVF done & saline locked IV. Inc. of urine linen changed & C/O pain will admin. pain med. & monitor.
[2020-02-07] MEDS: OXYCODONE IR 5 MG TABLET PO ×3 (04:08→22:00)
--- NOTE | 2020-02-07 04:25 | PC.NURSE ---
C/O hunger states I did not eat for a few days now. Provided with 1/2 turkey sandwich, cheese, yogurt & 2 servings of orange juice. Ate all his food, no C/O nausea. Will cont. POC & monitor.
[2020-02-07 05:24] LABS: Hematocrit 42.8 % (41-53); Hemoglobin 14.3 g/dL (13.5-17.5)
[2020-02-07 05:33] LABS: INR 1.4 (0.9-1.3); Prothrombin Time 16.7 SECONDS (10.1-12.7)
[2020-02-07] MEDS: CEFAZOLIN 2 GM/100 ML FROZ.PIGGY IV (05:36)
[2020-02-07] MEDS: SODIUM CHLORIDE 0.9% FLUSH 10 ML IV ×3 (05:36→21:29)
[2020-02-07 05:40] LABS: BUN Creatinine Ratio 20.9 (6-22); Blood Urea Nitrogen 34 mg/dL (9-20); Calcium 8.9 mg/dL (8.4-10.2); Carbon Dioxide 26 mmol/L (22-32); Chloride 100 mmol/L (98-107); Estimated Glomerular Filt Rate 40.9 mL/min (>60); Glucose 128 mg/dL (80-110); HEMOLYSIS < 15 (0-50); Magnesium 2.1 mg/dL (1.6-2.3); Potassium 4.2 mmol/L (3.4-5.1); Sodium 133 mmol/L (137-145)
[2020-02-07] MEDS: THYROID, PORK 30 MG TABLET 45 MG PO (06:25)
[2020-02-07] MEDS: LEVOTHYROXINE 50 MCG TABLET PO (06:28)
[2020-02-07] MEDS: carvediloL 25 MG TABLET PO ×2 (07:53→21:28)
[2020-02-07] MEDS: lisinopriL 20 MG TABLET 10 MG PO (07:54)
[2020-02-07] MEDS: SPIRONOLACTONE 25 MG TABLET 12.5 MG PO ×2 (07:54→21:28)
[2020-02-07] MEDS: DOCUSATE 100 MG CAPSULE PO ×2 (07:54→21:29)
[2020-02-07] MEDS: HYDROMORPHONE 0.5 MG INJ IV (07:55)
[2020-02-07 09:43] LABS: TSH w/ Reflex to FT4 2.08 uIU/mL (0.47-4.68)
[2020-02-07] MEDS: polyethylene glycoL 3350 17 GM POWD.PACK PO (10:31)
--- NOTE | 2020-02-07 10:35 | PM.PNPO.1 ---
Subjective Subjective Date Patient Seen: 02/07/20 Time Patient Seen: 10:35 Interval history: Patient's pain is moderate. Denies fever chills. No nausea vomiting. Patient does live at home alone. Otherwise without complaints this morning. Exam Vital Signs (past 8 hours): - 02/07/20 03:36 02/07/20 08:14 02/07/20 09:32 Temperature 97.9 F 98 F Pulse Rate 70 70 70 Respiratory Rate 18 17 16 Blood Pressure 130/78 115/67 Pulse Oximetry 98 94 95 Oxygen Delivery Method Room Air Oxygen Flow Rate 0 Narrative Exam Narrative: 79-year-old male resting comfortably in bed in no apparent distress. Left hip dressing is clean, dry and intact. Motor functions intact bilateral lower extremities. Sensation grossly intact to light touch bilateral lower extremities. Both legs are warm and dry. Objective Labs Result Diagrams: 02/07/20 04:50 02/07/20 04:50 Labs: Laboratory Results - last 24 hr 02/06/20 02/06/20 02/06/20 08:09 12:49 17:28 WBC RBC Hgb Hct MCV MCH MCHC RDW Plt Count Neut % (Auto) Lymph % (Auto) [place] % (Auto) Eos % (Auto) Baso % (Auto) Neut # (Auto) Lymph # (Auto) [place] # (Auto) Eos # (Auto) Baso # (Auto) PT 26.0 H D 21.8 H INR 2.3 H 1.9 H Sodium Potassium Chloride Carbon Dioxide BUN Creatinine Estimated GFR BUN/Creatinine Ratio Glucose Calcium Magnesium TSH Blood Type O Negative 02/06/20 02/07/20 02/07/20 21:20 04:50 04:50 WBC 9.2 RBC 4.44 L Hgb 14.2 14.3 Hct 42.8 42.8 MCV 96.4 MCH 32.0 MCHC 33.2 RDW 16.0 H Plt Count 125 L Neut % (Auto) 78.2 H Lymph % (Auto) 9.5 L [place] % (Auto) 9.3 Eos % (Auto) 2.8 Baso % (Auto) 0.2 Neut # (Auto) 7200 H Lymph # (Auto) 900 L [place] # (Auto) 900 Eos # (Auto) 300 Baso # (Auto) 0 PT 16.7 H D INR 1.4 H Sodium Potassium Chloride Carbon Dioxide BUN Creatinine Estimated GFR BUN/Creatinine Ratio Glucose Calcium Magnesium TSH Blood Type 02/07/20 02/07/20 04:50 04:50 WBC RBC Hgb Hct MCV MCH MCHC RDW Plt Count Neut % (Auto) Lymph % (Auto) [place] % (Auto) Eos % (Auto) Baso % (Auto) Neut # (Auto) Lymph # (Auto) [place] # (Auto) Eos # (Auto) Baso # (Auto) PT INR Sodium 133 L Potassium 4.2 Chloride 100 Carbon Dioxide 26 BUN 34 H Creatinine 1.63 H Estimated GFR 40.9 L BUN/Creatinine Ratio 20.9 Glucose 128 H Calcium 8.9 Magnesium 2.1 TSH 2.08 Blood Type Assessment & Plan Post-op Postoperative Procedures: Procedures Operation Date: 02/06/20 14:00 Actual Procedures Side Surgeon p Hip Hemiarthroplasty Left Mathew Byrd MD Postop day 1 status post left hip hemiarthroplasty due to displaced intracapsular femoral neck fracture. Physical therapy. Weightbearing as tolerated left lower extremity. Posterior hip precautions. Discharge home versus [facility] facility postop day 3 secondary to living alone. Quality VTE Deep Vein Thrombosis/Pulmonary Embolism Present on Admission: No
--- NOTE | 2020-02-07 12:14 | PT.IIE ---
Current Diagnoses Pathological fracture, left femur, initial encounter for fracture (02/05/20) Surgery Performed Operation Date: 02/06/20 14:00 Actual Procedures p Hip Hemiarthroplasty(Left) - Mathew Byrd MD Surgical History (Last Updated 02/05/20 @ 21:35 by Wojciech Tenorio MD) History of heart valve repair (Acute) Status post biventricular pacemaker (Acute) Status post cardiac catheterization (12/25/07) Status post hernia repair Status post transurethral resection of prostate Medical History (Last Reviewed 02/05/20 @ 21:28 by Idalia Ku PA-C) Atrial fibrillation (Acute) Cardiac valvular malformation (Acute) Congestive heart failure (Acute) 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 Able to make needs known Mobility and Gait independent for mobility and uses a cane for community ambulation/ uneven surface. Activities of Daily Living and IADL's independent for ADLs and most IADLs. He is able to cook, do laudry and drive. Pt does go to his cousin house everyday for dinner. Prior Functional Level (Other details) pt does use bathroom multiple times at night Social History Household Members none Number of Floors (Floors) One Floor Number of Stairs To Enter/Railing? pt has a ramp entrance Home Environment High Toilet,Walk in Shower Home Equipment Straight Cane,Shower Seat with Backrest,Hand Held Shower, Physiotherapy Practice Manager,Grab Bars In Shower Additional Social History Comment Pt lives alone in [facility] and he stated that his friend Ramos can provide assistance as needed but cannot stay over. Pt has hx of CHF, HTN, hypothyroidism, A-fib, CKD. M2 PT-IP Current Condition Start: 02/07/20 08:57 Freq: NEEDED Status: Active Protocol: Document 02/07/20 11:26 HH (Rec: 02/07/20 12:14 [id number]) Physical Therapy Current Condition Current Condition Evaluation Date 02/07/20 Treatment Diagnosis L hip hemiarthroplasty s/p displaced intracapsular femoral neck fx Onset Date 02/05/20 Precautions Posterior Hip Precautions No Hip Flexion > 90 degrees,No Hip Internal Rotation,No Hip Adduction Other Precautions Posterior hip precautions Weight Bearing Status Weight Bearing Status Weight Bear as Tolerated M3 PT-IP Subjective Start: 02/07/20 08:57 Freq: NEEDED Status: Active Protocol: Document 02/07/20 11:26 (Rec: 02/07/20 12:14 [id number]) Subjective Physical Therapy Visit Type Type Initial Evaluation Visit Start Time 10:32 Visit Stop Time 11:15 Total Visit Minutes 43 Number of SPRINKLER INSPECTOR Visits 0 Physical Therapy Visit Comments Patient Comments I have a lot of pain on my hip Patient Goals To regain his hip strength and mobility and return home. Therapy Pain Assessment Pain When Pain Assessed During Mobility Pain Present Pain Present Pain Reported Location Left Hip Intensity 7 Scale Used Numeric (0 - 10) Description Aching Pain Behaviors Calling Out,Facial Grimacing, Guarding,Holding Area,Moaning Pain Management Techniques Apply Cold,Timing of Activity with Medications M4 PT-IP Mobility and Gait Start: 02/07/20 08:57 Freq: NEEDED Status: Active Protocol: Document 02/07/20 11:26 (Rec: 02/07/20 12:14 [id number]) PT-Bed Mobility Assessment Supine to Sit Supine to Sit Maximum Assistance,1 Person Assistance,Head of Bed Elevated,Bedrails Sit to Supine Sit to Supine Maximum Assistance,2 Person Assistance,Bedrails Scooting Scooting to Edge of Bed Maximum Assistance PT-Transfer Assessment Sit to and From Stand Sit to and from Stand Maximum Assistance,1 Person Assistance,2 Person Assistance ,Use of Upper Extremities Equipment Transfer Assistive Device Gait Belt,Front Wheeled Walker Orthotic/Prosthetic Devices or Brace: No Transfer Ability Level of Assist Maximum Assistance,2 Person Assistance,Use of Upper Extremities Comments Mobility Comments PT was in bed with elevated HOB at 20 degrees upon PT arrival. BP at 109/69 HR 87 pain at 2/10 at rest. This PT went in earlier to provide post op booklet for pt to review but he cannot recall any precautions for this session. Reviewed booklet again prior to mobility assessment. This PT then assisted pt to take off SCD and he was calling out for his L hip pain. Adjusted his HOB to 40 degrees and lowered foot of bed initially, then pt needed max Ax 1 to pivot his L leg and trunk to sit up while pt was screaming for pain. BP at 113/67 in seated and pt rested for 4 mins. This PT then elevated his bed since pt is 6'4 in height. Pt then pushed off from bed and FWW with PT max A x 1 and took approx 8-10 secs to complete. Pt primarily WB through UEs and RLE and he c/o pain 7/10 during WB. HE stated he can only WB 20 % on his left. Pt then requested to sit down after he c/o sligth dizziness. BP was at 97/69 and he rested for 5 mins. RN Sandy came to assist. Pt then stood again with max A x 2 with minimally WB through LLE. Pt stood at bedside for 2 mins and practiced slight lateral weight shift to L then he requested to return to bed after. Pt then sat down with max A x 2 and returned to supine with max A x2 and used of bed pad for repositioning him. Pt appeared very tired and went into sleep immediately. Warm blanket provided and BP at 126/80. Bed alarm activated and SCD in place. Notified nursing to acquire hip abduction pillow since pt has short term memory deficits. Gait Assessment Gait Able to Maintain Weight Bearing Status No During Gait Comments Gait Comments see mobility comments. pt unable to WB on LLE Stair Climbing Assessment Comments Stair Climbing Comments pt does not have stairs PT-Balance Assessment Sitting Balance and Reactions Static Sitting Balance Ability Normal Dynamic Sitting Balance Ability Good Standing Balance and Reactions Static Standing Balance Ability Fair Dynamic Standing Balance Ability Poor Device Used FWW M5 PT-IP Objective Assessments Start: 02/07/20 08:57 Freq: NEEDED Status: Active Protocol: Document 02/07/20 11:26 (Rec: 02/07/20 12:14 [id number]) Orientation Orientation/Cognition Level of Alertness Alert Orientation Name,Age,Birthday,Month,Date, Year,Day of Week,Place, Situation Language Function Ability No Deficits Noted Safety Awareness Decreased Safety Awareness Memory Description Short Term Impaired Comments This PT went in earlier to provide post op booklet for pt to review but he cannot recall any precautions for this session. Reviewed booklet again prior to mobility assessment. Gross Range of Motion Upper Extremity ROM Assessment Within Functional Limits Lower Extremity ROM Assessment Left Impaired Impairments pt presents a significant L knee valgus in supine and standing. Strength Upper Extremity Strength Assessment Within Functional Limits Lower Extremity Strength Assessment Left Impaired Coordination Assessment Gross Coordination Gross Coordination WNL Sensation Assessment Sensation Gross Sensation WNL Muscle Tone Muscle Tone WNL Yes M6 PT-IP Treatment Start: 02/07/20 08:57 Freq: NEEDED Status: Active Protocol: Document 02/07/20 11:26 HH (Rec: 02/07/20 12:14 [id number]) Physical Therapy Treatment Exercises Exercises Ankle Pumps,Gluteal Sets,Quad Sets,Heel Slides Education Education Provided Precautions,Weight Bearing Status,Post-Op Packet,Safety M7 PT-IP Assessment and Plan Start: 02/07/20 08:57 Freq: NEEDED Status: Active Protocol: Document 02/07/20 11:26 HH (Rec: 02/07/20 12:14 [id number]) PT Summary Assessment and Plan Potential Rehabilitation Potential Fair Status of Condition at Evaluation Evolving Summary Impairments Pain,ROM,Strength,Balance, Cognition,Bed Mobility, Transfers,Gait,Activity Tolerance Assessment Summary This is a high complexity evaluation for this 79 yo male s/p L hip hemiarthroplasty ( posterior approach WBAT) s/p displaced intracapsular femoral neck fx after a fall. Pt was independent at baseline with SPC occasionally. Upon assessment, pt has difficulty remembering post op precautions and significant L hip pain upon mobility. He needed max A 2 p for bed mobility and for sit<> stand. Pt can hardly WB on LLE d/t pain and he was extremely tired after attempting sit to stand twice. D/t pt poor short term memory, notifed nurse to acquire abduction pillow. Pt will undoubtedly need extensive skilled rehab to improve his mobility and strength Goals Bed Mobility Goal Minimal Assistance Transfer Goal Minimal Assistance,Front Wheeled Walker Gait Goal Minimal Assistance,Front Wheel Walker Gait Distance 20 Days to Meet Goals 5 Frequency of Treatment Frequency Of Treatment Twice a Day Treatment Plan Physical Therapy Treatment Plan Bed Mobility Training,Transfer Training,Gait Training, Therapeutic Exercise,Balance Retraining,Post Op Education, Discharge Planning,Hot or Cold Pack,Manual Therapy Other Recommendations and Next Treatment check vital signs Focus review post op precautions sit <> stand transfer in possible Recommendations To Nursing Amount of Assist Needed PT/OT Assist Only Discharge Recommendations PT Discharge Recommendations SNF Rehab Transportation Needs at Discharge Wheelchair/Cabulance,Stretcher /Ambulance
--- NOTE | 2020-02-07 12:41 | CM.DPNOTE ---
Addendum entered by ONESIMO Sheppard 02/07/20 15:07: [facility] accepts for admission tomorrow, Sunday. Patient will need updated COVID only if he has not discharged by 1500 tomorrow. GENE Original Note: DCP Cont Patient now POD#1 from hip surgery w/Dr Byrd. Met w/patient this morning, introduced role. patient admits he is very tired but willing to talk. Patient is very pleasant. Patient lives alone, states he sees his friend Ramos often and has breakfast with him often. Patient states he is able to complete most of his ADLs indp. Patient eats his evening meal w/his cousin's dtr Lucila every night. Patient understands he will require skilled rehab upon DC and agreeable to [facility]. Asked if patient had ever completed an application to see if he would qualify for [facility] caregiving ? Patient doesn't remember but states he would be interested in caregivers assisting if he qualified. Patient gives Care Management team permission to contact friend Ramos and/or Lucila P# [phone] as needed for planning purposes. Patient is [place] although A+O. Placed call to December at [facility], requested she consider referral, will f/u after reviewing. ONESIMO Sheppard
--- NOTE | 2020-02-07 13:44 | PM.PN.1 ---
Subjective Subjective Date Patient Seen: 02/07/20 Interval history: Dion Torres is an 79-year-old male with a past medical history significant for hypertension, paroxysmal atrial fibrillation status post pacemaker on warfarin, systolic congestive heart failure, chronic kidney disease stage 3 and hypothyroidism who presented to the ED after sustaining a ground level fall with left hip pain and inability to ambulate. The patient is sleeping in bed comfortably and is easily arousable. Patient reports mild ?soreness? at left hip especially with movement and working with physical and occupational therapy. The patient's left hip pain is controlled with acetaminophen and oxycodone. He has no other complaints and denies headache, chest pain, shortness of breath, abdominal pain, nausea, vomiting, fever, chills, dysuria, diarrhea or constipation. He is voiding without difficulty. He has not had a bowel movement since admission and a bowel regimen has been implemented. He is up ambulating minimally with assistance. Exam Vital Signs (past 8 hours): - 02/07/20 08:14 02/07/20 09:32 02/07/20 10:35 Temperature 98 F Pulse Rate 70 70 Respiratory Rate 17 16 Blood Pressure 115/67 117/71 Pulse Oximetry 94 95 02/07/20 11:54 Temperature 98.3 F Pulse Rate 70 Respiratory Rate 17 Blood Pressure 126/81 Pulse Oximetry 94 Oxygen Delivery Method Room Air Oxygen Flow Rate 0 Narrative Exam Narrative: General: Elderly male lying in bed and in no acute distress, well-developed, well-nourished, appropriately interactive. HEENT: Normocephalic, atraumatic. External ears without defect. Pupils equal, round, and reactive to light. Anicteric sclerae, moist conjunctivae, and no lid lag. Oropharynx free of erythema and cobble stoning with moist mucosa. Neck: Supple with full range of motion. No lymphadenopathy or thyromegaly. Cardiovascular: Regular rate and rhythm without murmurs, rubs, or gallops appreciated Pulmonary: Clear to auscultation bilaterally without crackles, wheezes, or rhonchi. Normal respiratory effort with no use of accessory muscles. Abdomen: Soft, bowel sounds present, nontender, nondistended. No hepatosplenomegaly or masses appreciated. Extremities: No clubbing, cyanosis, or edema. Left hip with dressing in place C/D/I with distal pulses and movement intact. Skin: Normal temperature, turgor, and texture; no rash, ulcers, or subcutaneous nodules appreciated. Neurological: Cranial nerves grossly intact. Psychiatric: Normal mood and affect. Alert and oriented to person, place, and time. Mild cognitive impairment with short-term memory recall deficit. Objective Labs Result Diagrams: 02/07/20 04:50 02/07/20 04:50 Labs: Laboratory Results - last 24 hr 02/06/20 02/06/20 02/07/20 17:28 21:20 04:50 WBC 9.2 RBC 4.44 L Hgb 14.2 14.3 Hct 42.8 42.8 MCV 96.4 MCH 32.0 MCHC 33.2 RDW 16.0 H Plt Count 125 L Neut % (Auto) 78.2 H Lymph % (Auto) 9.5 L Robertson % (Auto) 9.3 Eos % (Auto) 2.8 Baso % (Auto) 0.2 Neut # (Auto) 7200 H Lymph # (Auto) 900 L Robertson # (Auto) 900 Eos # (Auto) 300 Baso # (Auto) 0 PT 21.8 H INR 1.9 H Sodium Potassium Chloride Carbon Dioxide BUN Creatinine Estimated GFR BUN/Creatinine Ratio Glucose Calcium Magnesium TSH 02/07/20 02/07/20 02/07/20 04:50 04:50 04:50 WBC RBC Hgb Hct MCV MCH MCHC RDW Plt Count Neut % (Auto) Lymph % (Auto) Robertson % (Auto) Eos % (Auto) Baso % (Auto) Neut # (Auto) Lymph # (Auto) Robertson # (Auto) Eos # (Auto) Baso # (Auto) PT 16.7 H D INR 1.4 H Sodium 133 L Potassium 4.2 Chloride 100 Carbon Dioxide 26 BUN 34 H Creatinine 1.63 H Estimated GFR 40.9 L BUN/Creatinine Ratio 20.9 Glucose 128 H Calcium 8.9 Magnesium 2.1 TSH 2.08 Assessment & Plan Assessment & Plan narrative: Dion Torres is an 79-year-old male with a past medical history significant for hypertension, paroxysmal atrial fibrillation status post pacemaker on warfarin, systolic congestive heart failure, chronic kidney disease stage 3 and hypothyroidism who presented to the ED after sustaining a ground level fall with left hip pain and inability to ambulate. 1. Acute pathological left hip fracture, present on admission. Active. -Patient sustained a mechanical ground level fall and presented unable to ambulate with left hip pain. -Left hip x-ray demonstrated acute left femoral neck fracture as above. -Held warfarin pending surgical repair and will resume as below. -Continue calcium and vitamin D3 supplementation. Patient will need to be treated for osteoporosis as an outpatient by either PCP or Orthopedic surgery. -Consulted Orthopedic surgery, Dr. Byrd, who performed left hemiarthroplasty. Continue postoperative management, pain control and VTE prophylaxis per orthopedic surgery. -Continue physical and occupational therapy evaluation and treatment. 2. Chronic kidney disease stage 3, present on admission. Stable. -Initial creatinine 1.8 and GFR 37 on admission. Unknown baseline creatinine but appears to be 1.5-1.6 in 2019. Creatinine now and at baseline 1.63. -Avoid nephrotoxic agents. -Continued IV fluid hydration pending surgical repair with D5 normal saline 80 mL/hr then discontinued. -Continue to monitor creatinine daily. 3. Systolic congestive heart failure, chronic, present on admission. Stable. -Does not represent CHF exacerbation. -Continue home medications carvedilol 25 mg twice daily, lisinopril 5 mg daily and spironolactone 12.5 mg daily. Restart furosemide 60 mg daily. -Held furosemide while NPO and pending surgery. -Continue to monitor strict I&O and daily weights. 4. Hypertension, chronic, present on admission. Stable -Continue home medications carvedilol 25 mg twice daily, furosemide 60 mg daily, lisinopril 5 mg daily and spironolactone 12.5 mg daily. 5. Paroxysmal atrial fibrillation status post pacemaker on warfarin, chronic, present on admission. Stable. -Continue carvedilol 25 mg twice daily. -Initially held warfarin pending surgical repair. Initial INR supratherapeutic at 3.8. Received vitamin K 10 mg PO x1 and 5 mg IV x1, as well as, 2 units FFP to reverse warfarin for surgical repair. INR now 1.4. Plan to restart home warfarin at 3 mg daily 5 days a week and 6 mg 2 days a week (unsure what days). Continue to monitor INR daily. 6. Hypothyroidism, chronic, present on admission. Stable. -TSH normal at 2.08. -Continue home dose of levothyroxine 50 mcg daily and [place] thyroid 45 mg daily. Code status: Full code VTE prophylaxis: SCDs, held chemical prophylaxis with warfarin due to pending surgical repair Disposition: Patient will discharge in 1-2 days to halfway facility for continued rehabilitation once mobilizing. Quality VTE Deep Vein Thrombosis/Pulmonary Embolism Present on Admission: No
[2020-02-07] MEDS: ACETAMINOPHEN 325 MG TABLET 975 MG PO ×2 (14:35→21:29)
--- NOTE | 2020-02-07 14:49 | PT.IPTN ---
Current Diagnoses Pathological fracture, left femur, initial encounter for fracture (02/05/20) Surgery Performed Operation Date: 02/06/20 14:00 Actual Procedures p Hip Hemiarthroplasty(Left) - Mathew Byrd MD Physical Therapy Treatment Note M2 PT-IP Current Condition Start: 02/07/20 08:57 Freq: NEEDED Status: Active Protocol: Document 02/07/20 11:26 (Rec: 02/07/20 12:14 [id number]) Physical Therapy Current Condition Current Condition Evaluation Date 02/07/20 Treatment Diagnosis L hip hemiarthroplasty s/p displaced intracapsular femoral neck fx Onset Date 02/05/20 Precautions Posterior Hip Precautions No Hip Flexion > 90 degrees,No Hip Internal Rotation,No Hip Adduction Other Precautions Posterior hip precautions Weight Bearing Status Weight Bearing Status Weight Bear as Tolerated M3 PT-IP Subjective Start: 02/07/20 08:57 Freq: NEEDED Status: Active Protocol: Document 02/07/20 14:02 LJ (Rec: 02/07/20 14:49 LJ [id number]) Subjective Physical Therapy Visit Type Type Treatment Note Visit Start Time 14:02 Visit Stop Time 14:21 Total Visit Minutes 19 Number of TRAVEL AGENCY MANAGER Visits 1 Physical Therapy Visit Comments Patient Comments Pt states he is in too much pain to sit on the side of the bed. Agrees to bed exercises Therapy Pain Assessment Pain When Pain Assessed During Mobility Pain Present Pain Present Pain Reported M4 PT-IP Mobility and Gait Start: 02/07/20 08:57 Freq: NEEDED Status: Active Protocol: Document 02/07/20 14:02 LJ (Rec: 02/07/20 14:49 LJ [id number]) PT-Transfer Assessment Comments Mobility Comments Pt unwilling to attempt to sit on side of bed to attempt standing. Performed bed exercises instead Gait Assessment Comments Gait Comments unwilling at this time M5 PT-IP Objective Assessments Start: 02/07/20 08:57 Freq: NEEDED Status: Active Protocol: Document 02/07/20 11:26 (Rec: 02/07/20 12:14 [id number]) Orientation Orientation/Cognition Level of Alertness Alert Orientation Name,Age,Birthday,Month,Date, Year,Day of Week,Place, Situation Language Function Ability No Deficits Noted Safety Awareness Decreased Safety Awareness Memory Description Short Term Impaired Comments This PT went in earlier to provide post op booklet for pt to review but he cannot recall any precautions for this session. Reviewed booklet again prior to mobility assessment. Gross Range of Motion Upper Extremity ROM Assessment Within Functional Limits Lower Extremity ROM Assessment Left Impaired Impairments pt presents a significant L knee valgus in supine and standing. Strength Upper Extremity Strength Assessment Within Functional Limits Lower Extremity Strength Assessment Left Impaired Coordination Assessment Gross Coordination Gross Coordination WNL Sensation Assessment Sensation Gross Sensation WNL Muscle Tone Muscle Tone WNL Yes M6 PT-IP Treatment Start: 02/07/20 08:57 Freq: NEEDED Status: Active Protocol: Document 02/07/20 14:02 (Rec: 02/07/20 14:49 [id number]) Physical Therapy Treatment Exercises Exercises Ankle Pumps,Gluteal Sets,Quad Sets Education Education Provided Precautions,Safety Other Treatments Other Treatment Performed PROM knee flexion, hip abduction, SLR to roughly 40 degrees of hip flexion Educated pt on importance of keeping Lhip from rotating inward. Placed pillow btwn legs. Instructed pt to keep the pillow btwn legs M7 PT-IP Assessment and Plan Start: 02/07/20 08:57 Freq: NEEDED Status: Active Protocol: Document 02/07/20 14:02 (Rec: 02/07/20 14:49 [id number]) PT Summary Assessment and Plan Potential Rehabilitation Potential Fair Status of Condition at Evaluation Evolving Summary Impairments Pain,ROM,Strength,Balance, Cognition,Bed Mobility, Transfers,Gait,Activity Tolerance Assessment Summary Pt reported increased pain after PT session this morning. Initially refused tx but was agreeable to PROM bed exercises. Pt required MaxA for SLR, hip abduction, knee flexion but after several reps of each exercise and coached breath control he was able to increase his effort and lift his LLE off the bed ~15 degrees with very little support. Placed pillow between legs and instructed CONCERT MANAGER to continue because his L foot has a tendency to roll inward. Placed ice pack on incision area. Goals Bed Mobility Goal Minimal Assistance Transfer Goal Minimal Assistance,Front Wheeled Walker Gait Goal Minimal Assistance,Front Wheel Walker Gait Distance 20 Days to Meet Goals 5 Frequency of Treatment Frequency Of Treatment Twice a Day Treatment Plan Physical Therapy Treatment Plan Bed Mobility Training,Transfer Training,Gait Training, Therapeutic Exercise,Balance Retraining,Post Op Education, Discharge Planning,Hot or Cold Pack,Manual Therapy Other Recommendations and Next Treatment check vital signs Focus review post op precautions sit <> stand transfer if possible Recommendations To Nursing Amount of Assist Needed PT/OT Assist Only Discharge Recommendations PT Discharge Recommendations SNF Rehab
[2020-02-07] MEDS: CALCIUM CARB/VIT D3 500/200 TABLET 1 EACH PO (18:41)
[2020-02-07] MEDS: WARFARIN 3 MG TABLET PO (18:41)
[2020-02-08 03:21] VITALS: BP 103/71; PULSE 67; RESP 16; TEMP 37.1; O2SAT 95
[2020-02-08] MEDS: OXYCODONE IR 5 MG TABLET PO ×3 (03:28→14:04)
[2020-02-08] MEDS: HYDROMORPHONE 0.5 MG INJ IV (04:45)
[2020-02-08] MEDS: SODIUM CHLORIDE 0.9% FLUSH 10 ML IV ×2 (04:46→08:53)
[2020-02-08 05:04] LABS: Add Manual Diff / Slide Review NO; Basophils Absolute Auto 0 /uL (0-100); Basophils Percent Auto 0.5 % (0-2); Eosinophils Absolute Auto 200 /uL (0-450); Eosinophils Percent Auto 2.2 % (2-4); Hematocrit 39.3 % (41-53); Hemoglobin 12.9 g/dL (13.5-17.5); Lymphocytes Absolute Auto 1000 /uL (1100-4500); Lymphocytes Percent Auto 11.3 % (25-40); Mean Corpuscular HGB Conc 32.9 % (30-36); Mean Corpuscular Hemoglobin 31.6 PG (26-34); Mean Corpuscular Volume 96.2 fL (80-100); Monocytes Absolute Auto 1100 /uL (0-900); Monocytes Percent Auto 12.5 % (3-14); Neutrophils Absolute Auto 6400 /uL (1500-7000); Neutrophils Percent Auto 73.5 % (50-75); Platelet Count 113 X10^3/uL (150-400); Red Blood Cell Count 4.08 X10^6/uL (4.5-5.9); Red Cell Distribution Width 15.9 % (11.6-14.8); White Blood Cell Count 8.7 X10^3/uL (4.5-11.0)
[2020-02-08 05:16] LABS: INR 1.4 (0.9-1.3); Prothrombin Time 16.1 SECONDS (10.1-12.7)
[2020-02-08] MEDS: THYROID, PORK 30 MG TABLET 45 MG PO (05:31)
[2020-02-08] MEDS: LEVOTHYROXINE 50 MCG TABLET PO (05:32)
[2020-02-08 08:00] VITALS: BP 111/68; PULSE 70; RESP 18; TEMP 37.1; O2SAT 96
[2020-02-08] MEDS: polyethylene glycoL 3350 17 GM POWD.PACK PO (08:50)
[2020-02-08] MEDS: DOCUSATE 100 MG CAPSULE PO (08:51)
[2020-02-08] MEDS: FUROSEMIDE 20 MG TABLET 60 MG PO (08:51)
[2020-02-08] MEDS: carvediloL 25 MG TABLET PO (08:51)
[2020-02-08] MEDS: ACETAMINOPHEN 325 MG TABLET 975 MG PO ×2 (08:51→14:05)
--- NOTE | 2020-02-08 08:51 | P.PN_ITS ---
Subjective Subjective Date Patient Seen: 02/08/20 Time Patient Seen: 08:51 Interval history: Yesterday he did not do much with physical therapy as he was hurting too much. He required IV pain medication overnight but his pain is under much better control today. Exam Vital Signs (past 8 hours): - 02/08/20 03:21 02/08/20 08:00 Temperature 98.7 F 98.7 F Pulse Rate 67 70 Respiratory Rate 16 18 Blood Pressure 103/71 111/68 Pulse Oximetry 95 96 Oxygen Delivery Method Room Air Oxygen Flow Rate 0 Const Orientation: alert and oriented x3 Extrem Other: Left hip minimal dry drainage. 5/5 motor distally. Easily wiggles toes, soft calf Objective Labs Result Diagrams: 02/08/20 04:35 02/07/20 04:50 Labs: Laboratory Results - last 24 hr 02/07/20 02/08/20 02/08/20 04:50 04:35 04:35 WBC 8.7 RBC 4.08 L Hgb 12.9 L Hct 39.3 L MCV 96.2 MCH 31.6 MCHC 32.9 RDW 15.9 H Plt Count 113 L Neut % (Auto) 73.5 Lymph % (Auto) 11.3 L [place] % (Auto) 12.5 Eos % (Auto) 2.2 Baso % (Auto) 0.5 Neut # (Auto) 6400 Lymph # (Auto) 1000 L [place] # (Auto) 1100 H Eos # (Auto) 200 Baso # (Auto) 0 PT 16.1 H INR 1.4 H TSH 2.08 Assessment & Plan Post-op Postoperative Procedures: Procedures Operation Date: 02/06/20 14:00 Actual Procedures Side Surgeon p Hip Hemiarthroplasty Left Mathew Byrd MD He is doing better today. As he required IV pain medication to supplement the orals, we want to try to wean back on that and I will increase his oral medication. Anticipate discharge to long-term in the next few days. Quality VTE Deep Vein Thrombosis/Pulmonary Embolism Present on Admission: No
[2020-02-08] MEDS: CALCIUM CARB/VIT D3 500/200 TABLET 1 EACH PO (08:52)
[2020-02-08] MEDS: SPIRONOLACTONE 25 MG TABLET 12.5 MG PO (08:52)
[2020-02-08] MEDS: lisinopriL 20 MG TABLET 5 MG PO (08:52)
[2020-02-08 10:17] VITALS: O2SAT 97
--- NOTE | 2020-02-08 10:51 | CM.DPC ---
DCP continued: EMR Reviewed: CM/Rn spoke with Dr. viera who consulted with Dr. Park and they agreed patient is ready to D/C to SNF today. Cm/RN called Maddi at [facility] and they can accept patient today for admission and will be here to pick patient up at 2:15pm. Charge nurse notified of D/C time. CM/RN also spoke with patients nurse who was concerned with D/C plan since patient hasn't mobilized with PT yet. Cm/RN talked with DR. Viera who stated that patient is going to SNF to help with Rehab to get patient ambulating and building strength and plans on continuing with D/C plan. CM/RN met with patient at the bedside and explained D/C plan and patient stated understanding and agreed with D/C plan to [facility] today at 2:15pm. A new Covid is not needed since patient will D/C prior to 1500 when his last covid would be older than 72hours. PASRR complete and faxed to [facility] for their review. original placed into D/C packet to go with patient to [facility]. Copy placed in green folder for VICTOR MANUEL Ugarte to scan in tomorrow. Aleyda Dunlap RN.
--- NOTE | 2020-02-08 11:11 | P.DS_ITS ---
History of Present Illness History of Present Illness Date Patient Seen: 02/05/20 Chief complaint: possible fractured hip Narrative: Written by Dr. Tenorio: This is an 79 year old male with a new left hip intertrochanteric fracture. He was walking on an asphalt driveway, very near his car, when he fell. He cannot recall if he tripped or simply fell. His left hip was painful so he dragged himself to the car and drove 4 miles to his cousin's house where his family me mbers called for an ambulance. His x-ray appears to show an intertrochanteric fracture of the left hip. He will be going for hip surgery with Dr. Sampson tomorrow. His INR is 3.8 so he is receiving vitamin K 10 mg IV tonight. He drinks alcohol only rarely. His EKG is a paced rhythm. He has a chronically enlarged left knee appearance. At baseline he is treated for congestive heart failure, hypertension, hypothyroidism and atrial fibrillation. Discharge Providers Provider Date of admission: 02/05/20 18:19 Discharge Date: 02/08/20 Primary care physician: Diego Gillespie MD Consults: 02/05/20 18:57 Consult to Orthopedic Surgery Urgent Comment: Consulting Provider: Tk Sampson Reason for consultation: Surgical Left hip 02/06/20 21:05 Consult to Discharge Planning Routine Comment: Consult to Physical Therapy Evaluate & Treat Comment: Physician Instructions: post op JAE protocol Consult to Respiratory Therapy Evaluate & Treat Comment: Physician Instructions: Evaluate and treat Discharge provider: Alicia Caputo DO Summary Hospital Course Discharge Diagnosis: 1. Acute pathological left hip fracture, present on admission. Active. 2. Acute blood loss anemia, not present on admission. Stable. 3. Chronic kidney disease stage 3, present on admission. Stable. 4. Systolic congestive heart failure, chronic, present on admission. Stable. 5. Hypertension, chronic, present on admission. Stable 6. Paroxysmal atrial fibrillation status post pacemaker on warfarin, chronic, present on admission. Stable. 7. Hypothyroidism, chronic, present on admission. Stable. Hospital Course: Dion Torres is an 79-year-old male with a past medical history significant for hypertension, paroxysmal atrial fibrillation status post pacemaker on warfarin, systolic congestive heart failure, chronic kidney disease stage 3 and hypothyroidism who presented to the ED after sustaining a ground level fall with left hip pain and inability to ambulate. 1. Acute pathological left hip fracture, present on admission. Active. -Patient sustained a mechanical ground level fall and presented unable to ambulate with left hip pain. -Left hip x-ray demonstrated acute left femoral neck fracture. -Held warfarin pending surgical repair and resumed as below. -Continued calcium and vitamin D3 supplementation twice daily. Patient will need to be treated for osteoporosis as an outpatient by either PCP or Orthopedic surgery. -Consulted Orthopedic surgery, Dr. Byrd, who performed left hemiarthroplasty. Continued postoperative management, pain control and VTE prophylaxis per orthopedic surgery. Follow-up postoperatively with orthopedic surgery Dr. Byrd in 2 weeks. -Continued physical and occupational therapy evaluation and treatment. Continued weight-bearing as tolerated on left lower extremity with walker and posterior hip precautions. 2. Acute blood loss anemia, not present on admission. Stable. -Initial hemoglobin 14.7. Hemoglobin trended down now 12.9 due to acute blood loss from hip fracture and repair. -Continued to monitor CBC daily. Recommend close outpatient monitoring of H&H at care home facility. 3. Chronic kidney disease stage 3, present on admission. Stable. -Initial creatinine 1.8 and GFR 37 on admission. Unknown baseline creatinine but appears to be 1.5-1.6 in 2019. Creatinine now and at baseline 1.63. -Avoided nephrotoxic agents. -Continued IV fluid hydration pending surgical repair with D5 normal saline 80 mL/hr then discontinued. -Continued to monitor creatinine daily. 4. Systolic congestive heart failure, chronic, present on admission. Stable. -Does not represent CHF exacerbation. -Continue home medications carvedilol 25 mg twice daily, furosemide 60 mg daily (held initially pending surgical repair), lisinopril 5 mg daily and spironolactone 12.5 mg daily. -Continued to monitor strict I&O and daily weights. Net +1.8 L. 5. Hypertension, chronic, present on admission. Stable -Continued home medications carvedilol 25 mg twice daily, furosemide 60 mg daily (held initially pending surgical repair), lisinopril 5 mg daily and spironolactone 12.5 mg daily. 6. Paroxysmal atrial fibrillation status post pacemaker on warfarin, chronic, present on admission. Stable. -Continued carvedilol 25 mg twice daily. -Initially held warfarin pending surgical repair. Initial INR supratherapeutic at 3.8. Received vitamin K 10 mg PO x1 and 5 mg IV x1, as well as, 2 units FFP to reverse warfarin for surgical repair. INR now 1.4. Restarted and continued home warfarin at 4 mg daily except for Saturdays 3 mg. Continued to monitor INR daily and recommend close outpatient monitoring at care home facility. 7. Hypothyroidism, chronic, present on admission. Stable. -TSH normal at 2.08. -Continued home dose of levothyroxine 50 mcg daily and [place] thyroid 45 mg daily. Exam Vital Signs (past 8 hours): - 02/08/20 03:21 02/08/20 08:00 02/08/20 10:17 Temperature 98.7 F 98.7 F Pulse Rate 67 70 Respiratory Rate 16 18 Blood Pressure 103/71 111/68 Pulse Oximetry 95 96 97 Oxygen Delivery Method Room Air Oxygen Flow Rate 0 Narrative Exam Narrative: General: Elderly male lying in bed and in no acute distress, well-developed, well-nourished, appropriately interactive. HEENT: Normocephalic, atraumatic. External ears without defect. Pupils equal, round, and reactive to light. Anicteric sclerae, moist conjunctivae, and no lid lag. Oropharynx free of erythema and cobble stoning with moist mucosa. Neck: Supple with full range of motion. No lymphadenopathy or thyromegaly. Cardiovascular: Regular rate and rhythm without murmurs, rubs, or gallops appreciated Pulmonary: Clear to auscultation bilaterally without crackles, wheezes, or rhonchi. Normal respiratory effort with no use of accessory muscles. Abdomen: Soft, bowel sounds present, nontender, nondistended. No hepatosplenomegaly or masses appreciated. Extremities: No clubbing, cyanosis, or edema. Left hip with dressing in place with minimal dried drainage otherwise C/D/I without surrounding erythema or edema and intact distal pulses and movement. Skin: Normal temperature, turgor, and texture; no rash, ulcers, or subcutaneous nodules appreciated. Neurological: Cranial nerves grossly intact. Psychiatric: Normal mood and affect. Alert and oriented to person, place, and time. Mild cognitive impairment with short-term memory recall deficit. Objective Labs Result Diagrams: 02/08/20 04:35 02/07/20 04:50 Labs: Laboratory Results - last 24 hr 02/08/20 02/08/20 04:35 04:35 WBC 8.7 RBC 4.08 L Hgb 12.9 L Hct 39.3 L MCV 96.2 MCH 31.6 MCHC 32.9 RDW 15.9 H Plt Count 113 L Neut % (Auto) 73.5 Lymph % (Auto) 11.3 L [place] % (Auto) 12.5 Eos % (Auto) 2.2 Baso % (Auto) 0.5 Neut # (Auto) 6400 Lymph # (Auto) 1000 L [place] # (Auto) 1100 H Eos # (Auto) 200 Baso # (Auto) 0 PT 16.1 H INR 1.4 H Discharge Plan Discharge Plan Patient Disposition: SNF Under care of provider: [employer] Sh[employer] Technician Discharge orders & Medications Prescriptions: New acetaminophen 325 mg Tablet 975 mg PO TID Qty: 30 RF: 0 docusate sodium [DOK] 100 mg Capsule 100 mg PO BID Qty: 60 RF: 0 calcium carbonate-vitamin D3 [Oyster Shell Calcium-Vit D3] 500 mg(1,250mg) - 200 unit Tablet 1 ea PO BIDWM Qty: 60 RF: 0 oxycodone 5 mg Tablet 5 mg PO Q4HR PRN (Reason: Pain, Moderate (4-6)) Qty: 10 RF: 0 polyethylene glycol 3350 17 gram Powder In Packet 17 g PO DAILY Qty: 30 RF: 0 Continued Fish Oil 1,000 mg PO DAILY Qty: 0 RF: 0 anastrozole 1 mg tablet 0.5 mg PO 2XW RF: 0 carvedilol 25 mg tablet 25 mg PO BID RF: 0 spironolactone 25 mg tablet 12.5 mg PO BID RF: 0 levothyroxine 50 mcg tablet 50 mcg PO DAILY RF: 0 thyroid (pork) 15 mg tablet 45 mg PO DAILY RF: 0 testosterone 1 applic topical DIRECTED RF: 0 furosemide 40 mg tablet 60 mg PO DAILY Qty: 0 RF: 0 lisinopril 5 mg tablet 5 mg PO DAILY Qty: 30 RF: 0 warfarin [Coumadin] 4 mg Tablet See Rx Instructions .ROUTE .COMPLEX RF: 0 warfarin [Coumadin] 3 mg Tablet See Rx Instructions .ROUTE .COMPLEX RF: 0 Follow up/Referrals: Diego Gillespie MD [Primary Care Provider] - Mathew Byrd MD [Physician] - 2 Weeks Diet/Activity/Treatments Diet: Low-fat, Low-sodium and Low-cholesterol Activity: Activity as tolerated with walker and weight-bearing on left lower extremity as tolerated. Continue left posterior hip precautions. Special Rehabilitation Services Reason for rehabilitation: Post-operative therapy Rehab type: Physical therapy and Occupational therapy Discharge Data Primary Care Provider: Diego Gillespie VTE Deep Vein Thrombosis/Pulmonary Embolism Present on Admission: No
[2020-02-08 12:00] VITALS: BP 110/74; PULSE 70; RESP 18; TEMP 36.4; O2SAT 95
--- NOTE | 2020-02-08 13:03 | PT.IPTN ---
Addendum entered and electronically signed by Meera Webster PT 02/08/20 13:05: Pt remains unable to recall any of his posterior hip precautions. Careful monitoring and abduction pillow is recommended at [facility]. Original Note: Current Diagnoses Pathological fracture, left femur, initial encounter for fracture (02/05/20) Surgery Performed Operation Date: 02/06/20 14:00 Actual Procedures p Hip Hemiarthroplasty(Left) - Mathew Byrd MD Physical Therapy Treatment Note M2 PT-IP Current Condition Start: 02/07/20 08:57 Freq: NEEDED Status: Active Protocol: Document 02/07/20 11:26 HH (Rec: 02/07/20 12:14 HH [id number]) Physical Therapy Current Condition Current Condition Evaluation Date 02/07/20 Treatment Diagnosis L hip hemiarthroplasty s/p displaced intracapsular femoral neck fx Onset Date 02/05/20 Precautions Posterior Hip Precautions No Hip Flexion > 90 degrees,No Hip Internal Rotation,No Hip Adduction Other Precautions Posterior hip precautions Weight Bearing Status Weight Bearing Status Weight Bear as Tolerated M3 PT-IP Subjective Start: 02/07/20 08:57 Freq: NEEDED Status: Active Protocol: Document 02/08/20 12:52 AW (Rec: 02/08/20 13:03 AW [id number]) Subjective Physical Therapy Visit Type Type Treatment Note Visit Start Time 11:04 Visit Stop Time 11:37 Total Visit Minutes 33 Notes Pt has planned d/c to [facility] this PM Physical Therapy Visit Comments Patient Comments My pain is more under control today. Therapy Pain Assessment Pain When Pain Assessed During Mobility Pain Present Pain Present Allowed to Sleep Location Left Hip Intensity 4 Scale Used Numeric (0 - 10) Description Aching Pain Behaviors Calling Out,Facial Grimacing, Guarding,Holding Area,Moaning Pain Management Techniques Apply Cold,Timing of Activity with Medications M4 PT-IP Mobility and Gait Start: 02/07/20 08:57 Freq: NEEDED Status: Active Protocol: Document 02/08/20 12:52 AW (Rec: 02/08/20 13:03 AW [id number]) PT-Bed Mobility Assessment Supine to Sit Supine to Sit Moderate Assistance,1 Person Assistance,Head of Bed Elevated,Bedrails Sit to Supine Sit to Supine Moderate Assistance,1 Person Assistance,Bedrails Scooting Scooting to Edge of Bed Moderate Assistance PT-Transfer Assessment Sit to and From Stand Sit to and from Stand Maximum Assistance,1 Person Assistance,Use of Upper Extremities Equipment Transfer Assistive Device Gait Belt,Front Wheeled Walker Orthotic/Prosthetic Devices or Brace: No Comments Mobility Comments Pt required mod A x 1 for supine <> sit with therapist providing support for operative leg throughout. He was able to tolerate sitting EOB several minutes while attempting to void with a urinal. Pt then agreed to attempt standing, requiring max A x 1 with FWW. Pt required max cues for terminal knee extension and hip extension. He responded best to cues for glute engagement and scapular retraction. Pt stood a total of 5 minutes with regular cues for posture. LLE WB was minimal with primary WB through BUE on the walker. Pt was able to practice lateral weight shifting to the left, achieving evenly distributed weight. He also was able to minimally clear each foot (L>R ) to march in place x 3 each side. Pt then requested to sit on the bed and required mod A x 1 to reposition in supine. Bed alarm was activated and pt was left with call light and all needs within reach. Gait Assessment Comments Gait Comments unwilling at this time Stair Climbing Assessment Comments Stair Climbing Comments pt does not have stairs PT-Balance Assessment Sitting Balance and Reactions Static Sitting Balance Ability Normal Dynamic Sitting Balance Ability Good Standing Balance and Reactions Static Standing Balance Ability Fair Dynamic Standing Balance Ability Poor Device Used FWW M5 PT-IP Objective Assessments Start: 02/07/20 08:57 Freq: NEEDED Status: Active Protocol: Document 02/07/20 11:26 (Rec: 02/07/20 12:14 [id number]) Orientation Orientation/Cognition Level of Alertness Alert Orientation Name,Age,Birthday,Month,Date, Year,Day of Week,Place, Situation Language Function Ability No Deficits Noted Safety Awareness Decreased Safety Awareness Memory Description Short Term Impaired Comments This PT went in earlier to provide post op booklet for pt to review but he cannot recall any precautions for this session. Reviewed booklet again prior to mobility assessment. Gross Range of Motion Upper Extremity ROM Assessment Within Functional Limits Lower Extremity ROM Assessment Left Impaired Impairments pt presents a significant L knee valgus in supine and standing. Strength Upper Extremity Strength Assessment Within Functional Limits Lower Extremity Strength Assessment Left Impaired Coordination Assessment Gross Coordination Gross Coordination WNL Sensation Assessment Sensation Gross Sensation WNL Muscle Tone Muscle Tone WNL Yes M6 PT-IP Treatment Start: 02/07/20 08:57 Freq: NEEDED Status: Active Protocol: Document 02/08/20 12:52 AW (Rec: 02/08/20 13:03 AW [id number]) Physical Therapy Treatment Exercises Exercises Gluteal Sets,Quad Sets Education Education Provided Precautions,Weight Bearing Status,Safety M7 PT-IP Assessment and Plan Start: 02/07/20 08:57 Freq: NEEDED Status: Active Protocol: Document 02/08/20 12:52 AW (Rec: 02/08/20 13:03 AW [id number]) PT Summary Assessment and Plan Potential Rehabilitation Potential Fair Status of Condition at Evaluation Evolving Summary Progress Towards Goals Slow Progress due to Pain Assessment Summary Pt was able to complete bed mobility with decreased level of assist and to stand with max assist. His standing tolerance and weightbearing is improving minimally. Pt remains an excellent candidate for SNF rehab. Goals Bed Mobility Goal Minimal Assistance Transfer Goal Minimal Assistance,Front Wheeled Walker Gait Goal Minimal Assistance,Front Wheel Walker Gait Distance 20 Days to Meet Goals 5 Frequency of Treatment Frequency Of Treatment Twice a Day Treatment Plan Physical Therapy Treatment Plan Bed Mobility Training,Transfer Training,Gait Training, Therapeutic Exercise,Balance Retraining,Post Op Education, Discharge Planning,Hot or Cold Pack,Manual Therapy Other Recommendations and Next Treatment check vital signs Focus review post op precautions sit <> stand transfer if possible Recommendations To Nursing Amount of Assist Needed PT/OT Assist Only Discharge Recommendations PT Discharge Recommendations SNF Rehab Transportation Needs at Discharge Wheelchair/Cabulance,Stretcher /Ambulance
--- NOTE | 2020-02-08 15:31 | PC.NURSE ---
Transfer: Pt feels ready for transfer. Report given to victoriano, admitting nurse at facility. Reviewed hospital course, surgery, pt is on posterior hip precautions. Unknown when he had last bm, pt thinks it was the day he came in, has been getting a bowel regime. Discussed wound and adl's, pt is currently 2 person transfer and needs max assist. Discussed warfarin and last labs/inr. Questions answered. pt received pain med prior to transport. Transfered to their facility via van.
--- NOTE | 2020-02-08 16:01 | PT.IPTN ---
Current Diagnoses Pathological fracture, left femur, initial encounter for fracture (02/05/20) Surgery Performed Operation Date: 02/06/20 14:00 Actual Procedures p Hip Hemiarthroplasty(Left) - Mathew Byrd MD Physical Therapy Treatment Note M2 PT-IP Current Condition Start: 02/07/20 08:57 Freq: NEEDED Status: Active Protocol: Document 02/07/20 11:26 HH (Rec: 02/07/20 12:14 HH [id number]) Physical Therapy Current Condition Current Condition Evaluation Date 02/07/20 Treatment Diagnosis L hip hemiarthroplasty s/p displaced intracapsular femoral neck fx Onset Date 02/05/20 Precautions Posterior Hip Precautions No Hip Flexion > 90 degrees,No Hip Internal Rotation,No Hip Adduction Other Precautions Posterior hip precautions Weight Bearing Status Weight Bearing Status Weight Bear as Tolerated M3 PT-IP Subjective Start: 02/07/20 08:57 Freq: NEEDED Status: Active Protocol: Document 02/08/20 15:56 AW (Rec: 02/08/20 16:01 AW [id number]) Subjective Physical Therapy Visit Type Type Treatment Note Visit Start Time 14:05 Visit Stop Time 14:15 Total Visit Minutes 10 Notes Pt discharging to SNF Physical Therapy Visit Comments Patient Comments Pt is tired but ready to move on Therapy Pain Assessment Pain When Pain Assessed During Mobility Pain Present Pain Present Pain Reported Location Left Hip Pain Management Techniques Apply Cold,Timing of Activity with Medications M4 PT-IP Mobility and Gait Start: 02/07/20 08:57 Freq: NEEDED Status: Active Protocol: Document 02/08/20 15:56 AW (Rec: 02/08/20 16:01 AW [id number]) PT-Bed Mobility Assessment Supine to Sit Supine to Sit Moderate Assistance,1 Person Assistance,Head of Bed Elevated,Bedrails Scooting Scooting to Edge of Bed Moderate Assistance PT-Transfer Assessment Sit to and From Stand Sit to and from Stand Moderate Assistance,2 Person Assistance,Use of Upper Extremities Equipment Transfer Assistive Device Gait Belt,Front Wheeled Walker Orthotic/Prosthetic Devices or Brace: No Transfers Transfer Destination Wheelchair Transfer Technique Stand Step Pivot Transfer Ability Level of Assist Moderate Assistance,2 Person Assistance,Use of Upper Extremities Comments Mobility Comments Pt is discharging to SNF and needed transfer to w/c. He completed supine to sit mod A x 1. He stood using FWW mod A x 2 and transferred to the w/c mod A x 2, requiring cues for sequencing and to use his UE' s to slow descent on transfer. M5 PT-IP Objective Assessments Start: 02/07/20 08:57 Freq: NEEDED Status: Active Protocol: Document 02/07/20 11:26 HH (Rec: 02/07/20 12:14 HH [id number]) Orientation Orientation/Cognition Level of Alertness Alert Orientation Name,Age,Birthday,Month,Date, Year,Day of Week,Place, Situation Language Function Ability No Deficits Noted Safety Awareness Decreased Safety Awareness Memory Description Short Term Impaired Comments This PT went in earlier to provide post op booklet for pt to review but he cannot recall any precautions for this session. Reviewed booklet again prior to mobility assessment. Gross Range of Motion Upper Extremity ROM Assessment Within Functional Limits Lower Extremity ROM Assessment Left Impaired Impairments pt presents a significant L knee valgus in supine and standing. Strength Upper Extremity Strength Assessment Within Functional Limits Lower Extremity Strength Assessment Left Impaired Coordination Assessment Gross Coordination Gross Coordination WNL Sensation Assessment Sensation Gross Sensation WNL Muscle Tone Muscle Tone WNL Yes M6 PT-IP Treatment Start: 02/07/20 08:57 Freq: NEEDED Status: Active Protocol: Document 02/08/20 12:52 AW (Rec: 02/08/20 13:03 AW [id number]) Physical Therapy Treatment Exercises Exercises Gluteal Sets,Quad Sets Education Education Provided Precautions,Weight Bearing Status,Safety M7 PT-IP Assessment and Plan Start: 02/07/20 08:57 Freq: NEEDED Status: Active Protocol: Document 02/08/20 15:56 AW (Rec: 02/08/20 16:01 AW [id number]) PT Summary Assessment and Plan Potential Rehabilitation Potential Fair Status of Condition at Evaluation Evolving Summary Impairments Pain,ROM,Strength,Balance, Cognition,Bed Mobility, Transfers,Gait,Activity Tolerance Progress Towards Goals Slow Progress due to Pain Assessment Summary Pt required mod assist x 1-2 to complete transfer from bed to wheelchair using FWW. Pt discharging to [facility] via w/c transport. Goals Bed Mobility Goal Minimal Assistance Transfer Goal Minimal Assistance,Front Wheeled Walker Gait Goal Minimal Assistance,Front Wheel Walker Gait Distance 20 Days to Meet Goals 5 Frequency of Treatment Frequency Of Treatment Twice a Day Treatment Plan Physical Therapy Treatment Plan Bed Mobility Training,Transfer Training,Gait Training, Therapeutic Exercise,Balance Retraining,Post Op Education, Discharge Planning,Hot or Cold Pack,Manual Therapy Other Recommendations and Next Treatment check vital signs Focus review post op precautions sit <> stand transfer if possible Recommendations To Nursing Amount of Assist Needed PT/OT Assist Only Discharge Recommendations PT Discharge Recommendations SNF Rehab Transportation Needs at Discharge Wheelchair/Cabulance,Stretcher /Ambulance
== END 2020-02-08 14:30 | DRG 470 ==
LOC: ED 18:12 → AC 18:21
PROVIDERS: Anesthesiology; Emergency Medicine; Orthopaedic Surgery Adult Reconstructive Orthopaedic Surgery; Admitting Provider Family Medicine; Emergency Provider Student in an Organized Health Care Education/Training Program; Family Provider Family Medicine; PCP Family Medicine; Referring Provider Student in an Organized Health Care Education/Training Program; Visit Provider Internal Medicine
PROC: 0SRS0JZ Replacement of Left Hip Joint, Femoral Surface with Synthetic Substitute, Open Approach (ICD-10-PCS; CPT 27125; principal; 2020-02-06 14:00)
DX: M84.452A Pathological fracture, left femur, initial encounter for fracture (principal); I13.0 Hypertensive heart and chronic kidney disease with heart failure and stage 1 through stage 4 chronic kidney disease, or unspecified chronic kidney disease; I50.22 Chronic systolic (congestive) heart failure; D62 Acute posthemorrhagic anemia; N18.3 Chronic kidney disease, stage 3 (moderate); I48.0 Paroxysmal atrial fibrillation; E03.9 Hypothyroidism, unspecified; Z95.0 Presence of cardiac pacemaker; Z11.59 Encounter for screening for other viral diseases; W18.30XA Fall on same level, unspecified, initial encounter; Y92.008 Other place in unspecified non-institutional (private) residence as the place of occurrence of the external cause; Z79.01 Long term (current) use of anticoagulants
CPT/HCPCS: 36415; 36430; 71045; 72170; 73502; 80048; 80053; 83735; 84443; 85014; 85018; 85025; 85610; 85730; 86900; 86901; 86927; 87635; 93005; 96374; 97110; 97163; 97530; 99284; C1776; P9016; J0131; J0690; J1170; J1885; J2270; J2704; J2795; J3010; J3430

== ENCOUNTER → 2020-02-11 12:58 | Outpatient (ROUT) | payer SELFPAY ==
[2020-02-05 19:25] VITALS: BMI 26.7
[2020-02-11 13:03] LABS: INR 2.9 (0.9-1.3); Prothrombin Time 33.4 SECONDS (10.1-12.7)
== END ==
PROVIDERS: Family Provider Family Medicine; PCP Family Medicine; Visit Provider Internal Medicine
DX: I48.91 Unspecified atrial fibrillation (principal)
CPT/HCPCS: 85610

== ENCOUNTER → 2020-02-13 12:21 | Outpatient (ROUT) | payer SELFPAY ==
[2020-02-05 19:25] VITALS: BMI 26.7
[2020-02-13 12:50] LABS: INR 4.1 (0.9-1.3); Prothrombin Time 46.4 SECONDS (10.1-12.7)
== END ==
PROVIDERS: Family Provider Family Medicine; PCP Family Medicine; Visit Provider Internal Medicine
DX: I48.91 Unspecified atrial fibrillation (principal)
CPT/HCPCS: 85610

== ENCOUNTER → 2020-02-16 16:51 | Outpatient (ROUT) | payer SELFPAY ==
[2020-02-05 19:25] VITALS: BMI 26.7
[2020-02-16 17:35] LABS: INR 1.8 (0.9-1.3); Prothrombin Time 20.2 SECONDS (10.1-12.7)
== END ==
PROVIDERS: Family Provider Family Medicine; Visit Provider Internal Medicine
DX: I48.0 Paroxysmal atrial fibrillation (principal)
CPT/HCPCS: 85610

== ENCOUNTER → 2020-02-18 10:52 | Outpatient (CLI) | payer MEDICARE, OTHER, SELFPAY ==
[2020-02-05 19:25] VITALS: BMI 26.7
--- NOTE | 2020-02-18 | DI.RAD.S_ITS ---
PROCEDURE: XR HIP W PEL IF DONE LT 2V INDICATIONS: Fracture of neck of left femur TECHNIQUE: AP pelvis and both frontal and lateral lateral views of the left hip [facility]. [facility], 16:02. FINDINGS: Bones: Patient is status post left hip arthroplasty, with hardware components in expected positions. The hip joint appears congruent. The visualized bony structures appear intact. Soft tissues: Overlying postoperative changes are noted. No suspicious soft tissue densities. IMPRESSION: Normal alignment after left total hip arthroplasty. Dictated by: Brandon Joaquin M.D. on 02/18/2020 at 13:34 Approved by: Brandon Joaquin M.D. on 02/18/2020 at 13:35 , with
[2020-02-18 11:15] LABS: INR 1.7 (0.9-1.3); Prothrombin Time 19.9 SECONDS (10.1-12.7)
[2020-02-19 18:09] LABS: COVID19 Sendout Not Detected (Not Detected)
== END ==
PROVIDERS: Internal Medicine; Family Provider Family Medicine; Referring Provider Orthopaedic Surgery Adult Reconstructive Orthopaedic Surgery; Visit Provider Orthopaedic Surgery Adult Reconstructive Orthopaedic Surgery
DX: Z11.59 Encounter for screening for other viral diseases (principal); S72.002S Fracture of unspecified part of neck of left femur, sequela; Z96.642 Presence of left artificial hip joint
CPT/HCPCS: 73502; 85610; 87635

== ENCOUNTER → 2020-02-20 11:08 | Outpatient (ROUT) | payer SELFPAY ==
[2020-02-05 19:25] VITALS: BMI 26.7
[2020-02-20 11:20] LABS: INR 3.2 (0.9-1.3); Prothrombin Time 37.2 SECONDS (10.1-12.7)
== END ==
PROVIDERS: Family Provider Family Medicine; Visit Provider Internal Medicine
DX: I48.91 Unspecified atrial fibrillation (principal)
CPT/HCPCS: 85610

== ENCOUNTER → 2020-02-23 11:53 | Outpatient (ROUT) | payer SELFPAY ==
[2020-02-05 19:25] VITALS: BMI 26.7
[2020-02-23 12:35] LABS: Prothrombin Time 52.1 SECONDS (10.1-12.7)
[2020-02-23 14:15] LABS: INR 4.6 (0.9-1.3)
== END ==
PROVIDERS: Family Provider Family Medicine; Visit Provider Internal Medicine
DX: I48.91 Unspecified atrial fibrillation (principal)
CPT/HCPCS: 85610

== ENCOUNTER → 2020-02-24 10:44 | Outpatient (CLI) | payer MEDICARE, OTHER, SELFPAY ==
[2020-02-05 19:25] VITALS: BMI 26.7
--- NOTE | 2020-02-24 | DI.RAD.S_ITS ---
PROCEDURE: XR HIP W PEL IF DONE LT 2V INDICATIONS: IMPAIRED ALIGNMENT TECHNIQUE: AP pelvis with lateral view(s) of the left hip(s). COMPARISON: [facility], , XR HIP W PEL IF DONE LT 2V, 02/18/2020, 10:46. FINDINGS: Bones: No fracture. Left hip arthroplasty in expected postoperative alignment. Hardware appears intact. Mild to moderate right hip joint degeneration. Lower lumbar spondylosis and facet arthropathy. Scattered vascular calcifications. IMPRESSION: Left hip arthroplasty in expected postoperative alignment. Dictated by: Chung Shaw M.D. on 02/24/2020 at 14:26 Approved by: Chung Shaw M.D. on 02/24/2020 at 14:27
--- NOTE | 2020-02-24 | DI.RAD.S_ITS ---
PROCEDURE: XR TIBIA FIBULA RT 2V INDICATIONS: IMPAIRED ALIGNMENT TECHNIQUE: 2 views of the tibia and fibula were acquired. COMPARISON: None. FINDINGS: Bones: There is severe femorotibial compartment narrowing and large tricompartmental osteophytes of the knee joint. No acute fracture or dislocation. Soft tissues: There is scattered soft tissue vascular calcifications. IMPRESSION: 1. Severe left knee osteoarthritis. 2. No acute radiographic findings. 3. Arterial atherosclerosis. Dictated by: Opal Smith M.D. on 02/24/2020 at 15:22 Approved by: Opal Smith M.D. on 02/24/2020 at 15:23
== END ==
PROVIDERS: Family Provider Family Medicine; Referring Provider Internal Medicine; Visit Provider Internal Medicine
DX: T84.021A Dislocation of internal left hip prosthesis, initial encounter (principal); M47.816 Spondylosis without myelopathy or radiculopathy, lumbar region; M16.11 Unilateral primary osteoarthritis, right hip; M17.12 Unilateral primary osteoarthritis, left knee; I70.90 Unspecified atherosclerosis; Z96.642 Presence of left artificial hip joint
CPT/HCPCS: 73502; 73590

== ENCOUNTER → 2020-02-25 16:24 | Outpatient (ROUT) | payer SELFPAY ==
[2020-02-05 19:25] VITALS: BMI 26.7
[2020-02-25 16:30] LABS: INR 2.6 (0.9-1.3); Prothrombin Time 29.9 SECONDS (10.1-12.7)
== END ==
PROVIDERS: Family Provider Family Medicine; Visit Provider Nurse Practitioner
DX: I48.91 Unspecified atrial fibrillation (principal)
CPT/HCPCS: 85610

== ENCOUNTER → 2020-03-02 11:28 | Outpatient (CLI) | payer MEDICARE, OTHER, SELFPAY ==
[2020-02-05 19:25] VITALS: BMI 26.7
--- NOTE | 2020-03-02 | DI.RAD.S_ITS ---
PROCEDURE: XR KNEE LT 1TO2V INDICATIONS: LEFT KNEE PAIN TECHNIQUE: 2 views of the knee were acquired. COMPARISON: None. FINDINGS: Bones: No fracture although evaluation severely limited by arthritic changes.. Severe left knee joint degeneration. Small to moderate joint effusion. Scattered vascular calcifications. IMPRESSION: Severe left knee joint degeneration Joint effusion Dictated by: Chung Shaw M.D. on 03/02/2020 at 17:11 Approved by: Chung Shaw M.D. on 03/02/2020 at 17:12
== END ==
PROVIDERS: Family Provider Family Medicine; PCP Internal Medicine; Referring Provider Nurse Practitioner; Visit Provider Nurse Practitioner
DX: M25.562 Pain in left knee (principal); M17.12 Unilateral primary osteoarthritis, left knee; M25.462 Effusion, left knee; M84.452D Pathological fracture, left femur, subsequent encounter for fracture with routine healing; R29.6 Repeated falls; Z96.642 Presence of left artificial hip joint
CPT/HCPCS: 73560

== ENCOUNTER → 2020-03-03 12:16 | Outpatient (ROUT) | payer SELFPAY ==
[2020-02-05 19:25] VITALS: BMI 26.7
[2020-03-03 12:35] LABS: INR 2.1 (0.9-1.3); Prothrombin Time 23.6 SECONDS (10.1-12.7)
== END ==
PROVIDERS: Family Provider Family Medicine; PCP Internal Medicine; Visit Provider Nurse Practitioner
DX: I48.91 Unspecified atrial fibrillation (principal)
CPT/HCPCS: 85610

== ENCOUNTER → 2020-03-12 09:14 | Outpatient (ROUT) | payer SELFPAY ==
[2020-02-05 19:25] VITALS: BMI 26.7
[2020-03-12 09:28] LABS: INR 2.3 (0.9-1.3); Prothrombin Time 26.3 SECONDS (10.1-12.7)
== END ==
PROVIDERS: Family Provider Family Medicine; PCP Internal Medicine; Visit Provider Nurse Practitioner
DX: I48.91 Unspecified atrial fibrillation (principal)
CPT/HCPCS: 85610

== ENCOUNTER 2020-04-12 12:42 | Emergency (ER) | payer MEDICARE, OTHER, SELFPAY ==
[2020-02-05 19:25] VITALS: BMI 26.7
[2020-04-12] VITALS (24 sets, daily range): BP systolic 110–145; BP diastolic 67–83; PULSE 66–141; RESP 15–36; TEMP 36.3; O2SAT 83–100; BMI 22.1
--- NOTE | 2020-04-12 12:48 | DI.RAD.S_ITS ---
PROCEDURE: XR CHEST 1V INDICATIONS: syncope TECHNIQUE: One view of the chest was acquired. COMPARISON: [facility], , CHEST 1 VIEW, 10/01/2013, 21:21. [facility], CR, XR CHEST 1V, 02/05/2020, 16:08. [facility], CR, XR CHEST 1V, 09/16/2018, 15:05. FINDINGS: Surgical changes and devices: Left pacemaker with right ventricular AICD lead and coronary sinus lead. Post median sternotomy and CABG. Lungs and pleura: Subtle opacity at the lung bases. Previously seen nodular opacity adjacent to the left heart border on CT 09/16/2018 is not definitely seen. No pleural effusions or pneumothorax. Mediastinum: Mediastinal contours appear normal. Heart size is prominent. Bones and chest wall: No suspicious bony lesions. Overlying soft tissues appear unremarkable. IMPRESSION: No acute cardiopulmonary abnormality. Subtle bibasilar airspace opacity most compatible with atelectasis. Left lower lobe pericardiac nodular opacity seen on prior CT is not well seen. -Recommend follow-up low-dose chest CT to exclude possible underlying pulmonary nodule. Dictated by: Kirk Hall M.D. on 04/12/2020 at 13:32 Approved by: Kirk Hall M.D. on 04/12/2020 at 13:38
--- NOTE | 2020-04-12 12:50 | ED.GIBLEED ---
HPI - GI Bleed General Chief complaint: GI Bleed Stated complaint: GI Bleed Time Seen by Provider: 04/12/20 12:48 Source: patient and EMS Mode of arrival: EMS Limitations: no limitations History of Present Illness HPI Narrative: Patient is an 79-year-old male with history of atrial fibrillation pacemaker on warfarin presenting with a syncopal episode and black stools. He said he started having 1 episode of black stool this morning. He got up and was feeling fine he ate breakfast and then suddenly did not feel well. He got extremely lightheaded he states that he did not pass out but when EMS arrived he was hypotensive and diaphoretic. He is overall feeling much better. He denies any chest pain dizziness palpitation short of breath abdominal pain. No prior history of GI bleeding. He also denies hitting his head. He states he overall just feels weak and fatigued. Severity: mild Relieving factors: none Exacerbating factors: none Related Data Home Medications Medication Instructions Recorded Confirmed Fish Oil 1,000 mg PO DAILY #0 12/26/02/07/20 anastrozole 0.5 mg PO 2XW 09/16/18 02/05/20 carvedilol 25 mg PO BID 09/16/18 02/05/20 levothyroxine 50 mcg PO DAILY 09/16/18 02/05/20 spironolactone 12.5 mg PO BID 09/16/18 02/05/20 testosterone 1 applic TOPICAL DIRECTED 09/16/18 02/05/20 thyroid (pork) 45 mg PO DAILY 09/16/18 02/07/20 warfarin [Coumadin] See Rx Instructions .ROUTE .COMPLEX 02/07/20 02/07/20 warfarin [Coumadin] See Rx Instructions .ROUTE .COMPLEX 02/07/20 02/07/20 Previous Rx's Medication Instructions Recorded furosemide 60 mg PO DAILY #0 tab 09/19/18 lisinopril 5 mg PO DAILY #30 tab 09/19/18 acetaminophen 975 mg PO TID #30 tab 02/08/20 calcium carbonate-vitamin D3 1 ea PO BIDWM #60 tab 02/08/20 [Oyster Shell Calcium-Vit D3] docusate sodium [DOK] 100 mg PO BID #60 cap 02/08/20 oxycodone 5 mg PO Q4HR PRN #10 tab 02/08/20 polyethylene glycol 3350 17 g PO DAILY #30 ea 02/08/20 Allergies Allergy/AdvReac Type Severity Reaction Status Date / Time No Known Drug Allergies Allergy Verified 04/12/20 12:53 Review of Systems Review of Systems ROS Unobtainable: All systems reviewed & are unremarkable except as noted in HPI and below Constitutional Constitutional: Denies chills, Denies fever(s), Denies frequent falls, Denies lethargy and Reports weakness ENT Ears, Nose, Mouth, and Throat: Denies vertigo and Denies dizziness Cardiovascular Cardiovascular: Reports as per HPI, Denies chest pain, Reports syncope, Reports lightheadedness, Denies dyspnea and Denies dyspnea on exertion Respiratory Respiratory: Denies cough, Denies dyspnea, Denies dyspnea on exertion and Denies wheezing Gastrointestinal Gastrointestinal: Reports as per HPI Musculoskeletal Musculoskeletal: Denies back pain and Denies myalgias Integumentary/Breasts Skin/Breast: Denies pruritus, Denies erythema, Denies rash and Denies wounds Neurologic Neurologic: Denies vertigo, Denies dizziness, Reports syncope, Denies frequent falls and Reports weakness Allergic/Immunologic Allergic/Immunologic: Denies wheezing Patient History Medical History Atrial fibrillation (Acute) Cardiac valvular malformation (Acute) Congestive heart failure (Acute) Current use of long term acute care registered nurse anticoagulation (Acute) Hypertension (Acute) Hypothyroid (Acute) Pacemaker (Acute) Surgical History History of heart valve repair (Acute) Status post biventricular pacemaker (Acute) Status post cardiac catheterization (12/25/07) Status post hernia repair Status post transurethral resection of prostate Family History Father Heart disease Mother Heart disease Social History household members: none Smoking Status: Never smoker Smoking Status: Never smoker alcohol intake frequency: holidays/special occasions only Substance Use Type: does not use Exam Initial Vital Signs Initial Vital Signs: Vital Signs Temperature 97.4 F L 04/12/20 12:45 Pulse Rate 70 04/12/20 12:45 Respiratory Rate 20 04/12/20 12:45 Blood Pressure 110/70 04/12/20 12:45 GENERAL: Alert elderly male and in no acute distress. HEENT: Head atraumatic,EOMI, pupils reactive, face symmetric, moist mucous membranes CARDIOVASCULAR: Regular rate and rhythm without murmurs, rubs or gallops. RESPIRATORY: Breath sounds equal bilaterally, no wheezes rales or rhonchi. ABDOMEN: Soft, nontender. Normoactive bowel sounds all 4 quadrants. No guarding or rebound. RECTAL: Hemoccult-negative, no hemorrhoids, nontender EXTREMITIES: Normal range of motion, no clubbing or edema. Neurovascularly intact NEUROLOGICAL: Alert and oriented x4.Normal gait and speech. SKIN: Warm, dry, no laceration, no petechiae, no rashes or lesions. Course Orders Ordered: ED Orders 04/12/20 12:48 XR chest 1V Stat EKG-12 Lead Stat 04/12/20 12:50 Complete Blood Count AUTO DIFF Stat Comprehensive Metabolic Panel Stat Lactate (Lactic Acid) Stat Lipase Stat NT-proBNP (BNP-Adult 18+) Stat Partial Thromboplastin Time Stat Prothrombin Time INR Stat Troponin & CK Cardiac Panel Stat 04/12/20 12:52 COVID19 -ED/INPAT/OR/L&D Stat 04/12/20 14:29 CT angio chest PE protocol Stat 04/12/20 14:43 Consult to PRESCHOOL DISABILITY TEACHER - Metal Die Finisher Stat 04/12/20 15:26 ABG [Arterial Blood Gas] Stat 04/12/20 15:28 Arterial Blood Gas Stat 04/12/20 15:30 Urinalysis and Microscopic Stat 04/12/20 15:46 Arterial Blood Gas Routine Sodium Chloride (Normal Saline 0.9%) 1,000 mls @ 150 mls/hr IV CONT MARSHALL Last Infusion: 04/12/20 17:41 Dose: 0 mls/hr Documented by: Admin: 04/12/20 14:01 Dose: 150 mls/hr Documented by: NATHALIA Discontinued Medications Furosemide (Lasix) 40 mg IV NOW ONE Stop: 04/12/20 17:10 Last Admin: 04/12/20 17:44 Dose: 20 mg Documented by: KIM Pantoprazole Sodium (Protonix) 40 mg IV NOW ONE Stop: 04/12/20 12:49 Last Admin: 04/12/20 14:01 Dose: 40 mg Documented by: NATHALIA Vital Signs Vital signs: Vital Signs - 8 hr 04/12/20 12:45 04/12/20 12:55 04/12/20 13:00 Temperature 97.4 F L Pulse Rate 70 70 70 Respiratory Rate 20 21 22 Blood Pressure 110/70 121/73 Pulse Oximetry 98 98 04/12/20 13:15 04/12/20 13:30 04/12/20 13:45 Temperature Pulse Rate 70 70 89 Respiratory Rate 18 25 H 36 H Blood Pressure 145/76 H Pulse Oximetry 94 93 100 04/12/20 14:00 04/12/20 14:11 04/12/20 14:15 Temperature Pulse Rate 70 70 Respiratory Rate 20 21 Blood Pressure 115/72 Pulse Oximetry 83 L 92 100 04/12/20 14:30 04/12/20 14:31 04/12/20 14:48 Temperature Pulse Rate 70 70 70 Respiratory Rate 18 18 19 Blood Pressure 144/75 H Pulse Oximetry 98 97 100 04/12/20 15:00 04/12/20 15:15 04/12/20 15:30 Temperature Pulse Rate 141 H 70 70 Respiratory Rate 25 H 15 16 Blood Pressure Pulse Oximetry 100 91 88 L 04/12/20 15:45 04/12/20 16:00 04/12/20 16:15 Temperature Pulse Rate 70 70 70 Respiratory Rate 20 16 23 Blood Pressure Pulse Oximetry 99 96 94 04/12/20 16:30 04/12/20 16:45 04/12/20 17:04 Temperature Pulse Rate 70 70 71 Respiratory Rate 17 22 Blood Pressure Pulse Oximetry 98 90 L 04/12/20 17:15 04/12/20 17:16 Temperature Pulse Rate 77 71 Respiratory Rate Blood Pressure 134/83 Pulse Oximetry 88 L 96 MDM - GI Bleed Lab Data Attestation: I reviewed the patient's lab results. Result diagrams: 04/12/20 12:50 04/12/20 12:50 Labs: Lab Results 04/12/20 04/12/20 04/12/20 Range/Units 12:50 12:50 12:50 WBC 7.4 (4.5-11.0) X10^3/uL RBC 4.29 L (4.5-5.9) X10^6/uL Hgb 13.9 (13.5-17.5) g/dL Hct 41.2 (41-53) % MCV 95.9 (80-100) fL MCH 32.4 (26-34) PG MCHC 33.8 (30-36) % RDW 16.0 H (11.6-14.8) % Plt Count 171 (150-400) X10^3/uL Neut % (Auto) 66.2 (50-75) % Lymph % (Auto) 21.0 L (25-40) % Grant % (Auto) 10.5 (3-14) % Eos % (Auto) 1.5 L (2-4) % Baso % (Auto) 0.8 (0-2) % Neut # (Auto) 4900 (8990-0101) /uL Lymph # (Auto) 1600 (0662-5591) /uL Grant # (Auto) 800 (0-900) /uL Eos # (Auto) 100 (0-450) /uL Baso # (Auto) 100 (0-100) /uL PT 19.6 H (10.1-12.7) SECONDS INR 1.7 H (0.9-1.3) APTT 32 D (26.4-36.2) SECONDS ABG pH (7.35-7.45) ABG pCO2 (35-45) mmHg ABG pO2 (80-100) mmHg ABG HCO3 (22-26) mmol/L ABG Total CO2 (21-31) mmol/L ABG O2 Saturation (95-100) % ABG Base Excess (-2-2) mmol/L FiO2 Sodium 130 L (137-145) mmol/L Potassium 4.8 (3.4-5.1) mmol/L Chloride 96 L (98-107) mmol/L Carbon Dioxide 28 (22-32) mmol/L BUN 48 H (9-20) mg/dL Creatinine 1.69 H (0.66-1.25) mg/dL Estimated GFR 39.2 L (>60) mL/min BUN/Creatinine Ratio 28.4 H (6-22) Glucose 101 (80-110) mg/dL Lactate (0.7-2.1) mmol/L Calcium 9.2 (8.4-10.2) mg/dL Total Bilirubin 1.1 (0.2-1.3) mg/dL AST 33 (17-59) IU/L ALT 29 (<50) IU/L Alkaline Phosphatase 59 (38-126) U/L Total Creatine Kinase 28 L (55-170) U/L CK-MB (CK-2) TNP CK-MB (CK-2) Rel Index TNP Troponin I 0.027 (0.01-0.034) ng/mL NT-Pro-B Natriuret Pep (<450) pg/mL Total Protein 7.0 (6.3-8.2) g/dL Albumin 3.8 (3.5-5.0) g/dL Globulin 3.2 (1.7-4.1) g/dL Albumin/Globulin Ratio 1.2 (1.0-2.8) Lipase 261 (23-300) U/L Urine Color Urine Appearance Urine pH (4.5-8.0) Ur Specific [place] (1.000-1.035) Urine Protein (Negative) Urine Glucose (UA) (Negative) g/dL Urine Ketones (NEGATIVE) Urine Occult Blood (Negative) Urine Nitrate (Negative) Urine Bilirubin (NEGATIVE) Urine Urobilinogen (0.2) E.U./dL Ur Leukocyte Esterase (NEGATIVE) Urine RBC (0-5/HPF) Urine WBC (0-5/HPF) Urine Bacteria (None) Ur Culture Indicated? COVID-19 PCR (Negative) 04/12/20 04/12/20 04/12/20 Range/Units 12:50 12:50 12:52 WBC (4.5-11.0) X10^3/uL RBC (4.5-5.9) X10^6/uL Hgb (13.5-17.5) g/dL Hct (41-53) % MCV (80-100) fL MCH (26-34) PG MCHC (30-36) % RDW (11.6-14.8) % Plt Count (150-400) X10^3/uL Neut % (Auto) (50-75) % Lymph % (Auto) (25-40) % Grant % (Auto) (3-14) % Eos % (Auto) (2-4) % Baso % (Auto) (0-2) % Neut # (Auto) (7142-0346) /uL Lymph # (Auto) (7825-4800) /uL Grant # (Auto) (0-900) /uL Eos # (Auto) (0-450) /uL Baso # (Auto) (0-100) /uL PT (10.1-12.7) SECONDS INR (0.9-1.3) APTT (26.4-36.2) SECONDS ABG pH (7.35-7.45) ABG pCO2 (35-45) mmHg ABG pO2 (80-100) mmHg ABG HCO3 (22-26) mmol/L ABG Total CO2 (21-31) mmol/L ABG O2 Saturation (95-100) % ABG Base Excess (-2-2) mmol/L FiO2 Sodium (137-145) mmol/L Potassium (3.4-5.1) mmol/L Chloride (98-107) mmol/L Carbon Dioxide (22-32) mmol/L BUN (9-20) mg/dL Creatinine (0.66-1.25) mg/dL Estimated GFR (>60) mL/min BUN/Creatinine Ratio (6-22) Glucose (80-110) mg/dL Lactate 0.9 (0.7-2.1) mmol/L Calcium (8.4-10.2) mg/dL Total Bilirubin (0.2-1.3) mg/dL AST (17-59) IU/L ALT (<50) IU/L Alkaline Phosphatase (38-126) U/L Total Creatine Kinase (55-170) U/L CK-MB (CK-2) CK-MB (CK-2) Rel Index Troponin I (0.01-0.034) ng/mL NT-Pro-B Natriuret Pep 1950 H (<450) pg/mL Total Protein (6.3-8.2) g/dL Albumin (3.5-5.0) g/dL Globulin (1.7-4.1) g/dL Albumin/Globulin Ratio (1.0-2.8) Lipase (23-300) U/L Urine Color Urine Appearance Urine pH (4.5-8.0) Ur Specific [place] (1.000-1.035) Urine Protein (Negative) Urine Glucose (UA) (Negative) g/dL Urine Ketones (NEGATIVE) Urine Occult Blood (Negative) Urine Nitrate (Negative) Urine Bilirubin (NEGATIVE) Urine Urobilinogen (0.2) E.U./dL Ur Leukocyte Esterase (NEGATIVE) Urine RBC (0-5/HPF) Urine WBC (0-5/HPF) Urine Bacteria (None) Ur Culture Indicated? COVID-19 PCR Negative (Negative) 04/12/20 04/12/20 Range/Units 15:30 15:46 WBC (4.5-11.0) X10^3/uL RBC (4.5-5.9) X10^6/uL Hgb (13.5-17.5) g/dL Hct (41-53) % MCV (80-100) fL MCH (26-34) PG MCHC (30-36) % RDW (11.6-14.8) % Plt Count (150-400) X10^3/uL Neut % (Auto) (50-75) % Lymph % (Auto) (25-40) % Grant % (Auto) (3-14) % Eos % (Auto) (2-4) % Baso % (Auto) (0-2) % Neut # (Auto) (2699-5045) /uL Lymph # (Auto) (6288-2380) /uL Grant # (Auto) (0-900) /uL Eos # (Auto) (0-450) /uL Baso # (Auto) (0-100) /uL PT (10.1-12.7) SECONDS INR (0.9-1.3) APTT (26.4-36.2) SECONDS ABG pH 7.43 (7.35-7.45) ABG pCO2 33.8 L (35-45) mmHg ABG pO2 84 (80-100) mmHg ABG HCO3 22 (22-26) mmol/L ABG Total CO2 23 (21-31) mmol/L ABG O2 Saturation 97 (95-100) % ABG Base Excess -2.0 (-2-2) mmol/L FiO2 0.21 Sodium (137-145) mmol/L Potassium (3.4-5.1) mmol/L Chloride (98-107) mmol/L Carbon Dioxide (22-32) mmol/L BUN (9-20) mg/dL Creatinine (0.66-1.25) mg/dL Estimated GFR (>60) mL/min BUN/Creatinine Ratio (6-22) Glucose (80-110) mg/dL Lactate (0.7-2.1) mmol/L Calcium (8.4-10.2) mg/dL Total Bilirubin (0.2-1.3) mg/dL AST (17-59) IU/L ALT (<50) IU/L Alkaline Phosphatase (38-126) U/L Total Creatine Kinase (55-170) U/L CK-MB (CK-2) CK-MB (CK-2) Rel Index Troponin I (0.01-0.034) ng/mL NT-Pro-B Natriuret Pep (<450) pg/mL Total Protein (6.3-8.2) g/dL Albumin (3.5-5.0) g/dL Globulin (1.7-4.1) g/dL Albumin/Globulin Ratio (1.0-2.8) Lipase (23-300) U/L Urine Color Yellow Urine Appearance Clear Urine pH 7.0 (4.5-8.0) Ur Specific [place] 1.010 (1.000-1.035) Urine Protein Negative (Negative) Urine Glucose (UA) Negative (Negative) g/dL Urine Ketones Negative (NEGATIVE) Urine Occult Blood Negative (Negative) Urine Nitrate Negative (Negative) Urine Bilirubin Negative (NEGATIVE) Urine Urobilinogen 0.2 (0.2) E.U./dL Ur Leukocyte Esterase Negative (NEGATIVE) Urine RBC None seen (0-5/HPF) Urine WBC 0-1/hpf (0-5/HPF) Urine Bacteria Few (2-10) H (None) Ur Culture Indicated? Cult not indicated COVID-19 PCR (Negative) Point of Care Testing Stool Occult Blood Negative [facility] Narrative Medical decision making narrative: Patient is guaiac negative hemodynamically stable hemoglobin hematocrit are within normal limits. No sign of acute active bleeding at this time. Nursing just informed me that he has 84% on room air with a good waveform on the monitor, however it is in ear pulse oximeter and patient is not in any sort of respiratory distress or complaining of any respiratory symptoms. This may explain some of his weakness. No ambulation trial at this time. ABG confirms he is not hypoxic ambulation trial. The CT angio is negative for PE The patient ambulates with walker without difficulty. Discussed case with hospitalist at this time there is no admittable diagnosis At this time patient is awake and alert he is able to ambulate and seems to be able to care for himself. No indication for any hospitalization at this time. I have discussed this with his friend who is also his DPOA. Social work was consulted however patient was not interested in talking with him. Discharge Plan Departure Patient Disposition: Home Clinical Impression: Weakness Instructions: DI for Muscle Weakness Activity Restrictions/Additional Instructions: *You have been diagnosed with weakness *What to do: At this time no evidence of bleeding, no identified reason for your weakness. Please be sure that you are taking her water pill to help with your breathing *Continue to take medications as directed *Follow up with your primary care provider in 2-3 days *Return to ER if you should have increasing weakness, passing out, chest, or any new, worsening or concerning symptoms Prescriptions: No Action Fish Oil 1,000 mg PO DAILY Qty: 0 RF: 0 anastrozole 1 mg tablet 0.5 mg PO 2XW RF: 0 carvedilol 25 mg tablet 25 mg PO BID RF: 0 spironolactone 25 mg tablet 12.5 mg PO BID RF: 0 levothyroxine 50 mcg tablet 50 mcg PO DAILY RF: 0 thyroid (pork) 15 mg tablet 45 mg PO DAILY RF: 0 testosterone 1 applic topical DIRECTED RF: 0 furosemide 40 mg tablet 60 mg PO DAILY Qty: 0 RF: 0 lisinopril 5 mg tablet 5 mg PO DAILY Qty: 30 RF: 0 warfarin [Coumadin] 4 mg Tablet See Rx Instructions .ROUTE .COMPLEX RF: 0 warfarin [Coumadin] 3 mg Tablet See Rx Instructions .ROUTE .COMPLEX RF: 0 acetaminophen 325 mg Tablet 975 mg PO TID Qty: 30 RF: 0 docusate sodium [DOK] 100 mg Capsule 100 mg PO BID Qty: 60 RF: 0 calcium carbonate-vitamin D3 [Oyster Shell Calcium-Vit D3] 500 mg(1,250mg) -200 unit Tablet 1 ea PO BIDWM Qty: 60 RF: 0 oxycodone 5 mg Tablet 5 mg PO Q4HR PRN (Reason: Pain, Moderate (4-6)) Qty: 10 RF: 0 polyethylene glycol 3350 17 gram Powder In Packet 17 g PO DAILY Qty: 30 RF: 0 Referrals: Matt Arenas MD [Primary Care Provider] -
[2020-04-12 12:59] LABS: Add Manual Diff / Slide Review NO; Basophils Absolute Auto 100 /uL (0-100); Basophils Percent Auto 0.8 % (0-2); Eosinophils Absolute Auto 100 /uL (0-450); Eosinophils Percent Auto 1.5 % (2-4); Hematocrit 41.2 % (41-53); Hemoglobin 13.9 g/dL (13.5-17.5); Lymphocytes Absolute Auto 1600 /uL (1100-4500); Mean Corpuscular HGB Conc 33.8 % (30-36); Mean Corpuscular Hemoglobin 32.4 PG (26-34); Mean Corpuscular Volume 95.9 fL (80-100); Monocytes Absolute Auto 800 /uL (0-900); Monocytes Percent Auto 10.5 % (3-14); Neutrophils Absolute Auto 4900 /uL (1500-7000); Neutrophils Percent Auto 66.2 % (50-75); Platelet Count 171 X10^3/uL (150-400); Red Blood Cell Count 4.29 X10^6/uL (4.5-5.9); White Blood Cell Count 7.4 X10^3/uL (4.5-11.0)
[2020-04-12 13:03] LABS: INR 1.7 (0.9-1.3); Prothrombin Time 19.6 SECONDS (10.1-12.7)
[2020-04-12 13:06] LABS: PTT Partial Thromboplastin Tim 32 SECONDS (26.4-36.2)
[2020-04-12 13:08] LABS: Albumin 3.8 g/dL (3.5-5.0); Albumin Globulin Ratio 1.2 (1.0-2.8); Alkaline Phosphatase 59 U/L (38-126); Aspartate Aminotransferase 33 IU/L (17-59); BUN Creatinine Ratio 28.4 (6-22); Bilirubin Total 1.1 mg/dL (0.2-1.3); Blood Urea Nitrogen 48 mg/dL (9-20); Calcium 9.2 mg/dL (8.4-10.2); Carbon Dioxide 28 mmol/L (22-32); Chloride 96 mmol/L (98-107); Creatine Kinase 28 U/L (55-170); Estimated Glomerular Filt Rate 39.2 mL/min (>60); Globulin 3.2 g/dL (1.7-4.1); Glucose 101 mg/dL (80-110); Lipase 261 U/L (23-300); Potassium 4.8 mmol/L (3.4-5.1); Sodium 130 mmol/L (137-145)
[2020-04-12 13:09] LABS: Alanine Aminotransferase 29 IU/L (<50); HEMOLYSIS 16 (0-50); Lactate (Lactic Acid) 0.9 mmol/L (0.7-2.1)
[2020-04-12 13:20] LABS: Troponin I 0.027 ng/mL (0.01-0.034)
[2020-04-12] MEDS: PANTOPRAZOLE 40 MG VIAL IV (14:01)
[2020-04-12] MEDS: SODIUM CHLORIDE 0.9% 1,000 ML 150 ML IV (14:01)
--- NOTE | 2020-04-12 14:29 | DI.CT.S_ITS ---
PROCEDURE: CT ANGIO CHEST PE PROTOCOL INDICATIONS: hypoxia weakness TECHNIQUE: After the administration of intravenous contrast, 2 mm thick sections acquired from the pulmonary apices to the posterior costophrenic angles. 3-dimensional maximum intensity projection (MIP) coronal and sagittal reformats were then acquired through the thorax. For radiation dose reduction, the following was used: automated exposure control, adjustment of mA and/or kV according to patient size. COMPARISON: [facility], CT, CT ABDOMEN PELVIS W CON, 09/16/2018, 15:31. FINDINGS: Image quality: Excellent. Diagnostic to the level of the segmental pulmonary arteries. Pulmonary arteries: Pulmonary arteries are normal in size, and demonstrate no intraluminal filling defects to suggest pulmonary embolism. Lungs and pleura: Mild ill-defined bibasilar airspace opacity. Numerous punctate calcified pleural nodules bilaterally and along the right major fissure. No mass. No pleural effusions or pneumothorax. Central and peripheral airways are patent. Mediastinum: Left-sided pacemaker with right ventricular AICD lead and coronary sinus lead. Heart size is enlarged, particularly the left atrium. Right atrium is also enlarged. Trace pericardial fluid. Shotty mediastinal lymph nodes, (4/60). Thoracic aorta is normal in caliber and enhancement. Esophagus is normal in caliber, without hiatal hernia. Bones and chest wall: Bilateral gynecomastia. No suspicious bony lesions. Ribs and thoracic spine appear intact throughout. Thyroid gland is unremarkable. No axillary adenopathy. Suspect enlarged left supraclavicular lymph node measuring 1.5 x 1.2 cm, (4/20). Abdomen: Nodular appearing liver. Thickening of the adrenal glands, particularly on the left and similar to the CT from 09/16/2018. No free fluid. Varicosity in the left upper abdomen. IMPRESSION: 1. No central pulmonary embolism. 2. Mild bibasilar atelectasis. 3. Numerous punctate calcified pleural nodules bilaterally and along the right major fissure. This is most likely due to prior granulomatous process. Calcified pleural plaques could have a similar appearance. 4. Shotty mediastinal lymph nodes which could be reactive. Enlarged left supraclavicular lymph node. Consider further evaluation with targeted left supraclavicular ultrasound and possible ultrasound-guided biopsy. 5. Cardiomegaly. 6. Question of cirrhosis. -abdominal ultrasound or ultrasound-guided biopsy of the liver may be helpful for diagnosis. 7. Similar thickening of the adrenal glands compared to September 2018. Dictated by: Kirk Hall M.D. on 04/12/2020 at 15:05 Approved by: Kirk Hall M.D. on 04/12/2020 at 15:23
[2020-04-12 14:46] LABS: COVID19 -Nasal RAPID Negative (Negative)
[2020-04-12 14:56] LABS: NT-proBNP (BNP-Adult 18+) 1950 pg/mL (<450)
--- NOTE | 2020-04-12 15:36 | PC.NURSE ---
Pt is AAO x 3. Ambulatory. Resting in bed intermittently sleeping. having intermittent hypoxia. Pt noted to be 81% on RA and placed on 3L O2 and improved to 93%. RT called for ABG and placed on RA for accuracy. Pt noted to have 75% sat on RA while obtaining ABG. Pt AAO. Sat pt up in bed from semi fowlers to high fowlers and sat improved to 100%. O2 decreased to 2L. Dr Winston made aware.
[2020-04-12 15:56] LABS: RBC Urine None Seen (0-5/HPF)
[2020-04-12 16:02] LABS: Appearance Urine UA CLEAR; Bilirubin Urine UA NEGATIVE (NEGATIVE); Color Urine UA YELLOW; Glucose Urine UA NEGATIVE (Negative); Ketones Urine UA NEGATIVE (NEGATIVE); Leukocyte Esterase Urine UA NEGATIVE (NEGATIVE); Nitrite Urine UA NEGATIVE (Negative); Occult Blood Urine UA NEGATIVE (Negative); Protein Urine UA NEGATIVE (Negative); Urobilinogen Urine UA 0.2 E.U./dL (0.2)
[2020-04-12 16:12] LABS: Bacteria Urine Few (2-10); WBC Urine 0-1/HPF (0-5/HPF)
[2020-04-12 16:13] LABS: Culture Indicated Urine Cult Not Indicated
--- NOTE | 2020-04-12 16:21 | CM.SWNOTE ---
CONTRACT NEGOTIATION MANAGER note CONTRACT NEGOTIATION MANAGER consult requested for patient. Patient is a 79 y/o male who presents to ED for concern of black stool and syncopal episode. Per Dr. Winston, patient not going to be admitted, and patient's friend has expressed some concern regarding patient's wellbeing. CONTRACT NEGOTIATION MANAGER enters room and introduces self and role to patient. Patient appears A+O x4, and is guarded in his communication. Patient states he has his needs met in home, denies interest in any additional support. Patient expresses suspicion over CONTRACT NEGOTIATION MANAGER's involvement in care, and asks why did they call you? multiple times during brief meeting. CONTRACT NEGOTIATION MANAGER explained CONTRACT NEGOTIATION MANAGER's role is intended supportive in patient's care. Patient states he would like to know what is causing his symptoms and CONTRACT NEGOTIATION MANAGER informs patient he will pass this message onto provider. CONTRACT NEGOTIATION MANAGER staffs with Dr. Winston. Dr. Winston will d/c to home, and CONTRACT NEGOTIATION MANAGER will attempt follow up call with patient. ONESIMO Harrell
[2020-04-12 16:36] LABS: PCO2 ABG 33.8 mmHg (35-45); pH ABG 7.43 (7.35-7.45)
[2020-04-12 16:37] LABS: HCO3 ABG 22 mmol/L (22-26); Oxygen Saturation ABG 97 % (95-100); PO2 ABG 84 mmHg (80-100); TCO2 ABG 23 mmol/L (21-31)
[2020-04-12 16:38] LABS: Fractionated Inspired Oxygen 0.21
--- NOTE | 2020-04-12 17:23 | PC.NURSE ---
Patient ambulated with the walker outside of the room. Patients only complaint is feeling weak. Patient sitting up in bed eating dinner.
--- NOTE | 2020-04-12 17:24 | PC.NURSE ---
Pt sitting up in bed eating at this time on RA. appears comfortable. NAD
--- NOTE | 2020-04-12 17:26 | PC.NURSE ---
We assisted the patient into his clothes and boots to ambulate. He ambulated with a walker outside of the room with the only complaint of weakness, which he stated he felt before getting up. Patient is now eating dinner.
[2020-04-12] MEDS: FUROSEMIDE 40 MG/4 ML VIAL IV (17:44)
== END 2020-04-12 19:06 | disposition home or self-care (01) ==
PROVIDERS: Emergency Provider Emergency Medicine; Family Provider Family Medicine; PCP Internal Medicine
DX: R53.1 Weakness (principal); R55 Syncope and collapse; I48.91 Unspecified atrial fibrillation; Z79.01 Long term (current) use of anticoagulants; Z95.0 Presence of cardiac pacemaker
CPT/HCPCS: 36415; 36600; 71045; 71275; 80053; 81001; 82272; 82550; 82805; 83605; 83690; 83880; 84484; 85025; 85610; 85730; 87635; 93005; 96361; 96374; 96375; 99285; C9113; J1940; Q9967

== ENCOUNTER 2020-04-15 14:18 | Emergency (ER) | payer MEDICARE, OTHER, SELFPAY ==
[2020-04-15] VITALS (7 sets, daily range): BP systolic 126–143; BP diastolic 78–83; PULSE 69; RESP 12–22; TEMP 36.8; O2SAT 95–97; BMI 23.6
[2020-04-15 14:53] LABS: Add Manual Diff / Slide Review NO; Basophils Absolute Auto 100 /uL (0-100); Eosinophils Absolute Auto 200 /uL (0-450); Hematocrit 41.1 % (41-53); Hemoglobin 13.7 g/dL (13.5-17.5); Lymphocytes Absolute Auto 1900 /uL (1100-4500); Lymphocytes Percent Auto 24.4 % (25-40); Mean Corpuscular HGB Conc 33.4 % (30-36); Mean Corpuscular Hemoglobin 32.1 PG (26-34); Monocytes Absolute Auto 700 /uL (0-900); Monocytes Percent Auto 8.7 % (3-14); Neutrophils Absolute Auto 4900 /uL (1500-7000); Neutrophils Percent Auto 63.9 % (50-75); Platelet Count 172 X10^3/uL (150-400); Red Blood Cell Count 4.28 X10^6/uL (4.5-5.9); Red Cell Distribution Width 15.9 % (11.6-14.8); White Blood Cell Count 7.7 X10^3/uL (4.5-11.0)
[2020-04-15 15:00] LABS: INR 1.9 (0.9-1.3); Prothrombin Time 22.2 SECONDS (10.1-12.7)
[2020-04-15 15:03] LABS: PTT Partial Thromboplastin Tim 30 SECONDS (26.4-36.2)
[2020-04-15 15:04] LABS: Lactate (Lactic Acid) 1.1 mmol/L (0.7-2.1)
[2020-04-15 15:05] LABS: Alanine Aminotransferase 32 IU/L (<50); Albumin 3.8 g/dL (3.5-5.0); Albumin Globulin Ratio 1.2 (1.0-2.8); Alkaline Phosphatase 60 U/L (38-126); Aspartate Aminotransferase 37 IU/L (17-59); BUN Creatinine Ratio 37.5 (6-22); Bilirubin Total 1.1 mg/dL (0.2-1.3); Blood Urea Nitrogen 60 mg/dL (9-20); Calcium 9.1 mg/dL (8.4-10.2); Carbon Dioxide 26 mmol/L (22-32); Chloride 99 mmol/L (98-107); Creatine Kinase 31 U/L (55-170); Estimated Glomerular Filt Rate 41.8 mL/min (>60); Globulin 3.3 g/dL (1.7-4.1); Glucose 97 mg/dL (80-110); HEMOLYSIS 21 (0-50); Lipase 244 U/L (23-300); Potassium 4.7 mmol/L (3.4-5.1); Sodium 132 mmol/L (137-145); Total Protein 7.1 g/dL (6.3-8.2)
--- NOTE | 2020-04-15 15:12 | ED_ITS ---
HPI - General Adult General Chief complaint: Abdominal Pain Stated complaint: blood in stool, feel bad Time Seen by Provider: 04/15/20 14:24 Source: patient Mode of arrival: Wheelchair Limitations: no limitations History of Present Illness HPI narrative: Patient is an 79-year-old male. Was seen here in the emergency department a couple days ago and evaluated for complaints of dark black colored stools. Patient is on Coumadin secondary to having a pacemaker/defibrillator. Review of that note shows that his vital signs are unremarkable. His hemoglobin hematocrit unremarkable. He actually had a negative Hemoccult. He was discharged home with instructions to follow-up. He states that today he had 1 episode of bright red blood when he use the restroom. It was not painful. He has no abdominal pain. He has not been vomiting. He states that he generally does not feel very well. He denies any other associated symptoms. Has not had any changes in his Coumadin. Has a follow-up with his primary doctor being in next week. Related Data Home Medications Medication Instructions Recorded Confirmed Fish Oil 1,000 mg PO DAILY #0 12/26/02/07/20 anastrozole 0.5 mg PO 2XW 09/16/18 02/05/20 carvedilol 25 mg PO BID 09/16/18 02/05/20 levothyroxine 50 mcg PO DAILY 09/16/18 02/05/20 spironolactone 12.5 mg PO BID 09/16/18 02/05/20 testosterone 1 applic TOPICAL DIRECTED 09/16/18 02/05/20 thyroid (pork) 45 mg PO DAILY 09/16/18 02/07/20 warfarin [Coumadin] See Rx Instructions .ROUTE .COMPLEX 02/07/20 02/07/20 warfarin [Coumadin] See Rx Instructions .ROUTE .COMPLEX 02/07/20 02/07/20 Previous Rx's Medication Instructions Recorded furosemide 60 mg PO DAILY #0 tab 09/19/18 lisinopril 5 mg PO DAILY #30 tab 09/19/18 acetaminophen 975 mg PO TID #30 tab 02/08/20 calcium carbonate-vitamin D3 1 ea PO BIDWM #60 tab 02/08/20 [Oyster Shell Calcium-Vit D3] docusate sodium [DOK] 100 mg PO BID #60 cap 02/08/20 oxycodone 5 mg PO Q4HR PRN #10 tab 02/08/20 polyethylene glycol 3350 17 g PO DAILY #30 ea 02/08/20 Allergies Allergy/AdvReac Type Severity Reaction Status Date / Time No Known Drug Allergies Allergy Verified 04/12/20 12:53 Review of Systems Constitutional Constitutional: Reports fatigue, Denies fever(s), Denies headache(s) and Reports malaise ENT Ears, Nose, Mouth, and Throat: Denies headache(s) Cardiovascular Cardiovascular: Denies chest pain, Denies rapid heart rate and Denies dyspnea Respiratory Respiratory: Denies dyspnea Gastrointestinal Gastrointestinal: Denies melena, Reports hematochezia, Denies coffee ground emesis, Denies constipation, Denies diarrhea, Denies nausea and Denies vomiting Genitourinary Genitourinary: Denies dysuria Genitourinary: Denies dysuria Musculoskeletal Musculoskeletal: Denies arthralgias and Denies myalgias Integumentary/Breasts Skin/Breast: Denies lesions and Denies rash Neurologic Neurologic: Denies behavioral changes and Denies headache(s) Psychiatric Psychiatric: Denies behavioral changes Endocrine Endocrine: Reports fatigue Hematologic/Lymphatic Comments: On Coumadin Allergic/Immunologic Allergic/Immunologic: Denies urticaria Patient History Medical History Atrial fibrillation (Acute) Cardiac valvular malformation (Acute) Congestive heart failure (Acute) Current use of custodial anticoagulation (Acute) Hypertension (Acute) Hypothyroid (Acute) Pacemaker (Acute) Surgical History History of heart valve repair (Acute) Status post biventricular pacemaker (Acute) Status post cardiac catheterization (12/25/07) Status post hernia repair Status post transurethral resection of prostate Family History Father Heart disease Mother Heart disease Social History household members: none Smoking Status: Never smoker Smoking Status: Never smoker alcohol intake frequency: holidays/special occasions only Substance Use Type: does not use Exam Initial Vital Signs Initial Vital Signs: Vital Signs Temperature 98.3 F 04/15/20 14:48 Pulse Rate 69 04/15/20 14:48 Respiratory Rate 14 04/15/20 14:48 Pulse Oximetry 95 04/15/20 14:48 Const General: cooperative and comfortable Limitations: mental status not altered HENMT Head: normal to inspection and normocephalic Resp Effort & Inspection: normal respiratory effort Auscultation: clear to auscultation bilaterally Cardio Rate: regular rate Rhythm: regular rhythm Pulses: radial pulses present GI Palpation: soft, No firm and No tender Auscultation: normal bowel sounds Rectal Exam: visual inspection normal, heme positive stool, No hemorrhoids and No laceration Skin Lesions: no lesions Rashes: no rashes Neuro General: patient alert and patient awake Cognition: normal cognition Speech: speech normal Extrem General: normal to inspection and capillary refill normal Psych Appearance: grossly normal and well kempt Course Orders Ordered: ED Orders 04/15/20 14:29 EKG-12 Lead Stat 04/15/20 14:45 Complete Blood Count AUTO DIFF Stat Comprehensive Metabolic Panel Stat Lactate (Lactic Acid) Stat Lipase Stat Magnesium Stat Partial Thromboplastin Time Stat Phosphorous Stat Prothrombin Time INR Stat Troponin & CK Cardiac Panel Stat Vital Signs Vital signs: Vital Signs - 8 hr 04/15/20 14:48 04/15/20 15:29 04/15/20 15:30 Temperature 98.3 F Pulse Rate 69 69 69 Respiratory Rate 14 14 14 Blood Pressure 133/81 Pulse Oximetry 95 97 95 04/15/20 16:00 04/15/20 16:30 04/15/20 17:00 Temperature Pulse Rate 69 69 Respiratory Rate 22 14 Blood Pressure 140/82 133/79 126/78 Pulse Oximetry 97 97 04/15/20 17:56 Temperature Pulse Rate 69 Respiratory Rate 12 Blood Pressure 143/83 H Pulse Oximetry 96 Medical Decision Making Lab Data Lab results reviewed: Yes I reviewed the patient's lab results. Result diagrams: 04/15/20 14:45 04/15/20 14:45 Labs: Lab Results 04/15/20 04/15/20 04/15/20 Range/Units 14:45 14:45 14:45 WBC 7.7 (4.5-11.0) X10^3/uL RBC 4.28 L (4.5-5.9) X10^6/uL Hgb 13.7 (13.5-17.5) g/dL Hct 41.1 (41-53) % MCV 96.0 (80-100) fL MCH 32.1 (26-34) PG MCHC 33.4 (30-36) % RDW 15.9 H (11.6-14.8) % Plt Count 172 (150-400) X10^3/uL Neut % (Auto) 63.9 (50-75) % Lymph % (Auto) 24.4 L (25-40) % [place] % (Auto) 8.7 (3-14) % Eos % (Auto) 2.0 (2-4) % Baso % (Auto) 1.0 (0-2) % Neut # (Auto) 4900 (3074-7083) /uL Lymph # (Auto) 1900 (8642-8262) /uL [place] # (Auto) 700 (0-900) /uL Eos # (Auto) 200 (0-450) /uL Baso # (Auto) 100 (0-100) /uL PT 22.2 H (10.1-12.7) SECONDS INR 1.9 H (0.9-1.3) APTT 30 D (26.4-36.2) SECONDS Sodium 132 L (137-145) mmol/L Potassium 4.7 (3.4-5.1) mmol/L Chloride 99 (98-107) mmol/L Carbon Dioxide 26 (22-32) mmol/L BUN 60 H (9-20) mg/dL Creatinine 1.60 H (0.66-1.25) mg/dL Estimated GFR 41.8 L (>60) mL/min BUN/Creatinine Ratio 37.5 H (6-22) Glucose 97 (80-110) mg/dL Lactate (0.7-2.1) mmol/L Calcium 9.1 (8.4-10.2) mg/dL Phosphorus (2.3-3.7) mg/dL Magnesium (1.6-2.3) mg/dL Total Bilirubin 1.1 (0.2-1.3) mg/dL AST 37 (17-59) IU/L ALT 32 (<50) IU/L Alkaline Phosphatase 60 (38-126) U/L Total Creatine Kinase 31 L (55-170) U/L CK-MB (CK-2) TNP CK-MB (CK-2) Rel Index TNP Troponin I 0.033 (0.01-0.034) ng/mL Total Protein 7.1 (6.3-8.2) g/dL Albumin 3.8 (3.5-5.0) g/dL Globulin 3.3 (1.7-4.1) g/dL Albumin/Globulin Ratio 1.2 (1.0-2.8) Lipase 244 (23-300) U/L 04/15/20 04/15/20 Range/Units 14:45 14:45 WBC (4.5-11.0) X10^3/uL RBC (4.5-5.9) X10^6/uL Hgb (13.5-17.5) g/dL Hct (41-53) % MCV (80-100) fL MCH (26-34) PG MCHC (30-36) % RDW (11.6-14.8) % Plt Count (150-400) X10^3/uL Neut % (Auto) (50-75) % Lymph % (Auto) (25-40) % [place] % (Auto) (3-14) % Eos % (Auto) (2-4) % Baso % (Auto) (0-2) % Neut # (Auto) (0574-7034) /uL Lymph # (Auto) (9225-1867) /uL [place] # (Auto) (0-900) /uL Eos # (Auto) (0-450) /uL Baso # (Auto) (0-100) /uL PT (10.1-12.7) SECONDS INR (0.9-1.3) APTT (26.4-36.2) SECONDS Sodium (137-145) mmol/L Potassium (3.4-5.1) mmol/L Chloride (98-107) mmol/L Carbon Dioxide (22-32) mmol/L BUN (9-20) mg/dL Creatinine (0.66-1.25) mg/dL Estimated GFR (>60) mL/min BUN/Creatinine Ratio (6-22) Glucose (80-110) mg/dL Lactate 1.1 (0.7-2.1) mmol/L Calcium (8.4-10.2) mg/dL Phosphorus 3.8 H (2.3-3.7) mg/dL Magnesium 2.4 H (1.6-2.3) mg/dL Total Bilirubin (0.2-1.3) mg/dL AST (17-59) IU/L ALT (<50) IU/L Alkaline Phosphatase (38-126) U/L Total Creatine Kinase (55-170) U/L CK-MB (CK-2) CK-MB (CK-2) Rel Index Troponin I (0.01-0.034) ng/mL Total Protein (6.3-8.2) g/dL Albumin (3.5-5.0) g/dL Globulin (1.7-4.1) g/dL Albumin/Globulin Ratio (1.0-2.8) Lipase (23-300) U/L ECG Data Attestation: I personally reviewed and interpreted this ECG as follows: Prior ECG tracings: not available for review Interpretation: Sinus tachycardia Ventricular rate of 109 Normal axis Normal QRS Normal QTC No ST T wave changes MDM Narrative Medical decision making narrative: Patient has a relatively benign GI exam. He is Hemoccult positive however no signs of hemorrhoids or fissures. He has no abdominal tenderness. His INR is 1.9 today. He is not hypotensive and his H&H is unremarkable. I feel patient does not need admitted in the hospital for this. He does need a colonoscopy we discussed doing this as a outpatient following up with his primary doctor. No indication for blood transfusion. Given his reason for why he is on the Coumadin I will keep him on it for now. During his stay here in the ER he did have a short run of nonsustained ventricular tachycardia. He was asymptomatic from this. He was not hypotensive during the time period he does have a pacemaker defibrillator in place although he did not feel his defibrillator fire. Review of his notes show that he has had arrhythmias in the past. I did discuss the case with Dr. Castro who stated given the fact that he already has a pacemaker defibrillator there would be little that would be done as a inpatient. I was able to discuss the case with the APC at the patient's primary provider's office who stated that they will call him for a close follow-up. Patient only that he artery had an appointment scheduled the beginning of next week. Patient did seem somewhat upset that he was being discharged home and not admitted for continued workup of his GI bleed. He was not concerned about his abnormal heart rhythm. Patient was given return precautions. He expressed understanding and agreement. Discharge Plan Departure Patient Disposition: Home Clinical Impression: Bright red blood per rectum, Non-sustained ventricular tachycardia Discharge Date/Time: 04/15/20 18:03 Instructions: DI for Rectal Bleeding Activity Restrictions/Additional Instructions: Continue all of your medications as directed. You should be receiving a call from your primary doctor's office tomorrow for a follow-up. If you do not receive a call please keep your scheduled appointment that you are to have. Return to the emergency department for any new symptoms. Prescriptions: No Action Fish Oil 1,000 mg PO DAILY Qty: 0 RF: 0 anastrozole 1 mg tablet 0.5 mg PO 2XW RF: 0 carvedilol 25 mg tablet 25 mg PO BID RF: 0 spironolactone 25 mg tablet 12.5 mg PO BID RF: 0 levothyroxine 50 mcg tablet 50 mcg PO DAILY RF: 0 thyroid (pork) 15 mg tablet 45 mg PO DAILY RF: 0 testosterone 1 applic topical DIRECTED RF: 0 furosemide 40 mg tablet 60 mg PO DAILY Qty: 0 RF: 0 lisinopril 5 mg tablet 5 mg PO DAILY Qty: 30 RF: 0 warfarin [Coumadin] 4 mg Tablet See Rx Instructions .ROUTE .COMPLEX RF: 0 warfarin [Coumadin] 3 mg Tablet See Rx Instructions .ROUTE .COMPLEX RF: 0 acetaminophen 325 mg Tablet 975 mg PO TID Qty: 30 RF: 0 docusate sodium [DOK] 100 mg Capsule 100 mg PO BID Qty: 60 RF: 0 calcium carbonate-vitamin D3 [Oyster Shell Calcium-Vit D3] 500 mg(1,250mg) - 200 unit Tablet 1 ea PO BIDWM Qty: 60 RF: 0 oxycodone 5 mg Tablet 5 mg PO Q4HR PRN (Reason: Pain, Moderate (4-6)) Qty: 10 RF: 0 polyethylene glycol 3350 17 gram Powder In Packet 17 g PO DAILY Qty: 30 RF: 0 Referrals: Matt Arenas MD [Primary Care Provider] -
[2020-04-15 15:17] LABS: Troponin I 0.033 ng/mL (0.01-0.034)
--- NOTE | 2020-04-15 15:17 | PC.NURSE ---
Pt had 14 beat run of vtach. pt denies any sx during that and did not realize anything had happened. Dr Simmons aware
[2020-04-15 17:20] LABS: Magnesium 2.4 mg/dL (1.6-2.3); Phosphorous 3.8 mg/dL (2.3-3.7)
== END 2020-04-15 18:03 | disposition home or self-care (01) ==
PROVIDERS: Emergency Provider Emergency Medicine; Family Provider Family Medicine; PCP Internal Medicine
DX: I47.2 Ventricular tachycardia (principal); K62.5 Hemorrhage of anus and rectum; I48.91 Unspecified atrial fibrillation; Z79.01 Long term (current) use of anticoagulants; Z95.0 Presence of cardiac pacemaker
CPT/HCPCS: 36415; 80053; 82550; 83605; 83690; 83735; 84100; 84484; 85025; 85610; 85730; 93005; 99283; 99284